=== PATIENT | male | born 1965 | race Caucasian/White ===

== ENCOUNTER → 2022-04-17 | Outpatient (CLI) | payer OTHER, SELFPAY ==
--- NOTE | 2022-04-17 19:07 | CT_ITS ---
STUDY: CT LEFT LOWER EXTREMITY WITHOUT CONTRAST REASON FOR EXAM: Left hip osteoarthritis, surgical planning. TECHNIQUE: Transaxial CT imaging of the lower extremity was performed. Sagittal and coronal images were reconstructed. Individualized dose optimization techniques were used for this CT. COMPARISON: None. FINDINGS: Hips: There are subchondral radiolucencies and sclerosis with flattening of the superior left femoral head suggestive of avascular necrosis (coronal reconstruction 70-75). There is joint space loss and mild subchondral cystic change of the left acetabulum (coronal reconstructions 68-70). There is mild joint space narrowing of the superomedial right hip (coronal reconstruction 67). There is vascular calcification. There is enlargement of the prostate (coronal reconstruction 74). Knees: There is mild joint space narrowing of the lateral femorotibial compartment of the left knee (coronal reconstruction 31). There is mild joint space narrowing of the medial femorotibial compartment of the right knee (coronal reconstruction 28). CT/Extremity Lower without Contra IMPRESSION: Left hip osteoarthritis with flattening of the superior left femoral head suggestive of avascular necrosis. Electronically Signed: Rodrick Montez MD at 14:52 EDT ,
== END | disposition home or self-care (01) ==
PROVIDERS: PCP Family Medicine; Visit Provider Student in an Organized Health Care Education/Training Program
DX: M16.12 Unilateral primary osteoarthritis, left hip (principal); M25.552 Pain in left hip
CPT/HCPCS: 73700

== ENCOUNTER 2022-05-10 05:24 | Day surgery (SDC) | payer OTHER, SELFPAY ==
[2022-05-10] VITALS (14 sets, daily range): BP systolic 109–146; BP diastolic 71–122; PULSE 63–111; RESP 16–18; TEMP 35.7–37.2; O2SAT 94–100; BMI 27.0
[2022-05-10] MEDS: Lactated Ringers 1,000 ML 999 ML IV (06:28)
[2022-05-10] MEDS: Magnesium 1 GM over 15 mins IV (06:28)
[2022-05-10] MEDS: Gabapentin 600 MG Tablet PO (06:29)
[2022-05-10] MEDS: Acetaminophen 500 MG Tablet 1000 MG PO (06:29)
[2022-05-10] MEDS: Celecoxib 200 MG Capsule 400 MG PO (06:29)
[2022-05-10 06:36] LABS: Bedside Glucose 104 mg/dL (74-106)
[2022-05-10] MEDS: Cefazolin 2 GM in 0.9% Normal Saline 100 ML IV (07:30)
--- NOTE | 2022-05-10 07:30 | FEM_PTH ---
PATIENT: MARY HECK [place] [facility] [place][id number] AGE/SX: 56/M ROOM: RE05/10/[address]: Dr. Jd Vincent DO : 1965 BED: DIS: 05/10/2022 SPEC #: [id number] RECD: 05/10/22 10:57 STATUS: EWA RELevon #: [id number] MARNIE: 05/10/22 07:[address]: Jd Vincent DEPT: SURGICAL PATHOLOGY RECD BY: Rhea Ga ENTERED: 05/10/22 11:30 SP TYPE: FEM HEAD OTHR DR: Dr. Wilfredo Reno MD Tissues: Femoral region, NOS Procedures: Decalcification bone/plaque Surgery Specimen Level V HEADER OPERATION: ERAS, total hip replacement robotic arm assist PRE-OP DIAGNOSIS: Unilateral primary osteoarthritis left hip TISSUE SUBMITTED: Left hip bone MICROSCOPIC DIAGNOSIS Bone and tissue of left hip, total hip resection: Severe degenerative joint disease. AM:dee 05/16/2022 MICROSCOPIC DESCRIPTION Slides are reviewed. GROSS DESCRIPTION Received is one container labeled with the patient's name and designated left hip bone. The specimen consists of a deformed femoral head measuring 4.5 x 4.5 x 4 cm. Portion of femoral neck measures up to 1 cm in length. Focal royal-yellow geographic area is also noted on the surface measuring 4.5 x 4 cm. Two pieces of soft tissue are noted attached to the femoral head measuring in aggregate 4.5 x 3.5 x 1 cm. The articular surface displays prominent osteophyte formation, eburnation and bone erosion. Packing House Supervisor sections are submitted in two cassettes as follows: 1 - soft tissue, 2 ? femoral head after decalcification. / SJ:dee 05/10/2022 TC:5 CPT: 24859, 78369
[2022-05-10] MEDS: Lactated Ringers 1,000 ML 75 ML IV ×2 (07:31→10:01)
[2022-05-10] MEDS: TXA 1000mg in NS100 100ml (IVPB at Closure) 660 MG IV (07:45)
[2022-05-10] MEDS: dexAMETHasone 10 MG/ML Vial IV (07:50)
[2022-05-10] MEDS: TXA 1000mg in NS100 100ml (IVPB at Incision) 660 MG IV (09:50)
--- NOTE | 2022-05-10 10:56 | OP.PCM_ITS ---
Report of Operation Date of Procedure: 05/10/22 Description of Surgical Findings:: Preoperative diagnosis: Left hip avascular necrosis Postoperative diagnosis: Left hip avascular necrosis Procedure: Robotic assisted left total hip arthroplasty Surgeon: Jd Vincent DO Wireless Sales Associate: Kristine Perez PA-C Anesthesia: General endotracheal Anthesiologist: Complications: None apparent Drains: None Estimated blood loss: 200 cc Urinary output: none recorded IV fluids: 1500 cc crystalloid Specimens: Femoral head Surgical implants: [place] Accolade II 127 degree neck angle hip stem size #6, Biolox delta ceramic V 40 femoral head 36 mm outer diameter -2.5 mm neck length, [place] Trident X3 10 degree polyethylene insert, Trident 2 TriTanium cluster hole acetabular shell 54 mm diameter Indications: This is a 56-year-old male seen in the outpatient setting for left hip pain. X-rays showed minimal joint space narrowing superiorly but did show some femoral acetabular impingement. Patient also has extensive lumbar degenerative disc disease. He was referred to me for a left hip intra-articular corticosteroid injection. He underwent this about 3 months ago. He had very brief but complete relief of his left hip and groin pain. Pain quickly returned. I recommended a left total hip arthroplasty. Preoperative CT scan was utilized for Basilio software. CT scan demonstrated significant collapse of his femoral head concerning for avascular necrosis. I reviewed the procedure with the patient, its risk, benefits, alternatives. Risks included but were not limited to bleeding, infection, loss of life or limb, risk of anesthesia, neurovascular injury, persistent pain, instability, need for additional surgery, failure of orthopedic hardware, loosening, osteolysis, need for assistive devices long-term, leg length discrepancy. Patient expressed understanding wish to proceed with surgery. Description of procedure: I greeted the patient in same-day surgery holding area the day of surgery. He was identified by name, medical record number, and date of . All questions were answered to patient satisfaction. The operative extremity was marked with a surgical marker. Informed consent was confirmed with the patient. Patient underwent spinal anesthetic in the PACU prior to the procedure. At time of his procedure, patient brought the operative suite and positioned supine initially on a standard operating table. Gentle MAC anesthesia was administered. Patient was then positioned in a lateral decubitus position with the left side up. An axillary roll was placed under the patient's right axilla. The right fibular head was free. We then prepped and draped the right lower extremity in normal, sterile orthopedic fashion. Prior to the procedure, the [facility] plan was reviewed and appeared appropriate based on the patient's CT scan and anatomy. We performed a timeout with all parties in attendance in agreement with the side, site, and operation to be performed. No concerns were voiced and would like to proceed. 1 g TXA IV as well as 2 g Ancef was administered prior to the incision by anesthesia staff. 1 g TXA IV was administered at time of closure additionally. I first elected to place our pelvic array with a curvilinear incision over the iliac crest just posterior to the ASIS. I bluntly dissected down the level of the periosteum. I then drilled 3 intracortical pins with excellent cortical purchase. Pelvic array was then assembled and positioned appropriately. I then turned my attention to the hip. A standard posterior lateral incision was made curvilinear over the posterior lateral hip, centered on the tip of the greater trochanter. Full-thickness skin incision was made, approximately 12 cm in length. I sharply dissected down the level of the fascia caitlyn. Fascia caitlyn was then incised in line with the incision. I bluntly dissected through the raphae of the gluteus don. Femoral checkpoint was placed at this point. We then registered his femoral anatomy prior to dislocating the hip. I then internally rotated the hip. Limited gluteal bursectomy was performed to identify the short external rotators. A Cobra retractor was placed under his gluteus medius. Short external rotators were taken down with Bovie cautery and tagged for later repair with #2 Ethibond suture. This identified the underlying capsule. A trapezoidal shaped capsulotomy was made over the femoral neck carried posteriorly to the acetabular labrum. Labrum was released and the hip was dislocated. I then marked a standard femoral neck cut 1 fingerbreadth above the lesser trochanter. Sagittal saw was used to carefully cut the femoral neck. Femoral head was removed and examined. Significant collapse of the superior femoral dome and fragmentation of cartilage with loose bodies noted in the joint was noted. It was sent to pathology per hospital policy. I then turned my attention to the acetabulum. Cobra retractors were placed anterior and posteriorly. Self-retaining retractor was placed superiorly. Acetabular labrum was excised with a long handled knife. Acetabular pulmonary was excised with Bovie cautery. Hemostasis was excellent at this point. I then registered the acetabulum with the Anna Lozabai robot successfully. I then brought in the Basilio robot with the acetabular reaming arm to a size 54. This was reamed and the planned position to the planned depth. Reamer was then removed. There was excellent bleeding bone at the base and excellent remaining anterior posterior oates of the acetabulum. 54 mm acetabular component was selected for and attached to the rn acute arm of the robot. I placed the acetabular component near planned position before attaching to the robot. The robot then held the acetabular shell in position while I impacted it to an appropriate depth. The acetabular cup was then removed from the robotic arm. It had excellent rim fit. I placed a 25 mm cancellous screw through the cup for additional fixation in the posterior superior quadrant. I then selected a 10 degree posterior lipped liner and impacted this per garbage collector recommendations. I then turned my attention to the femur. Box chisel was then utilized to gain access to the femoral canal. Canal finder was placed. Sequential broaches were used and press-fit manner. A final size 6 achieved excellent vertical and rotational stability. We then trialed with a 127 degree hip stem as templated. A -2.5 and -5 mm neck length were trialed. The -2.5 mm neck achieved greater stability as well as allowed some lengthening of the limb, which was desired. Trials were then removed. We copiously irrigated the wound with normal saline solution, Betadine solution. A size 6 stem was then impacted with excellent fixation. Final head was then impacted over clean, dry Portillo taper neck. Final reduction was performed. A posterior capsular repair was performed with #2 Ethibond suture and bone tunnels, as well as the short external rotator repair. Femoral checkpoint was removed. Pelvic array pins were removed. IT band was closed watertight with #1 strata fix suture. Deeper fascial layers were closed with 0 Vicryl suture in interrupted fashion. Subcutaneous layers were reapproximated with 2-0 Vicryl suture and skin reapproximated with running subcuticular 3-0 strata fix and skin glue. Pelvic array incision was closed with buried 2-0 Vicryl suture and skin glue.. A silver dressing was applied. Patient tolerated procedure well without complication. He was positioned back in the supine position on his hospital bed. He was transferred to PACU in stable condition. A pillow was placed between the patient's leg to be present while he is in bed. Need for skilled catalog library assistant: Kristine Perez PA-C was critical to the outcome of the case. During the course of the procedure the physician catalog library assistant played a vital role. Her intimate knowledge of my steps in the procedure aided in safe and expedient completion of the procedure. The PA played a vital role in positioning particularly in obtaining the appropriate positioning. The PA was also vital in the retraction of soft tissues during the exposure and protecting vital structures. The PA was also vital and protecting soft tissues during times of bony cuts. She also played a vital role in closure with my direct supervision. The PA was also important during reduction and dislocation of the joint and trials intraoperatively. Post Operative Plan: Plan for discharge home after same-day joint replacement protocol. He is to be seen by physical and occupational therapies prior to discharge. He has outpatient therapy scheduled tomorrow. Weightbearing: Weightbearing as tolerated left lower extremity, posterior hip precautions Antibiotics: None DVT Prophylaxis: Aspirin 81 mg twice daily to start tomorrow [place]: None Dressing: Maintain silver dressing x 5 days X-Rays: PACU x-rays were reviewed demonstrated well-positioned left total hip arthroplasty implant. Follow-up 2-week x-rays in the office. Follow-up: 2 weeks in my office as scheduled
--- NOTE | 2022-05-10 10:59 | RAD_ITS ---
STUDY: X-RAY - PELVIS AND LEFT HIP REASON FOR EXAM: Male, 56 years old. Post-op L LORE -- in PACU TECHNIQUE: 2 views of the pelvis and hip. COMPARISON: None. FINDINGS: The patient is status post left total hip replacement. There is good alignment. Postoperative soft tissue changes. RAD/Hip Min 2 Views (Portable) IMPRESSION: Status post left total hip replacement. There is good alignment. Postoperative soft tissue swelling. Electronically Signed: Jose Guadalupe Kearns MD at 14:44 EDT ,
--- NOTE | 2022-05-10 11:08 | DCINST_ITS ---
Discharge Instructions Follow Up Care Test Results: Test results from this visit will be discussed in further detail at your follow- up appointment, if applicable. Discharge Plan Admission Primary Reason for Your Visit: Left total hip replacement Attending Provider: Jd Vincent Primary Care Provider: Wilfredo Reno Instructions Additional Instructions / Restrictions: Follow preprinted instructions from your surgeons office Discharge Orders/Prescriptions Prescriptions: No Action atorvastatin 20 mg tablet 10 mg PO DAILY Label Comments: TAKE 1/2 (ONE-HALF) TABLET BY MOUTH EVERY DAY AT BEDTIME meloxicam 15 mg tablet 15 mg PO DAILY Label Comments: TAKE 1 TABLET BY MOUTH ONCE DAILY tramadol 50 mg tablet 50 mg PO QHS Label Comments: TAKE 1 TABLET BY MOUTH EVERY 6 HOURS NEEDED FOR PAIN lisinopril 5 mg tablet 5 mg PO DAILY Label Comments: TAKE 1 TABLET BY MOUTH ONCE DAILY Referrals / Follow Up: Jd Vincent DO [Med Staff - Active Staff] - Within 2 Weeks Wilfredo Reno MD [Primary Care Provider] - Disposition Disposition (needs filled in before D/C Order can be placed): Home, Self Care
== END 2022-05-10 16:37 | disposition home or self-care (01) ==
LOC: SDC 05:24 → AC 05:29
PROVIDERS: PCP Family Medicine; Referring Provider Student in an Organized Health Care Education/Training Program; Visit Provider Student in an Organized Health Care Education/Training Program
PROC: 8E0Y0CZ Robotic Assisted Procedure of Lower Extremity, Open Approach (ICD-10-PCS; CPT 27130; principal; 2022-05-10 07:00)
DX: M16.12 Unilateral primary osteoarthritis, left hip (principal); M87.052 Idiopathic aseptic necrosis of left femur; I10 Essential (primary) hypertension; E78.00 Pure hypercholesterolemia, unspecified; E66.3 Overweight; Z71.3 Dietary counseling and surveillance; Z68.27 Body mass index [BMI] 27.0-27.9, adult; Z72.89 Other problems related to lifestyle; Z79.899 Other long term (current) drug therapy; Z87.891 Personal history of nicotine dependence
CPT/HCPCS: 27130; S2900; 01214; 73502; 82962; 88307; 88311; 97162; C1776; J7120; J3475

== ENCOUNTER → 2023-04-18 | Outpatient (CLI) | payer OTHER, SELFPAY ==
--- NOTE | 2023-04-18 08:11 | CT_ITS ---
CT BILATERAL LOWER EXTREMITY WITH 3-D IMAGING [facility]. CLINICAL INDICATION: PAIN RIGHT HIP TECHNIQUE: Axial CT images of the BILATERAL lower extremity was performed without IV contrast material. Coronal and sagittal reformats were provided. RADIATION DOSAGE (If Supplied By Facility): CTDIvol = ( 12.20 ) mGy, DLP = ( 865.16 ) mGycm COMPARISON: No relevant prior comparison study available FINDINGS: Bones: Multiple axial tomographic images of the hips and knee were obtained. Coronal and sagittal reconstruction was obtained as well. There is evidence of a degenerative arthritis of both sacroiliac joints more prominent on the right side. The patient is status post left total hip replacement. There is a moderate to marked in degree of joint space narrowing of the right hip joint with the subchondral heterogeneity of the femoral head. Avascular necrosis should be ruled out. Imaging of both knee joints was obtained. There is a mild degree of joint space narrowing involving the medial and lateral compartments of the knee joint. Findings suggestive of chondrocalcinosis. Soft Tissues: The deep soft tissue structures are unremarkable. The superficial soft tissues are unremarkable without evidence of edema, hematoma, or foreign body. CT/Extremity Lower without Contra IMPRESSION: Moderate to marked degree of joint space narrowing of the right hip joint with findings suggestive of avascular necrosis of the right femoral head. The patient is status post left total hip replacement. Electronically Signed: Jose Guadalupe Kearns MD at 14:11 EDT ,
== END | disposition home or self-care (01) ==
PROVIDERS: PCP Family Medicine; Referring Provider Student in an Organized Health Care Education/Training Program; Visit Provider Student in an Organized Health Care Education/Training Program
DX: M87.051 Idiopathic aseptic necrosis of right femur (principal); M16.11 Unilateral primary osteoarthritis, right hip; M25.551 Pain in right hip
CPT/HCPCS: 73700

== ENCOUNTER 2023-05-09 05:18 | Day surgery (SDC) | payer OTHER, SELFPAY ==
--- NOTE | 2023-04-18 08:08 | EKG12_ITS ---
Test Reason : PRE OP Blood Pressure : / mmHG Vent. Rate : 066 BPM Atrial Rate : 066 BPM P-R Int : 154 ms QRS Dur : 084 ms QT Int : 350 ms P-R-T Axes : 001 018 -09 degrees QTc Int : 366 ms Normal sinus rhythm Normal ECG Confirmed by PENNIE CLARK, YVES ([id number]), sound editor AIDEN SHELDON ([id number]) on 04/19/2023 1:56:39 PM Referred By: Jd Vincent Confirmed By:YVES CASPER MD
--- NOTE | 2023-04-18 08:35 | RAD_ITS ---
STUDY: X-RAY CHEST REASON FOR EXAM: Male, 57 years old. Preoperative evaluation. TECHNIQUE: Frontal and lateral views of the chest. COMPARISON: None. FINDINGS: Hyperinflation. There is no demonstrated pleural abnormality. Normal size heart. Normal mediastinum and beth. Normal visualized pulmonary arteries. Mild aortic tortuosity. Normal visualized thoracic spine. Normal visualized ribs, clavicles, and shoulders. No abnormality of the visualized soft tissue structures of the upper abdomen. RAD/Chest PA and Lateral IMPRESSION: Hyperinflation with no acute or active cardiopulmonary disease. Electronically Signed: Eliel Crump MD at 10:49 EDT ,
[2023-04-18 09:22] LABS: Absolute Lymphocyte Count 1.95 X10^3/uL (0.83-4.51); Basophil% 1.5 % (0-1); Eosinophil# 0.13 X10^3/uL; Eosinophils% 1.9 % (0-5); Hematocrit 45.2 % (40-54); Hemoglobin 15.2 g/dL (13.0-16.5); Lymphocyte # 1.95 X10^3/ul (0.83-4.51); Lymphocyte % 28.9 % (19-41); Mean Corp Hgb Conc 33.6 g/dL (32-36); Mean Corpuscular Hgb 31.4 pg (27.0-32.0); Mean Corpuscular Volume 93.4 fL (80-94); Mean Platelet Vol. 9.2 fl (6.2-12.0); Monocyte# 0.59 X10^3/uL; Monocyte% 8.7 % (0-10); NRBC Flagged by Analyzer 0 % (0-5); Neutrophil # 3.95 X10^3/uL (2.7-7.7); Neutrophil % 58.6 % (47-70); Platelet Count 253 K/mm3 (150-450); RBC Distribution Width CV 13.4 % (11.6-14.6); Red Blood Count 4.84 M/mm3 (4.6-6.2); White Blood Count 6.8 K/mm3 (4.4-11.0)
[2023-04-18 09:49] LABS: Albumin, Serum 4.5 g/dL (3.2-5.0); Anion Gap 6 (5-15); BUN 16 mg/dL (7-18); Calcium,Total 9.6 mg/dL (8.5-10.1); Chloride 104 mmol/L (98-107); Creatinine, Serum 0.89 mg/dL (0.70-1.30); EST Glomerular Filtration Rate 93 mL/min (>60); Est Glom Filt Rate - Afr Amer 112 mL/min (>60); Glucose 98 mg/dL (74-106); Magnesium 2.6 mg/dL (1.6-2.6); Potassium 4.5 mmol/L (3.5-5.1); Sodium Level 137 mmol/L (136-145)
[2023-05-09] VITALS (7 sets, daily range): BP systolic 104–153; BP diastolic 42–97; PULSE 69–102; RESP 16; TEMP 35.9–36.5; O2SAT 96–99; BMI 27.3
--- NOTE | 2023-05-09 | HIP_PTH ---
PATIENT: MARY HECK LOC: [facility] – [place] U#:[id number] AGE/SX: 57/M ROOM: RE05/09/[address]: Dr. Jd Vincent DO : 1965 BED: DIS: 05/09/2023 SPEC #: [id number] RECD: 05/09/23 11:19 STATUS: EWA REQ #: [id number] MARNIE: 05/09/23 00:[address]: Jd Vincent DEPT: SURGICAL PATHOLOGY RECD BY: Quang Vera ENTERED: 05/09/23 11:33 SP TYPE: TOTAL HIP OTHR DR: Dr. Wilfredo Reno MD Tissues: Hip, NOS Procedures: Decalcification bone/plaque Surgery Specimen Level IV HEADER OPERATION: ERAS, robotic assisted right total hip arthroplasty PRE-OP DIAGNOSIS: Osteoarthritis right hip TISSUE SUBMITTED: Bone right hip MICROSCOPIC DIAGNOSIS Bone and tissue of right hip, total hip resection: Severe degenerative joint disease. AM:dee 05/13/2023 MICROSCOPIC DESCRIPTION Slides are reviewed. GROSS DESCRIPTION Received is one container labeled with the patient's name and designated bone right hip. The specimen consists of a royal femoral head measuring 5.0 x 5.5 x 4.5 cm. Focal area shows disruption of the cartilage. The articular surface displays prominent osteophyte formation, eburnation and bone erosion. The soft tissue entirely consists of bone reaming and measures 6.5 x 7.0 x 2.0 cm. Candy Packer sections are submitted in two cassettes after decalcification as follows: 1 - bone reaming, 2 - femoral head. / KELIN:dee 05/09/2023 TC:5 CPT: 62516, 15810
[2023-05-09 06:22] LABS: Bedside Glucose 117 mg/dL (74-106)
[2023-05-09] MEDS: Acetaminophen 500 MG Tablet 1000 MG PO (06:32)
[2023-05-09] MEDS: Lactated Ringers 1,000 ML 999 ML IV ×2 (06:33→08:00)
[2023-05-09] MEDS: Gabapentin 600 MG Tablet PO (06:33)
[2023-05-09] MEDS: Magnesium 1 GM over 15 mins IV (06:33)
[2023-05-09] MEDS: Cefazolin 2 GM in 0.9% Normal Saline (100mL Bag) 100 ML IV (07:29)
[2023-05-09] MEDS: dexAMETHasone 10 MG/ML Vial IV (07:40)
[2023-05-09] MEDS: TXA 1000mg in NS100 100ml (IVPB at Incision) 660 MG IV (07:40)
[2023-05-09] MEDS: TXA 1000mg in NS100 100ml (IVPB at Closure) 660 MG IV (09:20)
[2023-05-09] MEDS: JPS (Morphine 10mg/ml) OPERA.SITE (09:22)
--- NOTE | 2023-05-09 10:00 | RAD_ITS ---
STUDY: X-RAY - PELVIS AND RIGHT HIP REASON FOR EXAM: Male, 57 years old. Post op LORE -- in PACU. TECHNIQUE: 2 views of the pelvis and right hip. COMPARISON: None. FINDINGS: There is a new right hip total arthroplasty in place. There is no periprosthetic fracture. There is adjacent soft tissue gas, compatible with recent surgery. Normal bilateral iliac wings, sacroiliac joints and visualized sacrum. Normal bilateral superior and inferior pubic rami. Normal pubic symphysis. Normal bilateral ischial tuberosities. There is a non-specific bowel gas pattern. Normal visualized soft tissue structures. RAD/Hip Min 2 Views (Portable) IMPRESSION: New right hip arthroplasty, with no periprosthetic fracture. Electronically Signed: Clay Randhawa MD at 9:55 EDT ,
--- NOTE | 2023-05-09 10:10 | DCINST_ITS ---
Discharge Instructions Follow Up Care Test Results: Test results from this visit will be discussed in further detail at your follow- up appointment, if applicable. Discharge Plan Admission Primary Reason for Your Visit: Right total hip arthroplasty Attending Provider: Jd Vincent Primary Care Provider: Wilfredo Reno Instructions Additional Instructions / Restrictions: Follow preprinted instructions from your surgeons office Discharge Orders/Prescriptions Prescriptions: New cephalexin 500 mg capsule 500 mg PO Q6H 1 Days Qty: 4 0RF Continued atorvastatin 20 mg tablet 10 mg PO DAILY Patient Comments: TAKE 1/2 (ONE-HALF) TABLET BY MOUTH EVERY DAY AT BEDTIME meloxicam 15 mg tablet 15 mg PO DAILY Patient Comments: TAKE 1 TABLET BY MOUTH ONCE DAILY lisinopril 5 mg tablet 5 mg PO DAILY Patient Comments: TAKE 1 TABLET BY MOUTH ONCE DAILY Other Ambulatory Orders: 12 Lead EKG (Routine) Timeframe: [id number] Location: None Selected Ordered By: Dr. Jd Vincent Referrals / Follow Up: Wilfredo Reno MD [Primary Care Provider] - Disposition Disposition (needs filled in before D/C Order can be placed): Home, Self Care
[2023-05-09] MEDS: Lactated Ringers 1,000 ML 125 ML IV (10:21)
[2023-05-09] MEDS: Cefazolin 1 GM/50 ML BAG IV (12:17)
[2023-05-09] MEDS: oxyCODONE 5 MG Tablet PO (13:21)
--- NOTE | 2023-05-09 14:52 | OP.PCM_ITS ---
Report of Operation Date of Procedure: 05/09/23 Description of Surgical Findings:: Preoperative diagnosis: Right hip primary osteoarthritis Postoperative diagnosis: Right hip primary osteoarthritis Procedure: Robotic arm assisted right total hip arthroplasty Surgeon: Jd Vincent DO Shorer: Kristine Perez PA-C Anesthesia: General endotracheal Instrument Lens Grinder Apprentice: Deshawn Fiore CRNA Complications: None apparent Drains: None Estimated blood loss: 150 cc Urinary output: none recorded IV fluids: 2200 cc crystalloid Specimens: Femoral head Surgical implants: [place] Accolade II 132 degree neck angle hip stem size #6, Biolox delta ceramic V 40 femoral head 36 mm outer diameter -5 mm neck length, [place] Trident X3 10 degree polyethylene insert, Trident 2 TriTanium cluster hole acetabular shell 56 mm diameter Indications: This is an 57-year-old male seen in the outpatient setting for right hip pain. X-rays revealed severe right hip osteoarthritis. He failed oral [id number] analgesics including NSAIDs and Tylenol, activity modification. I recommended surgical intervention the form of right robotic assisted total hip arthroplasty. I reviewed the procedure with the patient, its risk, benefits, alternatives. Risks included but were not limited to bleeding, infection, loss of life or limb, risk of anesthesia, neurovascular injury, persistent pain, instability, need for additional surgery, failure of orthopedic hardware, loosening, osteolysis, need for assistive devices long-term, leg length discrepancy. Patient expressed understanding wish to proceed with surgery. Description of procedure: I greeted the patient in same-day surgery holding area the day of surgery. He was identified by name, medical record number, and date of . All questions were answered to patient satisfaction. The operative extremity was marked with a surgical marker. Informed consent was confirmed with the patient. Patient underwent spinal anesthetic in the PACU prior to the procedure. At time of his procedure, patient brought the operative suite and positioned supine initially on a standard operating table. Gentle MAC anesthesia was administered. Patient was then positioned in a lateral decubitus position with the right side up. Patient was held in place with the elevated hip positioner systems. An axillary roll was placed under the patient's left axilla. The left fibular head was free. We then prepped and draped the right lower extremity in normal, sterile orthopedic fashion. Prior to the procedure, the Basilio plan was reviewed and appeared appropriate based on the patient's CT scan and anatomy. We performed a timeout with all parties in attendance in agreement with the side, site, and operation to be performed. No concerns were voiced and would like to proceed. 1 g TXA IV as well as 2 g Ancef was administered prior to the incision by anesthesia staff. 1 g TXA IV was administered at time of closure additionally. I first elected to place our pelvic array with a curvilinear incision over the iliac crest just posterior to the ASIS. I bluntly dissected down the level of the periosteum. I then drilled 3 intracortical pins with excellent cortical purchase. Pelvic array was then assembled and positioned appropriately. I then turned my attention to the hip. A standard posterior lateral incision was made curvilinear over the posterior lateral hip, centered on the tip of the greater trochanter. Full-thickness skin incision was made, approximately 12 cm in length. I sharply dissected down the level of the fascia caitlyn. Fascia caitlyn was then incised in line with the incision. I bluntly dissected through the raphae of the gluteus don. Femoral checkpoint was placed at this point. We then registered the femoral anatomy prior to dislocating the hip. I then internally rotated the hip. Limited gluteal bursectomy was performed to identify the short external rotators. A Cobra retractor was placed under his gluteus medius. Short external rotators were taken down with Bovie cautery and tagged for later repair with #2 Ethibond suture. This identified the underlying capsule. A hockey-stick shaped capsulotomy was made over the femoral neck carried posteriorly to the acetabular labrum. Labrum was released and the hip was dislocated. I then marked a standard femoral neck cut 1 fingerbreadth above the lesser trochanter. Sagittal saw was used to carefully cut the femoral neck. Femoral head was removed and examined and appeared benign. It was sent to pathology per hospital policy. I then turned my attention to the acetabulum. Cobra retractors were placed anterior and posteriorly. Self-retaining retractor was placed superiorly. Acetabular labrum was excised with a long handled knife. Acetabular pulvinar was excised with Bovie cautery. Hemostasis was excellent at this point. I then registered the acetabulum with the [employer] robot successfully. I then brought in the Basilio robot with the acetabular reaming arm to a size 56. This was reamed and the planned position to the planned depth. Reamer was then removed. There was excellent bleeding bone at the base and excellent remaining anterior posterior oates of the acetabulum. 56 mm acetabular component was selected for and attached to the ict account manager arm of the robot. I placed the acetabular component near planned position before attaching to the robot. The robot then held the shell in position while I impacted it to an appropriate depth. The acetabular cup was then removed from the robotic arm. It had excellent rim fit. A unicortical single 25 mm cancellous screw was then placed through the acetabular shell for additional fixation. I then selected a 10 degree posterior lipped liner and impacted this per locksmith helper recommendations. I then turned my attention to the femur. Femoral elevator was placed below the greater trochanter and the hip was brought into a flexed and internally rotated position. Box chisel was then utilized to gain access to the femoral canal. Canal finder was placed. Sequential broaches were used and press-fit manner. A final size 6 achieved excellent vertical and rotational stability. We then trialed with a 127 degree hip stem as templated. I trialed a -2.5 mm neck length. This was excessively tight with excess abductor tension. The operative extremity was significantly longer than the contralateral lower extremity. The hip was dislocated. I elected to trial a 132 degree hip stem with a -5 mm neck length. The hip was reduced. There is excellent stability through all planes of motion. Leg lengths were equal on examination and with robotic measurements. Final dislocation of trials was performed. Trials were then removed. We copiously irrigated the wound with normal saline solution. A size 6 stem was then impacted with excellent fixation. Final head was then impacted over clean, dry Portillo taper neck. Final reduction was performed. A 3-minute dilute Betadine soak was performed. Wound was then copiously irrigated with normal saline solution. A posterior capsular repair was performed with #2 Ethibond suture and bone tunnels, as well as the short external rotator repair. Femoral checkpoint was removed. Pelvic array pins were removed. IT band was closed watertight with #1 strata fix suture. Deeper fascial layers were closed with 0 Vicryl suture in interrupted fashion. Subcutaneous layers were reapproximated with 2-0 Vicryl suture and skin reapproximated with running subcuticular 3-0 strata fix and skin glue. Pelvic array incision was closed with buried 2-0 Vicryl suture and skin glue.. A silver dressing was applied. Patient tolerated procedure well without compl ication. He was positioned back in the supine position on his hospital bed. He was transferred to PACU in stable condition. A pillow was placed between the patient's leg to be present while he is in bed. Need for skilled assistant casino shift manager: Kristine Perez PA-C was critical to the outcome of the case. During the course of the procedure the physician assistant casino shift manager played a vital role. Her intimate knowledge of my steps in the procedure aided in safe and expedient completion of the procedure. The PA played a vital role in positioning particularly in obtaining the appropriate positioning. The PA was also vital in the retraction of soft tissues during the exposure and projecting vital structures. The PA was also vital and protecting soft tissues during times of bony cuts. She also played a vital role in closure with my direct supervision. The PA was also important during reduction and dislocation of the joint and trials intraoperatively. Post Operative Plan: Plan for same-day discharge after meeting same-day surgery criteria. We will mobilize patient with therapy after spinal anesthesia resolves. Weightbearing: Weightbearing as tolerated right lower extremity, posterior hip precautions. Antibiotics: Ancef 1 g prior to discharge, 24 hours oral Keflex DVT Prophylaxis: Aspirin 81 mg twice daily to start tomorrow [place]: None Dressing: Maintain silver dressing x 5 days X-Rays: PACU x-rays were reviewed demonstrated well-positioned right total hip arthroplasty implant. Follow-up 2-week x-rays in the office. Follow-up: 2 weeks in my office as scheduled. Physical therapy scheduled to start tomorrow as an outpatient.
== END 2023-05-09 15:01 | disposition home or self-care (01) ==
LOC: SDC 05:24 → AC 05:26
PROVIDERS: PCP Family Medicine; Referring Provider Student in an Organized Health Care Education/Training Program; Visit Provider Student in an Organized Health Care Education/Training Program
PROC: 8E0Y0CZ Robotic Assisted Procedure of Lower Extremity, Open Approach (ICD-10-PCS; CPT 27130; principal; 2023-05-09 07:00)
DX: M16.11 Unilateral primary osteoarthritis, right hip (principal); M87.051 Idiopathic aseptic necrosis of right femur; I10 Essential (primary) hypertension; E78.00 Pure hypercholesterolemia, unspecified; F10.90 Alcohol use, unspecified, uncomplicated; Z96.642 Presence of left artificial hip joint; Z79.899 Other long term (current) drug therapy; Z87.891 Personal history of nicotine dependence
CPT/HCPCS: 27130; S2900; 01214; 36415; 71046; 73502; 80048; 82040; 82962; 83735; 85025; 87077; 87081; 88305; 88311; 93005; 97162; C1776; J7120; J2405; J3475

== ENCOUNTER → 2024-12-24 | Outpatient (CLI) | payer OTHER, SELFPAY ==
[2024-12-24 10:48] LABS: Hematocrit 45.6 % (40-54); Hemoglobin 15.9 g/dL (13.0-16.5); Mean Corp Hgb Conc 34.9 g/dL (32-36); Mean Corpuscular Hgb 31.7 pg (27.0-32.0); Mean Platelet Vol. 9.5 fl (6.2-12.0); Platelet Count 259 K/mm3 (150-450); RBC Distribution Width CV 13.6 % (11.6-14.6); RBC Distribution Width SD 45.8 fl (35.1-43.9); Red Blood Count 5.01 M/mm3 (4.6-6.2); White Blood Count 5.5 K/mm3 (4.4-11.0)
[2024-12-24 11:23] LABS: ALB/GLOB Ratio 1.4 RATIO (0.9-2.4); AST(SGOT) 64 U/L (<=37); Alanine Aminotransfer ALT/SGPT 23 U/L (<=46); Albumin, Serum 4.8 g/dL (3.4-4.8); Alkaline Phosphatase 77 U/L (40-129); Anion Gap 12 (5-15); BUN 13 mg/dL (4-19); BUN/Creat Ratio 13.8 RATIO (10-20); Calcium,Total 10.1 mg/dL (7.6-11.0); Carbon Dioxide 21.3 mmol/L (21.0-32.0); Chloride 103 mmol/L (98-108); Creatinine, Serum 0.97 mg/dL (0.70-1.20); EST Glomerular Filtration Rate 89 (>60); Globulin 3.5 g/dL (2.2-4.2); Glucose 102 mg/dL (70-99); Magnesium 2.3 mg/dL (1.5-2.2); Potassium 4.5 mmol/L (3.3-5.1); Protein, Total 8.2 g/dL (5.9-8.4); Sodium Level 136 mmol/L (133-145); Thyroid Stim Hormone (TSH) 0.852 uIU/mL (0.300-4.200); Total Bilirubin 1.12 mg/dL (0.00-1.30)
== END | disposition home or self-care (01) ==
LOC: LAB 09:50
PROVIDERS: PCP Family Medicine; Referring Provider Internal Medicine Cardiovascular Disease; Visit Provider Internal Medicine Cardiovascular Disease
DX: I10 Essential (primary) hypertension (principal); R55 Syncope and collapse
CPT/HCPCS: 36415; 80053; 83735; 84443; 85027

== ENCOUNTER → 2025-02-03 | Outpatient (CLI) | payer OTHER, SELFPAY ==
--- OUTSIDE RECORDS SUMMARY | 2025-02-03 07:23 | XMS RPT_ITS | CCD ---
Author Organization [facility] Care Team Providers Care Children'S Book Author Name Role Phone Rowdy CLARK, Wilfredo Evans Unavailable Wilfredo Reno MD Unavailable German CLARK, Dr. Sanchez ([place] [facility]) A Unavail able Nuria CLARK, Annia Whatley Unavailable Mara OPERATIONS RESEARCH SCIENTIST, Sudha Unavailable Isaías OPERATIONS RESEARCH SCIENTIST, Ely Whatley Unavailable Unavailable Gino OPERATIONS RESEARCH SCIENTIST, Francia Unavailable Unavailable Elijah CLARK, Bladimir Lobato Unavailable Arielle SERNAC, Danyel Whatley Unavailable Arielle Yuliya C Unavailable Unavailable Killian OPERATIONS RESEARCH SCIENTIST, Taylor Unavailable Unavailable King PERLA-C, Jose Lorenzana Unavailable Connor THOMAS, Teresita Lobato Unavailable Unavaila ble Usama OPERATIONS RESEARCH SCIENTIST, Abdirahman Unavailable Unavailable Mutersbaugh OPERATIONS RESEARCH SCIENTIST, Amina K Unavailable Unavai yarelis SERNAC, Elizabeth J Unavailable Hema Thompson (Scribe) Unavailable Unavailab le Jaime OPERATIONS RESEARCH SCIENTIST, Annia De Los Santos Unavailable Unavailab le [place] OPERATIONS RESEARCH SCIENTIST, Antoinette Ewing Unavailable Unavailab yves Mtz MA, Taylor Unavailable Unavailable Vess OPERATIONS RESEARCH SCIENTIST, Neilee L Unavailable Unavailable Wengerd OPERATIONS RESEARCH SCIENTIST, Rosita Unavailable Unavailabl e Emmy OPERATIONS RESEARCH SCIENTIST, Thea N Unavailable Unavaila ble Zaugg OPERATIONS RESEARCH SCIENTIST, Asuncion Unavailable Unavailable Unavailable Unavailable Fern Pal MA Unavailable Unavailable MOHAMUDTIRSO Attending Unavailable WILFREDO RENO Admitting Unavailable WILFREDO RENO Attending Unavailable WILFREDO RENO Consulting Unavailable WILFREDO RENO Primary Care Unavailable PROVIDER, UNKNOWN Consulting Unavailable PROVIDER, UNKNOWN Consulting Unavailable PROVIDER, UNKNOWN Consulting Unavailable [facility] Unavailable Rowdy CLARK, Dr. Villalobos Primary Care Provider Rowdy CLARK, Dr. Villalobos Referring Provider Dr. Clementina Peñaloza MD Attending Provider Dr. Clementina Peñaloza MD Referring Provider Clementina Peñaloza Attending Unavailable Wilfredo Reno Referring Unavailable Wilfredo Reno Primary Care Unavailable Wilfredo Reno Primary Care Unavailable Clementina Peñaloza Referring Unavailable Clementina Peñaloza Attending Unavailable Allergies Allergy Classification Reported Allergen(s) Allergy Type Date of Onset Reaction(s) Facility (3 sources) Environmental Allergies: Uncoded; Translations: [Environmental Allergies: Uncoded] Allergy to substance 5 [facility] Medications Current Medications Medication Drug Class(es) Dates Sig (Normalized) Sig (Original) atorvastatin 10 mg oral tablet (20 sources) HMG-CoA Reductase Inhibitor Start: 09-17-2024 atorvastatin 10 mg tablet ; 1 (one) Tablet qhs for 0 days Quantity: 90 {Tablet} Refills: 1 Ordered: 17-Sep-2024 MD Wilfredo Reno Start: 17-Sep-2024 Start: 07-23-2024 atorvastatin 1 0 mg tablet ; 1 (one) Tablet qhs for 0 days Quantity: 90 {Tablet} Refills: 1 Ordered: 23-Jul-2024 MD Wilfredo Reno Start: 23-Jul-2024 Start: 05-12-2024 atorvastatin 1 0 mg tablet ; 1 (one) Tablet qhs for 0 days Quantity: 60 {Tablet} Refills: 0 Ordered: 12-May-2024 MD Cl Youssef Start: 12-May-2024 Start: 10-22-2023 atorvastatin 1 0 mg tablet ; 1 (one) Tablet qhs for 0 days Quantity: 90 {Tablet} Refills: 1 Ordered: 22-Oct-2023 MD Wilfredo Reno Start: 22-Oct-2023 Start: 07-17-2023 atorvastatin 1 0 mg tablet ; 1 (one) Tablet qhs for 0 days Quantity: 90 {Tablet} Refills: 1 Ordered: 17-Jul-2023 MD Wilfredo Reno Start: 17-Jul-2023 Start: 04-27-2022 End: 12-17-2024 take 10 mg by mouth once daily Atorvastatin 20 mg tabl et Discontinued 10 mg PO DAILY April 27, 2022 12:00am December 17, 2024 10:05am Start: 04-27-2022 take 10 mg by mouth once daily Atorvastatin Active 10 MG PO DAILY April 27, 2022 12:00am lisinopril 5 mg oral tablet (20 sources) Angiotensin Converting Enzyme Inhibitor Start: 04-27-2022 lisinopriL 5 mg tablet ; 1 (one) Tablet daily for 0 days Quantity: 90 {Tablet} Refills: 1 Ordered: 12-Oct-2024 MD Wilfredo Reno Start: 12-Oct-2024 Comments: [facility] Start: 07-07-2010 End: 11-09-2010 take 1 tablet by mouth once daily LISINOPRIL, 10MG (Oral Tablet) ; 1 (one) Tab daily for 0 days Quantity: 30 {Tab} Refills: 2 Ordered: 09-Nov-2010 MD Wilfredo Reno Start: 07-Jul-2010 End: 09-Nov-2010 Status: Inactive Comment on above: [facility] traMADol hydrochloride 50 mg oral tablet (1 source) Opioid Agonist Start: 04-27-2022 take 50 mg by mouth at bedtime Tramadol Active 50 MG PO AT BEDTIME April 27, 2022 12:00am Completed/Discontinued Medications Medication Drug Class(es) Dates Sig (Normalized) Sig (Original) [id number] 200 actuat albuterol 0.09 mg/actuat metered dose inhaler (20 sources) beta2-Adrenergic Agonist Start: 05-14-2013 End: 09-25-2013 take 1-2 puff(s) by inhalation every four to six hours as needed PROAIR HFA, 108 (90 Base)MCG/ACT (Inhalation Aerosol Solution) ; 1-2 puff(s) every 4-6 hours as needed for 0 days Quantity: 1 {inhaler(s)} Refills: 0 Ordered: 25-Sep-2013 ALAN Sandoval Start: 14-May-2013 End: 25-Sep-2013 Status: Inactive Comments: Medication taken as needed. Comment on above: Medication taken as needed. amoxicillin 500 mg oral capsule (20 sources) Penicillin-class Antibacterial Start: 06-08-2010 End: 06-18-2010 take 1 capsule by mouth three times daily AMOXICILLIN, 500MG (Oral Capsule) ; 1 Capsule three times daily for 10 days Quantity: 30 {Capsule} Refills: 0 Ordered: 08-Jun-2010 MD Annia Quiñones Start: 08-Jun-2010 End: 18-Jun-2010 Status: Inactive amoxicillin 875 mg / clavulanate 125 mg oral tablet (20 sources) Penicillin-class Antibacterial Start: 12-04-2016 End: 12-14-2016 take 1 tablet by mouth twice daily Augmentin 875-125 MG Oral Tablet ; 1 Tablet BID for 10 days Quantity: 20 {Tablet} Refills: 0 Ordered: 04-Dec-2016 YAA Tan Start: 04-Dec-2016 End: 14-Dec-2016 Status: Inactive azithromycin 500 mg oral tablet (20 sources) Macrolide Antimicrobial Start: 10-08-2017 End: 10-11-2017 take 1 tablet by mouth once daily Azithromycin 500 MG Oral Tablet ; 1 (one) Tablet daily for 3 days Quantity: 3 {Tablet} Refills: 0 Ordered: 08-Oct-2017 MD Bladimir Nava Start: 08-Oct-2017 End: 11-Oct-2017 Status: Inactive cephalexin 500 mg oral capsule (20 sources) Cephalosporin Antibacterial Start: 04-07-2024 End: 04-17-2024 cephALEXin 500 mg capsule ; 2 (two) Capsule bid for 10 days Quantity: 40 {Capsule} Refills: 0 Ordered: 07-Apr-2024 MD Wilfredo Reno Start: 07-Apr-2024 End: 17-Apr-2024 Status: Inactive Start: 06-26-2023 End: 07-06-2023 cephALEXin 500 mg capsule ; 2 (two) Capsule bid for 10 days Quantity: 40 {Capsule} Refills: 0 Ordered: 26-Jun-2023 MD Wilfredo Reno Start: 26-Jun-2023 End: 06-Jul-2023 Status: Inactive Start: 05-09-2023 End: 12-17-2024 take 1 capsule by mouth every six hours Cephalexin 500 mg capsule Discontinued 500 mg PO EVERY 6 HOURS 11 10May 09, 2023 12:00am December 17, 2024 10:04am cyclobenzaprine hydrochloride 10 mg oral tablet (20 sources) Muscle Relaxant Start: 03-18-2019 End: 08-24-2019 take 1 tablet by mouth three times daily as needed for pain Cyclobenzaprine HCl 10 MG Oral Tablet ; 1 (one) Tablet tid prn back pain for 0 days Quantity: 30 {Tablet} Refills: 0 Ordered: 24-Aug-2019 ALAN Vyas Antoinette Ewing Start: 18-Mar-2019 End: 24-Aug-2019 Status: Inactive fluticasone propionate 0.05 mg/actuat metered dose nasal spray (20 sources) Corticosteroid Start: 12-04-2016 End: 01-03-2017 take 2 spray(s) nasal route once daily Fluticasone Propionate 50 MCG/ACT Nasal Suspension ; 2 (two) sprays each nostril sprays each nostril daily for 30 days Quantity: 1 {Bottle} Refills: 0 Ordered: 04-Dec-2016 ALAN Talbot Start: 04-Dec-2016 End: 03-Jan-2017 Status: Inactive 60 actuat fluticasone propionate 0.1 mg/actuat / salmeterol 0.05 mg/actuat dry powder inhaler (20 sources) Corticosteroid, beta2-Adrenergic Agonist Start: 05-29-2013 End: 09-25-2013 ADVAIR DISKUS, 100-50MCG/DOSE (Inhalation Aerosol Powder Breath Activated) ; 1 inhalation two times daily for 0 days Quantity: 4 {Aero_Pow_Br_Act} Refills: 0 Ordered: 25-Sep-2013 ALAN Sandoval Start: 29-May-2013 End: 25-Sep-2013 Status: Inactive meloxicam 15 mg oral tablet (20 sources) Nonsteroidal Anti-inflammatory Drug Start: 04-27-2022 End: 12-17-2024 take 1 tablet by mouth once daily Meloxicam 15 mg tablet Discontinued 15 mg PO DAILY April 27, 2022 12:00am December 17, 2024 10:04am Meloxicam Status : Inactive methylPREDNISolone 4 mg oral tablet (20 sources) Corticosteroid Start: 07-16-2016 End: 07-22-2016 Medrol 4 MG Oral Tablet Therapy Pack ; 1 Tab as directed for 6 days Quantity: 1 {Dose_Pack} Refills: 0 Ordered: 16-Jul-2016 MD Bladimir Nava Start: 16-Jul-2016 End: 22-Jul-2016 Status: Inactive Start: 04-13-2014 End: 04-19-2014 MEDROL (DELANO), 4MG (Oral Tabl et) ; 1 Tab as directed for 6 days Quantity: 1 {Dose_Pack} Refills: 0 Ordered: 13-Apr-2014 MD Bladimir Nava Start: 13-Apr-2014 End: 19-Apr-2014 Status: Inactive naproxen 500 mg oral tablet (20 sources) Nonsteroidal Anti-inflammatory Drug Start: 07-16-2016 End: 12-04-2016 take 1 tablet by mouth twice daily as needed for pain Naproxen 500 MG Oral Tablet ; 1 (one) Tablet two times daily PRN pain for 0 days Quantity: 60 {Tablet} Refills: 3 Ordered: 04-Dec-2016 ALAN Willett Start: 16-Jul-2016 End: 04-Dec-2016 Status: Inactive predniSONE 20 mg oral tablet (20 sources) Start: 01-01-2022 End: 05-02-2022 take 3 tablets by mouth once daily, then take 2 tablets by mouth once daily, then take 1 tablet by mouth once daily, then take 0.5 tablet by mouth once daily predniSONE 20 MG Oral Tablet ; Tablet for 0 days Quantity: 20 {Tablet} Refills: 0 Ordered: 02-May-2022 SAMSON Mtz Start: 01-Jan-2022 End: 02-May-2022 Status: Inactive Comments: Take 3tabs qd for 3 days thenTake 2tabs qd for 3 days thenTake 1tab qd for 3 days thenTake 1/2tab qd for 4 days. Comment on above: Take 3tabs qd for 3 days thenTake 2tabs qd for 3 days thenTake 1tab qd for 3 days thenTake 1/2tab qd for 4 days. sildenafil 100 mg oral tablet (20 sources) Phosphodiesterase 5 Inhibitor Start: 09-16-2012 End: 04-13-2014 VIAGRA, 100MG (Oral Tablet) ; 1 (one) Tablet 30+ minutes before intercourse for 0 days Quantity: 2 {Tablet} Refills: 0 Ordered: 13-Apr-2014 ALAN Booth Start: 16-Sep-2012 End: 13-Apr-2014 Status: Inactive triamcinolone acetonide 0.25 mg/ml topical cream (20 sources) Corticosteroid Start: 04-13-2014 End: 01-04-2015 TRIAMCINOLONE ACETONIDE, 0.025% (External Cream) ; 1 (one) application(s) application(s) four times daily for 0 days Quantity: 80 {Gram} Refills: 0 Ordered: 04-Jan-2015 ALAN Willett Rosita Start: 13-Apr-2014 End: 04-Jan-2015 Status: Inactive Problems Active Problems Problem Classification Problem Date Documented Date Episodic/Chronic Abdominal pain (20 sources) Right upper quadrant pain; Translations: [Right upper quadrant pain] 09-05-2020 Episodic Alcohol-related disorders (5 sources) Alcohol abuse; Translations: [Alcohol abuse, uncomplicated] Onset: 12-24-2024 12-24-2024 Chronic Allergic reactions (20 sources) Contact dermatitis and other eczema due to plants [except food]; Translations: [Allergic condition] 02-10-2019 Episodic Asthma (20 sources) Reactive airway disease; Translations: [Unspecified asthma, uncomplicated] 02-10-2019 Chronic Disorders of lipid metabolism (20 sources) Hyperlipidemia; Translations: [Hyperlipidemia, unspecified] Onset: 12-24-2024 07-17-2023 Chronic Essential hypertension (20 sources) Benign essential hypertension; Translations: [Essential (primary) hypertension] Onset: 12-30-2024 07-15-2017 Chronic Immunizations and screening for infectious disease (20 sources) Requires diphtheria, tetanus and pertussis vaccination; Translations: [Encounter for immunization] 08-24-2019 Episodic Influenza (20 sources) Influenza; Translations: [Influenza due to unidentified influenza virus with other respiratory manifestations] 10-08-2017 Episodic Miscellaneous mental health disorders (20 sources) Psychosexual dysfunction associated with inhibited sexual excitement; Translations: [Other sexual dysfunction not due to a substance or known physiological condition] 12-04-2016 Chronic Osteoarthritis (20 sources) Osteoarthritis of left hip joint; Translations: [Unilateral primary osteoarthritis, left hip] 05-02-2022 Chronic Other aftercare (20 sources) Long-term (current) use of other medications 09-18-2011 Episodic Other circulatory disease (20 sources) Elevated blood pressure reading without diagnosis of hypertension 06-08-2010 Episodic Other connective tissue disease (20 sources) History of repair of hip joint; Translations: [Presence of left artificial hip joint] 07-17-2023 Chronic Comment on above: Sept 2022 Other connective tissue disease (2 sources) Recurrent falls ; Translations: [Repeated falls] 12-17-2024 Episodic Other connective tissue disease (1 source) Repeated falls; Translations: [Repeated falls] Onset: 12-24-2024 Episodic Other ear and sense organ disorders (20 sources) Impacted cerumen 06-08-2010 Episodic Other injuries and conditions due to external causes (20 sources) Injury of finger; Translations: [Unspecified injury of unspecified wrist, hand and finger(s), initial encounter] 02-10-2019 Episodic Other injuries and conditions due to external causes (20 sources) Injury of right rotator cuff; Translations: [Unspecified injury of muscle(s) and tendon(s) of the rotator cuff of right shoulder, initial encounter] 09-17-2024 Episodic Other injuries and conditions due to external causes (20 sources) Injury of left hand; Translations: [Unspecified injury of left wrist, hand and finger(s), initial encounter] 11-16-2024 Episodic Other non-traumatic joint disorders (20 sources) Hip pain; Translations: [Pain in right hip] 07-17-2023 Episodic Other non-traumatic joint disorders (20 sources) Pain in left shoulder; Translations: [Pain in joint, shoulder region] 02-10-2019 Episodic Other non-traumatic joint disorders (20 sources) Pain in right shoulder; Translations: [Pain in joint, shoulder region] 02-10-2019 Episodic Other nutritional; endocrine; and metabolic disorders (20 sources) Overweight in adulthood with body mass index of 25 or more but less than 30; Translations: [Body mass index (BMI) 26.0-26.9, adult] 01-22-2019 Episodic Other screening for suspected conditions (not mental disorders or infectious disease) (20 sources) Patient encounter status; Translations: [Encounter for screening for malignant neoplasm of colon] 2022 Episodic Other upper respiratory disease (1 source) Allergic rhinitis 04-02-2024 Chronic Other upper respiratory infections (20 sources) Sinusitis; Translations: [Chronic sinusitis, unspecified] 06-26-2023 Chronic Other upper respiratory infections (20 sources) Acute sinusitis; Translations: [Acute sinusitis, unspecified] 12-04-2016 Episodic Pneumonia (except that caused by tuberculosis or sexually transmitted disease) (20 sources) Pneumonia; Translations: [Pneumonia, unspecified organism] 05-14-2013 Episodic Residual codes; unclassified (20 sources) Sleep apnea; Translations: [Sleep apnea, unspecified] 07-17-2023 Chronic Residual codes; unclassified (20 sources) Tobacco user; Translations: [Tobacco use] 05-29-2013 Episodic Residual codes; unclassified (20 sources) Influenza vaccination declined; Translations: [Immunization not carried out because of patient refusal] 07-23-2024 Episodic Spondylosis; intervertebral disc disorders; other back problems (20 sources) Low back pain; Translations: [Lumbago] 07-17-2023 Episodic Sprains and strains (20 sources) Strain of knee; Translations: [Strain of unspecified muscle(s) and tendon(s) at lower leg level, right leg, initial encounter] 02-10-2019 Episodic Syncope (20 sources) Syncope; Translations: [Syncope and collapse] Onset: 12-24-2024 11-12-2024 Episodic Unclassified (20 sources) Follow up for multiple chronic conditions - The patient is here for follow-up of hyperlipidemia and hypertension. The patient always takes the prescribed medications. No side effects noted. The patient has an active lifestyle but no regular exercise program (walks a lot). The patient's out of office blood pressure checks occur rarely. The patient states that there is no recent angina or dyspnea and they do not have headaches. The patient states that the disease has no overall impact. Note for Multiple chronic conditions follow-up: Pt has a bump on his left shoulder that he wants checked. Present for many years 01-02-2023 Unclassified (20 sources) Follow Up for Multiple Chronic Conditions - The patient is here for follow-up of hyperlipidemia and hypertension. The patient usually takes the prescribed medications. No side effects noted (needs refills). The patient engages in regular exercise program 3-5 times per week (walks two miles a day). The patient's out of office blood pressure checks occur rarely and dietary compliance is fairly good usually adhering to recommendations. The patient states that there is no recent angina or dyspnea, weight has decreased (down 3 pounds) and headaches are rarely noted. Note for Multiple chronic conditions follow-up: Complains of frequent sweats and low back and hip pain. reviewed by [facility] 01-01-2022 Unclassified (20 sources) Follow Up for Multiple Chronic Conditions - The patient is here for follow-up of hyperlipidemia and hypertension. The patient always takes the prescribed medications. No side effects noted (needs refills). The patient engages in regular exercise program 3-5 times per week (walks daily). The patient's out of office blood pressure checks occur occasionally (Last home BP 125/86) and dietary compliance is fairly good usually adhering to recommendations. The patient states that there is no recent angina or dyspnea, weight has decreased (down 4 pounds) and headaches are rarely noted. Note for Multiple chronic conditions follow-up: reviewed by [facility] 03-06-2021 Unclassified (20 sources) Follow Up for Multiple Chronic Conditions - The patient is here for follow-up of hyperlipidemia and hypertension. The patient usually takes the prescribed medications. No side effects noted (will sometimes forget on weekends, needs refills today). The patient engages in regular exercise program 3-5 times per week (walks about 1 hour daily). The patient's out of office blood pressure checks occur rarely and dietary compliance is fairly good usually adhering to recommendations. The patient states that there is no recent angina or dyspnea, there are no vision changes or weakness, weight has decreased (2lbs) and they do not have headaches. Note for Multiple chronic conditions follow-up: States that he snores and would like to discuss treatment options. Does wear a nose strip that helps some. reviewed by [facility] 02-22-2020 Unclassified (20 sources) Follow Up for Multiple Chronic Conditions - The patient is here for follow-up of hyperlipidemia and hypertension. The patient usually takes the prescribed medications. No side effects noted (Has been out of Atorvastatin for 1 week. Needs refills). The patient engages in regular exercise program 3-5 times per week (walks). The patient's out of office blood pressure checks occur rarely and dietary compliance is fairly good usually adhering to recommendations. The patient states that there is no recent angina or dyspnea, weight has decreased (down 2 pounds) and headaches have been noticed occasionally. 02-11-2019 Unclassified (20 sources) Follow Up for Multiple Chronic Conditions - The patient is here for follow-up of hyperlipidemia and hypertension. The patient always takes the prescribed medications. No side effects noted. The patient has an active lifestyle but no regular exercise program. The patient's dietary compliance is good with close adherance to recommendations (Is currently on Paleo diet.). The patient states that there is no recent angina or dyspnea, there are no vision changes or weakness, pain is worse (Pt is having a lot of left shoulder pain. Using Naproxen 500 mg bid for this. States that he has a knot on top of shoulder today. Tender to touch.), weight is unchanged and they do not have headaches. The patient states that the disease has no overall impact. Note for Multiple chronic conditions follow-up: Labs done and ready to review. Has not been checking out of office Bp's. Declines flu vaccine. reviewed by [facility] 07-15-2017 Unclassified (20 sources) [facility] Routine Follow up - The patient is here for follow-up of hypertension and hyperlipidemia. The patient always takes the prescribed medications. No side effects noted. (does not always take Atorvastatin) The patient has an active lifestyle but no regular program. The patient's out of office blood pressure checks occur rarely and dietary compliance is fairly good usually adhering to recommendations. The patient states that there is no recent angina or dyspnea, there are no vision changes or weakness and they do not have headaches. Note for Routine chronic follow-up: Patient did quit smoking two weeks ago. 01-02-2017 Unclassified (20 sources) Follow Up for Multiple Chronic Conditions - The patient is here for follow-up of hypertension and hyperlipidemia. The patient always takes the prescribed medications. No side effects noted (However he was having some muscle aches when he first started on Atovastatin but that has subsided. Seems to be tolerating them better now. He has noticed that he feels tired and washout and wonders if BP is running too low. In office today it was 114/75. Says he noramlly BP uis 130/80-85.). The patient has an active lifestyle but no regular exercise program. The patient's out of office blood pressure checks occur occasionally (Does not have any BP reading with him today.) and dietary compliance is fairly good usually adhering to recommendations. The patient states that there is no recent angina or dyspnea, there are no vision changes or weakness, weight has increased (up about 1# from last visit.) and they do not have headaches. The patient states that the disease has no overall impact. Note for Multiple chronic conditions follow-up: Has not been fasting today. Declines flu vaccine today. reviewed by [facility] 08-09-2015 Unclassified (20 sources) [ADDITIONAL REASON] Cold Symptoms - Symptoms include nasal congestion (and has drainaige down back of throat.), scratchy throat, dry cough (but pt is a smoker.) and general malaise, but do not include wheezing, fever or headache. The onset was gradual 2 week(s) ago. The patient describes this as mild and worsening. Current treatment includes non-prescription cold medication (Nyquil at night.). Risk factors include smoking. Note for Upper respiratory infection: no one else at home sick. reviewed by [facility] 08-09-2015 Unclassified (20 sources) Follow up for multiple chronic conditions - The patient is here for follow-up of hypertension, hyperlipidemia and other condition(s) (reactive airway disease,ED.). The patient always takes the prescribed medications. No side effects noted. The patient engages in regular exercise program 1-3 times per week. The patient's out of office blood pressure checks occur frequently (138/80) and dietary compliance is fairly good usually adhering to recommendations. The patient states that breathing effort is stable, there is no recent angina or dyspnea, there are no vision changes or weakness, pain is worse (shoulder) and they do not have headaches. Note for Multiple chronic conditions follow-up: reviewed by [facility] 01-04-2015 Unclassified (20 sources) Follow Up for Multiple Chronic Conditions - The patient is here for follow-up of hypertension and hyperlipidemia. The patient always takes the prescribed medications. No side effects noted (Diet controlled for cholesterol.). The patient has an active lifestyle but no regular exercise program (and riding bike daily.). The patient's out of office blood pressure checks occur occasionally (Average at home BP is about 128/84-85.) and dietary compliance is fairly good usually adhering to recommendations. The patient states that there is no recent angina or dyspnea, there are no vision changes or weakness, weight has increased (up 2# from appt in Sep.) and they do not have headaches. Note for Multiple chronic conditions follow-up: Pt has eaten today. Declines flu vaccine. reviewed by [facility] 04-30-2014 Unclassified (20 sources) [ADDITIONAL REASON] Shoulder pain - The onset of the shoulder pain has been sudden following an incident not at work and has been occurring in an intermittent pattern for 25 years (Pt fell and hurt right shoulder but he never got it checked out. It never bothered him till about 2 years.). The course has been gradually worsening. The pain is characterized as a moderate to severe dull aching. The pain is described as being located in the right shoulder. Relieving factors include medication (Takes 2 Ibuprofen daily.). Note for Shoulder pain: Has pain whenever he moves arm backwards. He thinks he may have had it looked at back in but does not remember. Nothing was done about it. 04-30-2014 Unclassified (20 sources) Follow Up for Multiple Chronic Conditions - The patient is here for follow-up of hypertension. The patient always takes the prescribed medications. No side effects noted (forgets sometimes). The patient has an active lifestyle but no regular exercise program. The patient's out of office blood pressure checks occur frequently. The patient states that the disease has no overall impact. Note for Multiple chronic conditions follow-up: reviewed by [facility] 09-25-2013 Unclassified (20 sources) follow up pneumonia - Pt saw [facility] on 05-14-13 and was treated for pneumonia with augmentin. Pt still has dry cough that is worse at night, fatigue, no fever. Pt is still using his inhaler more at night than during the day (does help). Has used nyquil to help him sleep but cough still keeps him up at night. Still has some PND and sinus congestion. No h/o asthma or chronic breathing issues. 05-29-2013 Unclassified (20 sources) Follow Up for Multiple Chronic Conditions - The patient is here for follow-up of hypertension. The patient usually takes the prescribed medications. No side effects noted (Needs refills.). The patient engages in regular exercise program 3-5 times per week (Walks.). The patient's out of office blood pressure checks occur occasionally (125/75 is an average home reading.) and dietary compliance is fairly good usually adhering to recommendations. The patient states that weight has decreased (Down 7 pounds.) and they do not have headaches. Note for Multiple chronic conditions follow-up: reviewed by [facility] 04-01-2013 Unclassified (20 sources) Follow Up for Multiple Chronic Conditions - The patient is here for follow-up of hypertension. The patient always takes the prescribed medications. No side effects noted (Needs refills.). The patient has an active lifestyle but no regular exercise program. The patient's out of office blood pressure checks occur occasionally (120/80 is an average reading.) and dietary compliance is fairly good usually adhering to recommendations. The patient states that weight has increased (Up 9 pounds.) and they do not have headaches. Note for Multiple chronic conditions follow-up: reviewed by [facility] 09-16-2012 Unclassified (20 sources) Follow Up for Multiple Chronic Conditions - The patient is here for follow-up of hypertension. The patient usually takes the prescribed medications. No side effects noted (Needs refills. A couple times per month he won't take medications due to fatigue.). The patient has an active lifestyle but no regular exercise program. The patient's out of office blood pressure checks occur occasionally (130/80 is an average home reading.). The patient states that weight has increased (Up 3 pounds.) and they do not have headaches. Note for Multiple chronic conditions follow-up: Is fasting today. reviewed by [facility] 03-14-2012 Unclassified (20 sources) Follow Up for Multiple Chronic Conditions - The patient is here for follow-up of hypertension. The patient always takes the prescribed medications. No side effects noted. The patient has an active lifestyle but no regular exercise program. The patient's out of office blood pressure checks occur frequently (Average is about 133/75-78.). The patient states that there is no recent angina or dyspnea, there are no vision changes or weakness, weight is unchanged and they do not have headaches. Note for Follow Up for Multiple Chronic Conditions: Pt states is doing fairly well. No concerns except has been fighting a head cold for about a month. Is getting better but can feel sinuses draining pretty well. Is coughing some and coughing up drainage. No s/t, fever or anything- just can't shake it.Also wondering about getting ears flushed. Tried cleaning them out a home but unsuccessful.ALso has been fasting today for labs. reviewed by [facility] 10-12-2011 Unclassified (20 sources) Follow Up for Multiple Chronic Conditions - The patient is here for follow-up of hypertension. The patient always takes the prescribed medications. No side effects noted. The patient has an active lifestyle but no regular exercise program. The patient's out of office blood pressure checks occur frequently (Average Bp 135/80. Says at times he can feel it runs much lower and will get sluggish. Feels sluggish today and Bp 124/77. ). The patient states that there is no recent angina or dyspnea and they do not have headaches. Note for Follow Up for Multiple Chronic Conditions: Under a lot of stress at work otherwise doing ok. reviewed by [facility] 04-13-2011 Unclassified (20 sources) Follow up for multiple chronic conditions - The patient is here for follow-up of hypertension. The patient always takes the prescribed medications. No side effects noted. The patient has an active lifestyle but no regular program. The patient's out of office blood pressure checks occur occasionally. 08-08-2010 Unclassified (9 sources) Cold Symptoms - Symptoms include nasal congestion (and has drainaige down back of throat.), scratchy throat, dry cough (but pt is a smoker.) and general malaise, but do not include wheezing, fever or headache. The onset was gradual 2 week(s) ago. The patient describes this as mild and worsening. Current treatment includes non-prescription cold medication (Nyquil at night.). Risk factors include smoking. Note for Upper respiratory infection: no one else at home sick. reviewed by [facility] 08-09-2015 Unclassified (9 sources) [ADDITIONAL REASON] Follow Up for Multiple Chronic Conditions - The patient is here for follow-up of hypertension and hyperlipidemia. The patient always takes the prescribed medications. No side effects noted (However he was having some muscle aches when he first started on Atovastatin but that has subsided. Seems to be tolerating them better now. He has noticed that he feels tired and washout and wonders if BP is running too low. In office today it was 114/75. Says he noramlly BP uis 130/80-85.). The patient has an active lifestyle but no regular exercise program. The patient's out of office blood pressure checks occur occasionally (Does not have any BP reading with him today.) and dietary compliance is fairly good usually adhering to recommendations. The patient states that there is no recent angina or dyspnea, there are no vision changes or weakness, weight has increased (up about 1# from last visit.) and they do not have headaches. The patient states that the disease has no overall impact. Note for Multiple chronic conditions follow-up: Has not been fasting today. Declines flu vaccine today. reviewed by [facility] 08-09-2015 Unclassified (9 sources) Shoulder pain - The onset of the shoulder pain has been sudden following an incident not at work and has been occurring in an intermittent pattern for 25 years (Pt fell and hurt right shoulder but he never got it checked out. It never bothered him till about 2 years.). The course has been gradually worsening. The pain is characterized as a moderate to severe dull aching. The pain is described as being located in the right shoulder. Relieving factors include medication (Takes 2 Ibuprofen daily.). Note for Shoulder pain: Has pain whenever he moves arm backwards. He thinks he may have had it looked at back in but does not remember. Nothing was done about it. 04-30-2014 Unclassified (9 sources) [ADDITIONAL REASON] Follow Up for Multiple Chronic Conditions - The patient is here for follow-up of hypertension and hyperlipidemia. The patient always takes the prescribed medications. No side effects noted (Diet controlled for cholesterol.). The patient has an active lifestyle but no regular exercise program (and riding bike daily.). The patient's out of office blood pressure checks occur occasionally (Average at home BP is about 128/84-85.) and dietary compliance is fairly good usually adhering to recommendations. The patient states that there is no recent angina or dyspnea, there are no vision changes or weakness, weight has increased (up 2# from appt in ) and they do not have headaches. Note for Multiple chronic conditions follow-up: Pt has eaten today. Declines flu vaccine. reviewed by [facility] 04-30-2014 Unclassified (20 sources) Follow up for multiple chronic conditions - The patient is here for follow-up of hyperlipidemia and hypertension. The patient always takes the prescribed medications. No side effects noted. The patient has an active lifestyle but no regular exercise program. The patient states that the disease has no overall impact. Note for Multiple chronic conditions follow-up: reviewed by [facility] 01-02-2024 Unclassified (1 source) Follow up for multiple chronic conditions - The patient is here for follow-up of hyperlipidemia and hypertension. The patient always takes the prescribed medications. No side effects noted (Patient has not taken his lisinopril yet today). The patient has an active lifestyle but no regular exercise program. The patient's out of office blood pressure checks occur rarely (Not checking BP at home) and dietary compliance is fairly good usually adhering to recommendations. The patient states that there is no recent angina or dyspnea, weight has increased (up 4 lb) and they do not have headaches. Note for Multiple chronic conditions follow-up: reviewed by [facility] 01-28-2025 Past or Other Problems Problem Classification Problem Date Documented Da te Episodic/Chronic Unclassified (20 sources) Well adult male - The patient feels well with no complaints. The patient has a balanced diet. The patient exercises 3 - 4 times per week. The patient sleeps 8 hours per night. Note for Well adult male: reviewed by [facility] 07-17-2023 Unclassified (20 sources) Cold Symptoms - Symptoms include nasal congestion, runny nose, ear fullness, scratchy throat (due to PND), dry cough and general malaise. The onset was gradual 18 day(s) ago. The symptoms occur constantly. The patient describes this as mild and improving. Current treatment includes non-prescription cold medication (nyquil) and humidifier use. Risk factors do not include smoking. Medical history includes seasonal allergies. Note for Upper respiratory infection: reviewed by [facility] 06-26-2023 Unclassified (20 sources) Pre-operative clearance - Surgical procedure(s) planned: other (right hip surgery). Date of procedure: (05/04/2023) Surgeon: (Dr Vincent) and Location of procedure: ([facility]) There have been no problems with general anesthesia or blood/blood products. Note for Pre-operative clearance: reviewed by [facility] 04-11-2023 Unclassified (20 sources) Well adult male - The patient feels well with no complaints and is sleeping well. The patient has a balanced diet. The patient exercises daily. The patient sleeps 8 hours per night. Note for Well adult male: reviewed by [facility] 2022 Unclassified (20 sources) Pre-operative clearance - Surgical procedure(s) planned: other (left hip replacement). Date of procedure: (05/10/22) Surgeon: (Dr. Angelito Vincent) and Location of procedure: ([facility]) There have been no problems with general anesthesia or blood/blood products. 05-02-2022 Unclassified (20 sources) Well Adult, male - The patient feels well with no complaints, has good energy level and is sleeping well. The patient has a balanced diet and takes supplemental vitamins. The patient exercises 3 - 4 times per week (walks). The patient sleeps 8 hours per night. Note for Well Adult, male: reviewed by [facility] 09-05-2020 Unclassified (20 sources) Well Adult, male - The patient feels well with no complaints (complains of shoulder pain), has decreased energy level and is sleeping well. The patient has a balanced diet and takes no supplemental vitamins & iron. The patient exercises 3 - 4 times per week (yoga and walks). The patient sleeps 8 hours per night. Note for Well Adult, male: reviewed by [facility] 08-24-2019 Unclassified (20 sources) Back pain - The onset of the back pain has been acute and has been occurring in a persistent pattern for 5 days. The course has been increasing. The pain is characterized as a dull ache (back spasms). The pain is located in the lower back. The pain is precipitated by heavy weight lifting. The symptoms are relieved by lying down. Note for Back pain: He was moving a refridgerator.he had a work injury to the left knee and has been getting injection 03-18-2019 Unclassified (20 sources) Well adult male - The patient feels well with no complaints, has decreased energy level and is sleeping poorly (states that he snores, wears a nose strip). The patient has a balanced diet and takes supplemental vitamins. The patient exercises daily (walking 1 mile daily, during the warmer months will go bicycling 3x for 5-6 miles). The patient sleeps 7 hours per night. Note for Well adult male: Last lipid and CMP 06/20/2017.Is fasting this morning. reviewed by [facility] 07-25-2018 Unclassified (20 sources) Finger Pain - The pain is located in the of the left middle finger. This occurred 1 day(s) ago (fell yesterday). Symptoms include pain, swelling and finger bruising. The patient is right hand dominant. Note for Finger pain: It was deformed. He popped it nidhi into place. He fell back w hand behind him. 04-15-2018 Unclassified (20 sources) Follow Up for Multiple Chronic Conditions - The patient is here for follow-up of hyperlipidemia and hypertension. The patient always takes the prescribed medications. No side effects noted (needs a refill today on atorvastatin). The patient has an active lifestyle but no regular exercise program. The patient's out of office blood pressure checks occur rarely (BP machine stopped working, has not checked recently) and dietary compliance is good with close adherance to recommendations (trying to follow paleo diet). The patient states that breathing effort is stable, there is no recent angina or dyspnea, there are no vision changes or weakness, weight has decreased (1# since [facility]) and they do not have headaches. Note for Multiple chronic conditions follow-up: reviewed by [facility] 01-17-2018 Unclassified (20 sources) Cold Symptoms - Symptoms include nasal congestion, runny nose, sore throat, dry cough (hard cough, chest congestion), wheezing (while lying down will have wheezing. Some shortness of breath.), fever, chills and general malaise (aches), but do not include ear pain, ear fullness or headache. The onset was sudden 3 day(s) ago. The patient describes this as moderate in severity and worsening. Current treatment includes non-prescription cold medication and acetaminophen. Risk factors include smoking. The patient has been exposed to an individual with an upper respiratory infection (coworker). Medical history includes seasonal allergies (does take an allergy pill in spring and fall time), but patient denies history of asthma or tonsillectomy. 10-08-2017 Unclassified (20 sources) Cold Symptoms - Symptoms include nasal congestion, runny nose, sore throat (drainage) and productive cough (just started lastnight), but do not include ear pain, fever or headache. The onset was gradual 1 week(s) ago. The symptoms occur constantly. The patient describes this as moderate in severity and unchanged. Current treatment includes non-prescription cold medication and allergy medications. Medical history includes seasonal allergies and recurrent sinusitis, but patient denies history of recurrent strep pharyngitis, asthma, tonsillectomy or recurrent ear infections. Note for Upper respiratory infection: Reviewed by [facility]. 12-04-2016 Unclassified (20 sources) Knee pain - The onset of the knee pain has been sudden following no specific incident and has been occurring in a persistent pattern for 2 days. The course has been worsening. The knee pain is moderate to severe in the right knee. The knee pain is characterized as a sharp stabbing. The knee pain is described as being located in the entire knee. The knee pain is aggravated by physical activity, work duties, twisting, squatting, kneeling, climbing, stairs, prolonged standing and prolonged rest. There were no relieving factors. The symptoms have been associated with joint swelling, instability, painful ROM, decreased ROM, difficulty arising from chair, difficulty going up and down stairs and difficulty with sports activities. There were no previous diagnostic tests. There were no previous evaluations. There has been no previous physical therapy. There has been no previous surgeries. There is no use of assistive devices. There has been no previous medications. 07-16-2016 Unclassified (20 sources) Cold Symptoms - Symptoms include sneezing, nasal congestion, runny nose, purulent discharge (greenish discharge.), scratchy throat, productive cough (expectorating a whitish phlegm. PO 99%.), fever (but never actually took it at home. Just would get chills on/off. No temerature in office today.), chills, general malaise and headache, but do not include ear pain, wheezing or facial pain. The onset was gradual 1 week(s) ago. The patient describes this as severe and worsening. Current treatment includes non-prescription cold medication (and has used VICKS on chest past 2 nights and using Nyquil at night but nothing seems to really help.). Risk factors include smoking. Note for Upper respiratory infection: No one else at home sick. reviewed by [facility] 06-11-2016 Unclassified (20 sources) Rash - The onset of the rash has been acute and has been occurring in a persistent pattern for 4 days. The course has been decreasing. The rash is characterized as red and raised above the skin (water filled). The rash was first seen on the neck. It spread to the back. There has been associated itching. There has been associated itching. Note for Rash: Patient complains of his right eye watery excessively right after he noted the rash starting. That, since, has resolved. 04-13-2014 Unclassified (20 sources) Cold Symptoms - Symptoms include nasal congestion, runny nose (mostly just PND), ear fullness, productive cough (can't get phlegm to come up all the way), chills (nightsweats; hasn't checked his temperature) and facial pain (cheeks), but do not include sore throat or headache. The onset was sudden 1 week(s) ago. The symptoms occur constantly. The patient describes this as moderate in severity and unchanged. Current treatment includes non-prescription cold medication and NSAIDs (2 this am). The patient has not been exposed to an individual with similar symptoms. Medical history includes seasonal allergies, but patient denies history of recurrent sinusitis, recurrent strep pharyngitis, asthma, tonsillectomy or recurrent ear infections. Note for Upper respiratory infection: No energy. Not eating as much. Used angel's last night. + hoarseness. 05-14-2013 Unclassified (20 sources) Blood Pressure - Pt here because for years he thought he probably had high blood pressure but 2 weeks ago was in and saw [facility] for ear infection and pressure then was 155/100. Has been monitoring it and states that it has been running about 170's over 104. Is having headaches with this as well. Pt has been worrying about it and felt needed to be checked. 07-07-2010 Unclassified (20 sources) Cold Symptoms - Symptoms include nasal congestion, ear pain (left sided), sore throat (thick on left side, notes some PND), fever (sweat last night), general malaise and facial pain (around left eye). The onset was 4 day(s) ago. Current treatment includes NSAIDs. The patient has not been exposed to an individual with similar symptoms (but did spend some time in the cool night air). Note for Cold Symptoms: has new granddaughter that he will meet this weekend and he wants to be safe meeting her and not being contagious 06-08-2010 Unclassified (20 sources) Allergic rhinitis - The onset of the allergic rhinitis has been gradual and has been occurring in a persistent pattern for 9 days. The course has been constant. The allergic rhinitis is described as moderate. Associated symptoms include itchy ears, itchy eyes (matted shut this am), itchy nose, runny nose, sore throat (PND) and watery eyes. The symptoms are aggravated by exposure to pollens and spring season. The symptoms are not relieved by any method. Note for Allergic rhinitis: patient mowed last night and it made symptoms much worsetired and also PNDpatient has used cold medicine, pt took a 24 hr allergy pill yesterday reviewed by [facility] 04-02-2024 Unclassified (16 sources) Well adult male - The patient feels well with no complaints, has good energy level and is sleeping poorly (patient does sleep good sometimes, but has trouble staying asleep some nights). The patient has a balanced diet. The patient exercises none (He normally walks when the weather permits). The patient sleeps 7 (8) hours per night. Note for Well adult male: reviewed by [facility] 07-23-2024 Unclassified (13 sources) Shoulder pain - The onset of the shoulder pain has been gradual following an incident not at work (he was pulling the wood splitter and he felt something after that. Then yesterday while cutting and loading the firewood it started to hurt more) and has been occurring in an intermittent pattern for 1 week. The course has been recurrent. The pain is characterized as a moderate sharp stabbing. The pain is described as being located in the right shoulder and is aggravated by physical activity, overhead activity and lifting. Relieving factors include nothing (he tried his THC cream but it did not help. Tylenol and ibuprofen did not help much either). The symptoms have been associated with muscle weakness, painful ROM, decreased ROM, popping/crepitus and difficulty with overhead activities. Note for Shoulder pain: patient had trouble sleeping last night due to the pain reviewed by [facility] 09-17-2024 Unclassified (11 sources) Syncope - Presyncopal symptoms include dizziness. There is associated vomiting. The patient has been experiencing blurred vision (looks weird). Note for Syncope: Pt passed out Saturday. Had one other episode a few weeks ago, where room went white. Pt states has had several falls. reviewed by [facility] 11-12-2024 Results Test Name Value Interpretation Reference Range Facility Anion gap in Serum or Plasma Ordered By: Clementina Peñaloza on 12-24-2024 Anion gap [Moles/Vol] 12 mmol/L - [facility] BUN/creatinine ratioOrdered By: Clementina Peñaloza on 12-24-2024 Urea nitrogen/Creatinine [Mass ratio] 13.8 mg/mg - [facility] Bilirubin, totalOrdered By: Clementina Peñaloza on 12-24-2024 Bilirubin [Mass/Vol] 1.12 mg/dL 0.00-1.30 [facility] CBC-Complete Blood Cnt No Di ffon 12-24-2024 Erythrocyte distribution width (RBC) [Ratio] 13.6 % Normal 11.6-14.6 [facility] Comment on above: Performed By: #### L 100.0500, L500.4050, L501.5200, L501.9520 #### [facility] [address] [place], [address] Hematocrit (Bld) [Volume fraction] 45.6 % Normal 40-54 [facility] Comment on above: Performed By: #### L 100.0500, L500.4050, L501.5200, L501.9520 #### [facility] [address] [place], [address] Hemoglobin (Bld) [Mass/Vol] 15.9 g/dL Normal 13.0-16.5 [facility] Comment on above: Performed By: #### L 100.0500, L500.4050, L501.5200, L501.9520 #### [facility] [address] [place], [address] MCH (RBC) [Entitic mass] 31.7 pg Normal 27.0-32.0 [facility] Comment on above: Performed By: #### L 100.0500, L500.4050, L501.5200, L501.9520 #### [facility] [address] [place], [address] MCHC (RBC) [Mass/Vol] 34.9 g/dL Normal 32-36 [facility] Comment on above: Performed By: #### L 100.0500, L500.4050, L501.5200, L501.9520 #### [facility] [address] [place], [address] MCV (RBC) [Entitic vol] 91.0 fL Normal 80-94 [facility] Comment on above: Performed By: #### L 100.0500, L500.4050, L501.5200, L501.9520 #### [facility] [address] [place], [address] Platelet mean volume (Bld) [Entitic vol] 9.5 fL Normal 6.2-12.0 [facility] Comment on above: Performed By: #### L 100.0500, L500.4050, L501.5200, L501.9520 #### [facility] [address] [place], [address] Platelets (Bld) [#/Vol] 259 10*3/uL Normal 150-450 [facility] Comment on above: Performed By: #### L 100.0500, L500.4050, L501.5200, L501.9520 #### [facility] [address] [place], [address] RBC (Bld) [#/Vol] 5.01 10*6/uL Normal 4.6-6.2 [facility] Comment on above: Performed By: #### L 100.0500, L500.4050, L501.5200, L501.9520 #### [facility] [address] [place], [address] RDW SD 45.8 fl High 35.1-43.9 [facility] Comment on above: Performed By: #### L 100.0500, L500.4050, L501.5200, L501.9520 #### [facility] [address] [place], [address] WBC (Bld) [#/Vol] 5.5 10*3/uL Normal 4.4-11.0 [facility] Comment on above: Performed By: #### L 100.0500, L500.4050, L501.5200, L501.9520 #### [facility] [address] [place], [address] Carbon dioxide, total [Moles /volume] in Central venous bloodOrdered By: Clementina Peñaloza on 12-24-2024 CO2 [Moles/Vol] 21.3 mmol/L 21.0-32.0 [facility] Cardiology Visit Reporton Cardiology Visit Report [facility] [address] [place] [address] OFFICE VISIT Date of Service: 12/24/24 MR#: [id number] Acct: [id number] Name: MARY PHAN Rep #: [id number] : 1965 Provider: Dr. Clementina Peñaloza MD Age/Sex: 59/M Location[place] [facility] [place] Status: Signed HPI HPI History of Present Illness Details: This gentleman has a past medical history significant for dyslipidemia and hypertension. He has been referred to us for a syncopal episode that he has had couple of weeks ago. According to the patient, he was eating his dinner when he felt nauseous and lightheaded. According to him, he felt as if he was going to blackout. At that point, he stood up. As soon as he stood up, he passed out and hit the ground. He woke up immediately after hitting the ground. He had an episode of vomiting soon thereafter. Denies any chest pains or shortness of breath either prior to or after the episode. No headaches. The episode was witnessed by his . No seizure activity noted. No bladder or bowel incontinence. No tongue bite. According to the patient, he has had a somewhat similar episode couple of months ago. That also occurred when he was having his breakfast. At that time however, he did not pass out but felt like he was going to pass out. He did have an episode of vomiting then as well. Patient denies any chest pains or shortness of breath either at rest or with exertion. No orthopnea. No PND. No ankle edema. No palpitations. His PCP ordered a 24-hour Holter monitor for the patient. It was unremarkable. Patient drinks about 5-6 bottles of beer every day. Per him, he was working outside in the heat the day his syncopal episode occurred and had about 5 bottles of beer throughout the day. Intake Vital Signs 05/09/23 06:37 12/24/24 08:27 Height 5 ft 11 in 5 ft 11 in Weight: 193 lb BMI 26.9 BP 122/87 H Blood Pressure Location Lt brachial Position Sitting Respiration 18 Pulse 76 Pulse Source NIBP Comment Standing BP: 133/88 HR: 88 Intake Visit Reasons: Syncope Caption Writer Required: No Accompanied by: Self Is patient in pain?: No Allergies Environmental Allergies: Uncoded (seasonal) Allergy (Mild, Verified 12/24/24 08:58) congestion Medications ???Medication ???Instructions ???Recorded ???Confirmed ???Type lisinopril 5 mg tablet 5 mg PO DAILY 04/27/22 12/24/24 Hi story atorvastatin 10 mg tablet 10 mg PO QHS 12/17/24 12/24/24 His tory Have you fallen in the past year?: Yes (no major injuries; swollen L-Hand) [facility] Medical History (Updated 12/24/24 @ 09:[address] Clementina Peñaloza MD) Multiple falls Syncope Hyperlipidemia Arthritis Wears glasses Alcohol use Back pain Bleeding hemorrhoids Former smoker Hypertension Surgical History (Updated 12/24/24 @ 09:00 by Jamar Rivas RN) History of right hip replacement History of left hip replacement History of inguinal hernia repair Social History Smoking Status: Former smoker how long ago did patient quit smokin alcohol intake: current alcohol intake frequency: a few times a month ROS Const Const: Positive for fatigue (age related per pt); Negative for weakness, headache(s) or weight gain ENT ENT: Positive for dizziness; Negative for headache(s), Nosebleed/epistaxis or balance problems Cardio Chest Pain: No Palpitations: No Edema: Left (hand s/p syncope and fall) Muscle aches with walking: None Resp Respiratory: Positive for SOB with activity (with overexertion); Negative for SOB at rest or SOB orthopnea SOB lying down GI GI: Positive for nausea and vomiting (following syncope episodes); Negative heartburn Musc Musc: Positive for muscle aches/ myalgia and joint pain; Negative for muscle weakness or balance problems Neuro Neuro: Positive for dizziness, lightheadedness, near syncope and syncope; Negative for headache(s) or weakness Endo Endo: Positive for fatigue (age related per pt) Cardiology Exam Const Appearance: comfortable and no acute distress Nutritional Appearance: well nourished Neck Neck: no JVD Carotids: Negative bruit Chest Auscultation: Bilateral: Clear to Auscultation Cardio Rate: regular rate Rhythm: regular rhythm Heart sounds: S1 normal and S2 normal Neuro General: patient alert, patient awake and patient oriented x3 Extremities Lower Extremity Edema: None: Bilateral Supplemental Info Supplemental Information 24 hour Monitor 11/18/2024 Primary rhythm was Sinus Rhythm. AVG HR 73 bpm. MIN HR 48 bpm on Day 2 04:48:22 am. MAX HR 118 bpm on Day 1 08:13:37 pm. PVC's: [place] was < 0.01%. 6 total PVC's. 4 disparate morphologies. Assessment and Plan Assessment and Plan (1) Syncope: Status: Acute P (more content not included)... Normal [facility] Chloride assayOrdered By: Trent Peñaloza on 12-24-2024 Chloride [Moles/Vol] 103 mmol/L 98-108 [facility] Comprehensive Metabolic Prof ilon 12-24-2024 Albumin [Mass/Vol] 4.8 g/dL Normal 3.4-4.8 [facility] Comment on above: Performed By: #### L 100.0500, L500.4050, L501.5200, L501.9520 #### [facility] [address] [place], [address] Albumin/Globulin [Mass ratio] 1.4 {ratio} Normal 0.9-2.4 [facility] Comment on above: Performed By: #### L 100.0500, L500.4050, L501.5200, L501.9520 #### [facility] [address] [place], [address] ALK PHOS 77 U/L Normal 40-129 [facility] Comment on above: Performed By: #### L 100.0500, L500.4050, L501.5200, L501.9520 #### [facility] [address] [place], [address] ALT [Catalytic activity/Vol] 23 U/L Normal <=46 [facility] Comment on above: Performed By: #### L 100.0500, L500.4050, L501.5200, L501.9520 #### [facility] [address] [place], [address] AST [Catalytic activity/Vol] 64 U/L High <=37 [facility] Comment on above: Performed By: #### L 100.0500, L500.4050, L501.5200, L501.9520 #### [facility] [address] [place], [address] Bilirubin [Mass/Vol] 1.12 mg/dL Normal 0.00-1.30 [facility] Comment on above: Performed By: #### L 100.0500, L500.4050, L501.5200, L501.9520 #### [facility] [address] [place], [address] BUN/CRE 13.8 RATIO Normal 10-20 [facility] Comment on above: Performed By: #### L 100.0500, L500.4050, L501.5200, L501.9520 #### [facility] [address] [place], [address] Calcium [Mass/Vol] 10.1 mg/dL Normal 7.6-11.0 [facility] Comment on above: Performed By: #### L 100.0500, L500.4050, L501.5200, L501.9520 #### [facility] [address] [place], [address] Chloride [Moles/Vol] 103 mmol/L Normal 98-108 [facility] Comment on above: Performed By: #### L 100.0500, L500.4050, L501.5200, L501.9520 #### [facility] [address] [place], [address] CO2 [Moles/Vol] 21.3 mmol/L Normal 21.0-32.0 [facility] Comment on above: Performed By: #### L 100.0500, L500.4050, L501.5200, L501.9520 #### [facility] [address] [place], [address] Creatinine [Mass/Vol] 0.97 mg/dL Normal 0.70-1.20 [facility] Comment on above: Performed By: #### L 100.0500, L500.4050, L501.5200, L501.9520 #### [facility] [address] [place], [address] GAP 12 Normal 5-15 [facility] Comment on above: Performed By: #### L 100.0500, L500.4050, L501.5200, L501.9520 #### [facility] [address] [place], [address] GFR/1.73 sq M.predicted among non-blacks MDRD (S/P/Bld) [Vol rate/Area] 89 mL/min/{1.73_m2} Normal >60 [facility] Comment on above: Result Comment: mL/m in/1.73m2 CKD-EPI Creatinine Equation (2020) Performed By: #### L 100.0500, L500.4050, L501.5200, L501.9520 #### [facility] [address] [place], [address] Globulin (S) [Mass/Vol] 3.5 g/dL Normal 2.2-4.[address] [facility] Comment on above: Performed By: #### L 100.0500, L500.4050, L501.5200, L501.9520 #### [facility] [address] [place], [address] Glucose [Mass/Vol] 102 mg/dL High 70-99 [facility] Comment on above: Performed By: #### L 100.0500, L500.4050, L501.5200, L501.9520 #### [facility] [address] [place], [address] Potassium [Moles/Vol] 4.5 mmol/L Normal 3.3-5.1 [facility] Comment on above: Performed By: #### L 100.0500, L500.4050, L501.5200, L501.9520 #### [facility] [address] [place], [address] Sodium [Moles/Vol] 136 mmol/L Normal 133-145 [facility] Comment on above: Performed By: #### L 100.0500, L500.4050, L501.5200, L501.9520 #### [facility] [address] [place], [address] T PROT 8.2 g/dL Normal 5.9-8.4 [facility] Comment on above: Performed By: #### L 100.0500, L500.4050, L501.5200, L501.9520 #### [facility] [address] [place], [address] Urea nitrogen [Mass/Vol] 13 mg/dL Normal 4-19 [facility] Comment on above: Performed By: #### L 100.0500, L500.4050, L501.5200, L501.9520 #### [facility] [address] [place], [address] Erythrocyte distribution wid th ratioOrdered By: Clementina Peñaloza on 12-24-2024 Erythrocyte distribution width (RBC) [Ratio] 13.6 % 11.6-14.6 [facility] Erythrocyte distribution wid th standard deviationOrdered By: Clementina Peñaloza on 12-24-2024 Erythrocyte distribution width (RBC) [Ratio] 45.8 fl High 35.1-43.9 [facility] Glomerular filtration rate ( GFR) estimation/1.73 sq m using serum, plasma, or whole bOrdered By: Clementina Peñaloza on 12-24-2024 GFR/1.73 sq M.predicted among non-blacks MDRD (S/P/Bld) [Vol rate/Area] 89 mL/min/{1.73_m2} >60 [facility] Comment on above: mL/min/1.73m2 CKD-EP I Creatinine Equation (2020) Hematocrit Auto (Bld) [Volum e fraction]Ordered By: Clementina Peñaloza on 12-24-2024 Hematocrit (Bld) [Volume fraction] 45.6 % 40-54 [facility] Hemoglobin measurementOrdere d By: Clementina Peñaloza on 12-24-2024 Hemoglobin (Bld) [Mass/Vol] 15.9 g/dL 13.0-16.5 [facility] - Chemistry and C hemistry - challengeOrdered By: Clementina Peñaloza on 12-24-2024 AST [Catalytic activity/Vol] 64 U/L High <38 [facility] MCV (mean corpuscular volume ) determinationOrdered By: Clementina Peñaloza on 12-24-2024 MCV (RBC) [Entitic vol] 91.0 fL 80-94 [facility] Magnesiumon 12-24-2024 Magnesium [Mass/Vol] 2.3 mg/dL High 1.5-2.2 [facility] Comment on above: Performed By: #### L 100.0500, L500.4050, L501.5200, L501.9520 #### [facility] [address] [facility] [place], [place], [address] Magnesium measurement (mass/ volume)Ordered By: Clementina Peñaloza on 12-24-2024 Magnesium (Unsp spec) [Mass/Vol] 2.3 mg/dL High 1.5-2.2 [facility] Mean corpuscular hemoglobin (MCH) determinationOrdered By: Clementina Peñaloza on 12-24-2024 MCH (RBC) [Entitic mass] 31.7 pg 27.0-32.0 [facility] Mean corpuscular hemoglobin concentration (MCHC) determinationOrdered By: Clementina Peñalzoa on 12-24-2024 MCHC (RBC) [Mass/Vol] 34.9 g/dL 32-36 [facility] Mean platelet volume determi nationOrdered By: Clementina Peñaloza on 12-24-2024 Platelet mean volume (Bld) [Entitic vol] 9.5 fL 6.2-12.0 [facility] Platelet countOrdered By: Trent Peñaloza on 12-24-2024 Platelets (Bld) [#/Vol] 259 10*3/uL 150-450 [facility] Potassium measurement (mass/ volume)Ordered By: Clementina Peñaloza on 12-24-2024 Potassium (Unsp spec) [Mass/Vol] 4.5 mmol/L 3.3-5.1 [facility] RBC Auto (Bld) [#/Vol]Ordere d By: Clementina Peñaloza on 12-24-2024 RBC (Bld) [#/Vol] 5.01 10*6/uL 4.6-6.2 [facility] Serum creatinine measurement (mass/volume)Ordered By: Clementina Peñaloza on 12-24-2024 Creatinine [Mass/Vol] 0.97 mg/dL 0.70-1.20 [facility] Serum globulin measurementOr dered By: Clementina Peñaloza on 12-24-2024 Globulin (S) [Mass/Vol] 3.5 g/dL 2.2-4.[address] [facility] Serum glucose measurement (m ass/volume)Ordered By: Clementina Peñaloza on 12-24-2024 Glucose [Mass/Vol] 102 mg/dL High 70-99 [facility] Serum or plasma alanine sparks otransferase (ALT) measurementOrdered By: Clementina Peñaloza 12-24-2024 ALT [Catalytic activity/Vol] 23 U/L <47 [facility] Serum or plasma albumin lester urement (mass/volume)Ordered By: Clementina Peñaloza on 12-24-2024 Albumin [Mass/Vol] 4.8 g/dL 3.4-4.8 [facility] Serum or plasma albumin/glob ulin mass ratioOrdered By: Clementina Peñaloza on 12-24-2024 Albumin/Globulin [Mass ratio] 1.4 {ratio} 0.9-2.4 [facility] Serum or plasma alkaline pk sphatase measurementOrdered By: Clementina Peñaloza on 12-24-2024 ALP [Catalytic activity/Vol] 77 U/L 40-129 [facility] Serum or plasma calcium lester urement (mass/volume)Ordered By: Clementina Peñaloza on 12-24-2024 Calcium [Mass/Vol] 10.1 mg/dL 7.6-11.0 [facility] Serum or plasma urea nitroge n measurement (mass/volume)Ordered By: Clementina Peñaloza on 12-24-2024 Urea nitrogen [Mass/Vol] 13 mg/dL 4-19 [facility] Sodium levelOrdered By: Markie Peñaloza on 12-24-2024 Sodium [Moles/Vol] 136 mmol/L 133-145 [facility] TSH DL <= 0.005 mIU/L QnOrde red By: Clementina Peñaloza on 12-24-2024 TSH Qn 0.852 uIU/mL 0.300-4.200 [facility] Thyroid Stim Hormone (TSH)on 12-24-2024 TSH 0.852 uIU/mL Normal 0.300-4.200 [facility] Comment on above: Performed By: #### L 100.0500, L500.4050, L501.5200, L501.9520 #### [facility] [address] [place] [address], [address] Total proteinOrdered By: Matt Peñaloza on 12-24-2024 Protein [Mass/Vol] 8.2 g/dL 5.9-8.4 [facility] White blood cell (WBC) count Ordered By: Clementina Peñaloza on 12-24-2024 WBC (Bld) [#/Vol] 5.5 10*3/uL 4.4-11.0 [facility] CHEST 2 VIEWSon 11-16-2024 CHEST 2 VIEWS [place] [address] Patient: MARY PHAN Phone#: : 1965 Age: 59 Gender: M Pt. Type: Out Account: [id number] Location: 052 Ordering: [facility] Exam Date: 11/16/2024/13:35 Family Phys: Charge Code: [id number] Physician: Republic Order #: [id number] Dose#: PROCEDURE: X-RAY CHEST 2 VIEWS COMPARISON: [facility], XR, CHEST 2 VIEWS, 04/30/2022, 10:11. INDICATIONS: Syncope FINDINGS: LUNGS: Normal. No significant pulmonary parenchymal abnormalities. VASCULATURE: Normal. Unremarkable pulmonary vasculature. CARDIAC: Normal. No cardiac silhouette abnormality or cardiomegaly. MEDIASTINUM: Normal. No visible mass or adenopathy. PLEURA: Normal. No effusion or pleural thickening. BONES: Normal. No fracture or visible bony lesion. OTHER: Negative. CONCLUSION: No acute disease. Dictated by: Marci Kwok MD on 11/16/2024 at 14:09 Approved by: Marci Kwok MD on 11/16/2024 at 14:11 Normal [facility] HAND LT MIN 3 VIEWSon 2024 HAND LT MIN 3 VIEWS [place] [id number] Patient: MARY PHAN Phone#: : 1965 Age: 59 Gender: M Pt. Type: Out Account: [id number] Location: 052 Ordering: [facility] Exam Date: 11/16/2024/13:41 Family Phys: Charge Code: 101857 Physician: Republic Order #: [id number] Dose#: PROCEDURE: X-RAY HAND LT COMPLETE 3 VIEWS COMPARISON: [facility], XR, HAND LT MIN 3 VIEWS, 04/15/2018, 9:02. INDICATIONS: Hand injury. FINDINGS: BONES: No significant arthropathy or acute abnormality. Mild degenerative changes are present at the wrist. SOFT TISSUES: Negative. No visible soft tissue swelling. EFFUSION: None visible. OTHER: Negative. CONCLUSION: No acute disease. Mild degenerative changes are present at the wrist. Dictated by: Marci Kwok MD on 11/16/2024 at 13:59 Approved by: Marci Kwok MD on 11/16/2024 at 14:05 Normal [facility] COMPREHENSIVE METABOLIC PANE [facility] 07-07-2024 Albumin [Mass/Vol] 4.8 g/dL Normal 3.6-5.1 [facility] Comment on above: Performed By: #### 1 0231, 7600 #### [facility] of [address], [address] [place] [address] Bias Machine Operator: Beka Heart MD Albumin/Globulin [Mass ratio] 1.5 {ratio} Normal 1.0-2.5 [facility] Comment on above: Performed By: #### 1 0231, 7600 #### [facility] [place] [address] Bias Machine Operator: Beka Heart MD ALP [Catalytic activity/Vol] 64 U/L Normal 35-144 [facility] Comment on above: Performed By: #### 1 0231, 7600 #### [facility] [place] [address] Bias Machine Operator: Beka Heart MD ALT [Catalytic activity/Vol] 19 U/L Normal 9-46 [facility] Comment on above: Performed By: #### 1 0231, 7600 #### [facility] [place] [address] Bias Machine Operator: Beka Heart MD AST [Catalytic activity/Vol] 54 U/L High 10-35 [facility] Comment on above: Performed By: #### 1 0231, 7600 #### [facility] [place] [address] Bias Machine Operator: Beka Heart MD Bilirubin [Mass/Vol] 1.4 mg/dL High 0.2-1.2 [facility] Comment on above: Performed By: #### 1 0231, 7600 #### [facility] [address], [address] [place] [address] Bias Machine Operator: Beka Heart MD BUN/CREATININE RATIO SEE NOTE: Normal 6-22 [facility] Comment on above: Result Comment: Not Reported: BUN and Creatinine are within reference range. Performed By: #### 1 0231, 7600 #### [facility] of [address], [address] [place] [address] Bias Machine Operator: Beka Heart MD Calcium [Mass/Vol] 10.3 mg/dL Normal 8.6-10.3 [facility] Comment on above: Performed By: #### 1 0231, 7600 #### [facility] of [address], [address] [place] [address] Bias Machine Operator: Beka Heart MD Chloride [Moles/Vol] 103 mmol/L Normal 98-110 [facility] Comment on above: Performed By: #### 1 023, 7600 #### [facility] of [address], [address] [place] [address] Bias Machine Operator: Beka Heart MD CO2 [Moles/Vol] 27 mmol/L Normal 20-32 [facility] Comment on above: Performed By: #### 1 023, 7600 #### [facility] of [address], [address] [place] [address] Bias Machine Operator: Beka Heart MD Creatinine [Mass/Vol] 1.00 mg/dL Normal 0.70-1.35 [facility] Comment on above: Performed By: #### 1 0231, 7600 #### [facility] of [address], [address] [place] [address] Bias Machine Operator: Beka Heart MD GFR/1.73 sq M.predicted among non-blacks MDRD (S/P/Bld) [Vol rate/Area] 86 mL/min/{1.73_m2} Normal > OR = 60 [facility] Comment on above: Performed By: #### 1 0231, 7600 #### [facility] of [address], [address] [place] [address] Bias Machine Operator: Beka Heart MD Globulin (S) [Mass/Vol] 3.1 g/dL Normal 1.9-3.7 [facility] Comment on above: Performed By: #### 1 0231, 7600 #### [facility] of [place] [address] Bias Machine Operator: Beka Heart MD Glucose [Mass/Vol] 96 mg/dL Normal 65-99 [facility] Comment on above: Result Comment: Fasting reference interval Performed By: #### 1 0231, 7600 #### [facility] of [place] [address] Bias Machine Operator: Beka Heart MD Potassium [Moles/Vol] 4.7 mmol/L Normal 3.5-5.[address] [facility] Comment on above: Performed By: #### 1 023, 0 #### [facility] of [place] [address] Bias Machine Operator: Beka Heart MD Protein [Mass/Vol] 7.9 g/dL Normal 6.1-8.1 [facility] Comment on above: Performed By: #### 1 0231, 7600 #### [facility] [place] [address] Bias Machine Operator: Beka Heart MD Sodium [Moles/Vol] 138 mmol/L Normal 135-146 [facility] Comment on above: Performed By: #### 1 0231, 7600 #### [facility] of [place] [address] Bias Machine Operator: Beka Heart MD Urea nitrogen [Mass/Vol] 17 mg/dL Normal 7-25 [facility] Comment on above: Performed By: #### 1 0231, 7600 #### [facility] of [place] [address] Bias Machine Operator: Beka Heart MD LIPID PANEL, [place] [address]2 Cholesterol [Mass/Vol] 192 mg/dL Normal <200 [facility] Comment on above: Performed By: #### 1 023, 0 #### [facility] [place] [address] Bias Machine Operator: Beka Heart MD Cholesterol in HDL [Mass/Vol] 53 mg/dL Normal > OR = 40 [facility] Comment on above: Performed By: #### 1 023, 7600 #### [facility] [address], [address] [place] [address] Bias Machine Operator: Beka Heart MD Cholesterol in LDL [Mass/Vol] 121 mg/dL High [facility] Comment on above: Result Comment: Refe rence range: <100 Desirable range <100 mg/dL for primary prevention; <70 mg/dL for patients with CHD or diabetic patients with > or = 2 CHD risk factors. LDL-C is now calculated using the Ani calculation, which is a validated novel method providing better accuracy than the Friedewald equation in the estimation of LDL-C. Everardo PASCUAL et al. FRANCOISE. 2013;310(19): 9116-3943 (http://education.RegaloCard.Aepona/faq/UWW850) Performed By: #### 1 230, 0 #### [facility] [place] [address] Bias Machine Operator: Beka Heart MD Cholesterol.total/Choles terol in HDL [Mass ratio] 3.6 {ratio} Normal <5.0 [facility] Comment on above: Performed By: #### 1 023, 0 #### [facility] [place] [address] Bias Machine Operator: Beka Heart MD NON HDL CHOLESTEROL 139 mg/dL (calc) High <130 [facility] Comment on above: Result Comment: For patients with diabetes plus 1 major ASCVD risk factor, treating to a non-HDL-C goal of <100 mg/dL (LDL-C of <70 mg/dL) is considered a therapeutic option. Performed By: #### 1 023, 7600 #### [place] [address] Bias Machine Operator: Beka Heart MD Triglyceride [Mass/Vol] 82 mg/dL Normal <150 [facility] Comment on above: Performed By: #### 1 0231, 4390 #### [facility] [address], [address] [place] [address] Bias Machine Operator: Beka Heart MD Laboratory - Chemistry and C hemistry - challengeon 07-06-2024 Albumin [Mass/Vol] 4.8 g/dL Normal 3.6 - 5.1 g/dL [facility], [facility].; [facility] Albumin/Globulin [Mass ratio] 1.5 {ratio} Normal 1.0 - 2.5 [facility], [facility].; [employer]) [facility] ALP [Catalytic activity/Vol] 64 U/L Normal 35 - 144 U/L [facility] [employer] [employer] ALT [Catalytic activity/Vol] 19 U/L Normal 9 - 46 U/L [facility], [facility].; [employer] [employer] AST [Catalytic activity/Vol] 54 U/L Abnormal 10 - 35 U/L [facility] [email or web address] Bilirubin [Mass/Vol] 1.4 mg/dL Abnormal 0.2 - 1 .2 mg/dL [facility] [employer] [facility] [employer]) [facility] [email or web address] Calcium [Mass/Vol] 10.3 mg/dL Normal 8.6 - 10. 3 mg/dL [facility] [employer] [employer] Chloride [Moles/Vol] 103 mmol/L Normal 98 - 11 0 mmol/L [facility] [employer] Cholesterol [Mass/Vol] 192 mg/dL Normal [facility], [facility].; [facility] [employer]) [facility] Cholesterol in HDL [Mass/Vol] 53 mg/dL Normal [facility] [employer] [employer] Cholesterol in LDL [Mass/Vol] 121 mg/dL Abnormal [facility] [employer] [employer] CO2 [Moles/Vol] 27 mmol/L Normal 20 - 32 mmol/L [facility] [email or web address] Creatinine [Mass/Vol] 1.00 mg/dL Normal 0.70 - 1.35 mg/dL [facility], [facility].; [facility] GFR/1.73 sq M.predicted among non-blacks MDRD (S/P/Bld) [Vol rate/Area] 86 mL/min/{1.73_m2} Normal [facility], [facility].; [employer]) [facility] Glucose [Mass/Vol] 96 mg/dL Normal 65 - 99 mg/dL [facility].; [employer]) [facility] Potassium [Moles/Vol] 4.7 mmol/L Normal 3.5 - 5.3 mmol/L [facility], [facility].; [facility], [facility]. Protein [Mass/Vol] 7.9 g/dL Normal 6.1 - 8.1 g/dL [facility], [facility].; [employer] [employer] Sodium [Moles/Vol] 138 mmol/L Normal 135 - 146 mmol/L [facility], [facility].; [facility] Triglyceride [Mass/Vol] 82 mg/dL Normal H [facility], [facility].; [facility], [facility]. Urea nitrogen [Mass/Vol] 17 mg/dL Normal 7 - 25 mg/d L [facility].; [facility], [facility]. No Panel Informationon 07-06 BUN/CREATININE RATIO SEE NOTE: Normal 6 - 22 [facility], [facility].; [employer] [employer] CHOL/HDLC RATIO 3.6 Normal [facility], [facility].; [employer] [employer] GLOBULIN 3.1 Normal 1.9 - 3.7 [facility], [facility].; [employer]) [facility] NON HDL CHOLESTEROL 139 Abnormal [facility], [facility].; [employer]) [facility] COMPREHENSIVE METABOLIC PANE [facility] 07-11-2023 Albumin [Mass/Vol] 4.6 g/dL Normal 3.6-5.1 [facility] Comment on above: Performed By: #### 5 363, 6730, 35855 #### [facility] [place] [address] [address] , [address] [place] [id number] Bias Machine Operator: Beka Heart MD Albumin/Globulin [Mass ratio] 1.5 {ratio} Normal 1.0-2.5 [facility] Comment on above: Performed By: #### 5 363, 7600, 43617 #### [facility] of [address], [address] [place] [address] Bias Machine Operator: Beka Heart MD ALP [Catalytic activity/Vol] 78 U/L Normal 35-144 [facility] Comment on above: Performed By: #### 5 363, 7600, 81950 #### [facility] of [address], [address] [place] [address] [employer]ias Machine Operator: Beka Heart MD ALT [Catalytic activity/Vol] 20 U/L Normal 9-46 [facility] Comment on above: Performed By: #### 5 363, 7600, 59981 #### [facility] of [address], [address] [place] [address] Bias Machine Operator: Beka Heart MD AST [Catalytic activity/Vol] 42 U/L High 10-35 [facility] Comment on above: Performed By: #### 5 363, 7600, 08658 #### [facility] of [place] [address] Bias Machine Operator: Beka Heart MD Bilirubin [Mass/Vol] 1.0 mg/dL Normal 0.2-1.2 [facility] Comment on above: Performed By: #### 5 363, 7600, 74110 #### [facility] of [address], [address] [place] [address] Bias Machine Operator: Beka Heart MD BUN/CREATININE RATIO SEE NOTE: Normal 6-22 [facility] Comment on above: Result Comment: Not Reported: BUN and Creatinine are within reference range. Performed By: #### 5 363, 7600, 72612 #### [facility] of [place] [address] Bias Machine Operator: Beka Heart MD Calcium [Mass/Vol] 10.3 mg/dL Normal 8.6-10.3 [facility] Comment on above: Performed By: #### 5 363, 7600, 83572 #### [facility] of [address], [address] [place] [address] Bias Machine Operator: Beka Heart MD Chloride [Moles/Vol] 101 mmol/L Normal 98-110 [facility] Comment on above: Performed By: #### 5 363, 7600, 09343 #### [facility] of [address], [address] [place] [address] Bias Machine Operator: Beka Heart MD CO2 [Moles/Vol] 27 mmol/L Normal 20-32 [facility] Comment on above: Performed By: #### 5 363, 7600, 02597 #### [facility] of [address], [address] [place] [address] Bias Machine Operator: Beka Heart MD Creatinine [Mass/Vol] 0.85 mg/dL Normal 0.70-1.[address] [facility] Comment on above: Performed By: #### 5 363, 7600, 26382 #### [facility] of [place] [address] Bias Machine Operator: Beka Heart MD GFR/1.73 sq M.predicted among non-blacks MDRD (S/P/Bld) [Vol rate/Area] 99 mL/min/{1.73_m2} Normal > OR = 60 [facility] Comment on above: Performed By: #### 5 363, 7600, 97970 #### [facility] of [address], [address] [place] [address] Bias Machine Operator: Beka Heart MD Globulin (S) [Mass/Vol] 3.1 g/dL Normal 1.9-3.7 [facility] Comment on above: Performed By: #### 5 363, 7600, 31220 #### [facility] of [place] [address] Bias Machine Operator: Beka Heart MD Glucose [Mass/Vol] 94 mg/dL Normal 65-99 [facility] Comment on above: Result Comment: Fasting reference interval Performed By: #### 5 363, 7600, 64646 #### [facility] of [address], [address] [place] [address] Bias Machine Operator: Beka Heart MD Potassium [Moles/Vol] 4.8 mmol/L Normal 3.5-5.[address] [facility] Comment on above: Performed By: #### 5 363, 7600, 86665 #### [facility] of [address], [address] [place] [address] Bias Machine Operator: Beka Heart MD Protein [Mass/Vol] 7.7 g/dL Normal 6.1-8.1 [facility] Comment on above: Performed By: #### 5 363, 7600, 31435 #### [facility] of [address], [address] [place] [address] Bias Machine Operator: Beka Heart MD Sodium [Moles/Vol] 137 mmol/L Normal 135-146 [facility] Comment on above: Performed By: #### 5 363, 7600, 18599 #### [facility] of [address], [address] [place] [address] Bias Machine Operator: Beka Heart MD Urea nitrogen [Mass/Vol] 16 mg/dL Normal 7-25 [facility] Comment on above: Performed By: #### 5 363, 7600, 68087 #### [facility] of [address], [address] [place] [address] Bias Machine Operator: Beka Heart MD LIPID PANEL, [facility] 11-3 0-2022 Cholesterol [Mass/Vol] 205 mg/dL High <200 [facility] Comment on above: Performed By: #### 5 363, 7600, 93398 #### [facility] of [address], [address] [place] [address] Bias Machine Operator: Beka Heart MD Cholesterol in HDL [Mass/Vol] 39 mg/dL Low > OR = 40 [facility] Comment on above: Performed By: #### 5 363, 7600, 81117 #### [facility] of [address], [address] [place] [address] Bias Machine Operator: Beka Heart MD Cholesterol in LDL [Mass/Vol] 135 mg/dL High [facility] Comment on above: Result Comment: Refe rence range: <100 Desirable range <100 mg/dL for primary prevention; <70 mg/dL for patients with CHD or diabetic patients with > or = 2 CHD risk factors. LDL-C is now calculated using the Ani calculation, which is a validated novel method providing better accuracy than the Friedewald equation in the estimation of LDL-C. Everardo SS et al. FRANCOISE. 2013;310(19): 9181-4502 (http://education.Kidos/faq/QBQ874) Performed By: #### 5 363, 7600, 83847 #### [facility] [place] [address] Bias Machine Operator: Beka Heart MD Cholesterol.total/Choles terol in HDL [Mass ratio] 5.3 {ratio} High <5.0 [facility] Comment on above: Performed By: #### 5 363, 7600, 98214 #### [facility] [place] [address] Bias Machine Operator: Beka Heart MD NON HDL CHOLESTEROL 166 mg/dL (calc) High <130 [facility] Comment on above: Result Comment: For patients with diabetes plus 1 major ASCVD risk factor, treating to a non-HDL-C goal of <100 mg/dL (LDL-C of <70 mg/dL) is considered a therapeutic option. Performed By: #### 5 363, 7600, 57682 #### [facility] [address], [address] [place] [address] Bias Machine Operator: Beka Heart MD Triglyceride [Mass/Vol] 172 mg/dL High <150 [facility] Comment on above: Performed By: #### 5 363, 7600, 35113 #### [facility] [place] [address] Bias Machine Operator: Beka Heart MD PSA, TOTALon 07-11-2023 PSA, TOTAL 0.82 ng/mL Normal < OR = 4.00 [facility] Comment on above: Result Comment: The total PSA value from this assay system is standardized against the WHO standard. The test result will be approximately 20% lower when compared to the equimolar-standardized total PSA ([place]). Comparison of serial PSA results should be interpreted with this fact in mind. This test was performed using the Siemens chemiluminescent method. Values obtained from different assay methods cannot be used interchangeably. PSA levels, regardless of value, should not be interpreted as absolute evidence of the presence or absence of disease. Performed By: #### 5 363, 6500, 28385 #### [facility] [address] [facility], [address] [place] [address] Bias Machine Operator: Beka Heart MD Laboratory - Chemistry and C hemistry - challengeon 07-10-2023 Albumin [Mass/Vol] 4.6 g/dL Normal 3.6 - 5.1 g/dL [facility] Albumin/Globulin [Mass ratio] 1.5 {ratio} Normal 1.0 - 2.5 [facility], [facility].; [employer] [employer] ALP [Catalytic activity/Vol] 78 U/L Normal 35 - 144 U/L [facility] [employer]) [facility] ALT [Catalytic activity/Vol] 20 U/L Normal 9 - 46 U/L [facility], [facility].; [employer] AST [Catalytic activity/Vol] 42 U/L Abnormal 10 - 35 U/L [facility], [facility].; [employer] Bilirubin [Mass/Vol] 1.0 mg/dL Normal 0.2 - 1 .2 mg/dL [facility], [facility].; [employer] Calcium [Mass/Vol] 10.3 mg/dL Normal 8.6 - 10. 3 mg/dL [facility], [facility].; [employer]) [facility] Chloride [Moles/Vol] 101 mmol/L Normal 98 - 11 0 mmol/L [facility] [employer] Cholesterol [Mass/Vol] 205 mg/dL Abnormal [facility], [facility].; [employer]) [facility] Cholesterol in HDL [Mass/Vol] 39 mg/dL Abnormal [facility].; [facility], [facility]. Cholesterol in LDL [Mass/Vol] 135 mg/dL Abnormal [facility].; [facility], [facility]. CO2 [Moles/Vol] 27 mmol/L Normal 20 - 32 mmol/L [facility], [facility].; [facility], [facility]. Creatinine [Mass/Vol] 0.85 mg/dL Normal 0.70 - 1.35 mg/dL [facility].; [facility], [facility]. GFR/1.73 sq M.predicted among non-blacks MDRD (S/P/Bld) [Vol rate/Area] 99 mL/min/{1.73_m2} Normal [facility].; [facility], [facility]. Glucose [Mass/Vol] 94 mg/dL Normal 65 - 99 mg/dL [facility].; [facility], [facility]. Potassium [Moles/Vol] 4.8 mmol/L Normal 3.5 - 5.3 mmol/L [facility], [facility].; [facility], [facility]. Protein [Mass/Vol] 7.7 g/dL Normal 6.1 - 8.1 g/dL [facility], [facility].; [facility], [facility]. Sodium [Moles/Vol] 137 mmol/L Normal 135 - 146 mmol/L [facility], [facility].; [facility], [facility]. Triglyceride [Mass/Vol] 172 mg/dL Abnormal [facility].; [facility], [facility] Urea nitrogen [Mass/Vol] 16 mg/dL Normal 7 - 25 mg/d L [facility].; [facility], [facility]. No Panel Informationon 07-10 BUN/CREATININE RATIO SEE NOTE: Normal 6 - 22 [facility], [facility].; [facility] CHOL/HDLC RATIO 5.3 Abnormal [facility].; [facility] GLOBULIN 3.1 Normal 1.9 - 3.7 [facility], [facility].; [facility] NON HDL CHOLESTEROL 166 Abnormal [facility], [facility].; [facility], [facility]. PSA, TOTAL 0.82 ng/mL Normal [facility].; [facility] Laboratory - Chemistry and C hemistry - challengeon 06-27-2022 Albumin [Mass/Vol] 4.8 g/dL Normal 3.6 - 5.1 g/dL [facility].; [facility], [facility] Albumin/Globulin [Mass ratio] 1.7 {ratio} Normal 1.0 - 2.5 [facility].; [facility], [facility] ALP [Catalytic activity/Vol] 84 U/L Normal 35 - 144 U/L [facility].; [facility], [facility]. ALT [Catalytic activity/Vol] 21 U/L Normal 9 - 46 U/L [facility].; [facility], [facility]. AST [Catalytic activity/Vol] 45 U/L Abnormal 10 - 35 U/L [facility].; [facility], [facility] Bilirubin [Mass/Vol] 0.9 mg/dL Normal 0.2 - 1 .2 mg/dL [facility].; [facility], [facility] Calcium [Mass/Vol] 10.4 mg/dL Abnormal 8.6 - 10. 3 mg/dL [facility].; [facility], [facility]. Chloride [Moles/Vol] 102 mmol/L Normal 98 - 11 0 mmol/L [facility].; [facility], [facility]. Cholesterol [Mass/Vol] 183 mg/dL Normal [facility].; [facility], [facility] Cholesterol in HDL [Mass/Vol] 41 mg/dL Normal [facility].; [facility], [facility]. Cholesterol in LDL [Mass/Vol] 116 mg/dL Abnormal [facility].; [facility], [facility]. CO2 [Moles/Vol] 28 mmol/L Normal 20 - 32 mmol/L [facility].; [facility], [facility]. Creatinine [Mass/Vol] 0.79 mg/dL Normal 0.70 - 1.30 mg/dL [facility], [facility].; [facility], [facility]. GFR/1.73 sq M.predicted among non-blacks MDRD (S/P/Bld) [Vol rate/Area] 103 mL/min/{1.73_m2} Normal [facility], [facility].; [facility], [facility]. Glucose [Mass/Vol] 101 mg/dL Abnormal 65 - 99 mg/dL [facility].; [facility], [facility]. Potassium [Moles/Vol] 4.6 mmol/L Normal 3.5 - 5.3 mmol/L [facility], [facility].; [facility], [facility]. Protein [Mass/Vol] 7.7 g/dL Normal 6.1 - 8.1 g/dL [facility], [facility].; [facility], [facility]. Sodium [Moles/Vol] 137 mmol/L Normal 135 - 146 mmol/L [facility], [facility].; [facility], [facility]. Triglyceride [Mass/Vol] 150 mg/dL Abnormal H [facility], [facility].; [facility], [facility]. Urea nitrogen [Mass/Vol] 14 mg/dL Normal 7 - 25 mg/d L [facility], [facility].; [facility], [facility]. No Panel Informationon 06-27 BUN/CREATININE RATIO NOT APPLICABLE Normal 6 - 22 [facility], [facility].; [employer]. CHOL/HDLC RATIO 4.5 Normal [facility], [facility].; [employer], [facility]. GLOBULIN 2.9 Normal 1.9 - 3.7 [facility], [facility].; [employer]) [facility] NON HDL CHOLESTEROL 142 Abnormal [facility].; [facility], [employer]. Glucose Glucometer (BldC) [M ass/Vol]on 05-10-2022 Glucose [Mass/Vol] 104 mg/dL 74-106 [facility] Work Phone: Comment on above: MANAGEMENT OF PATIEN T CARE PER NURSING PROTOCOL HbA1c (Bld)on 04-26-2022 Average glucose Estimated from glycated hemoglobin (Bld) [Mass/Vol] 111 mg/dL Normal [facility] Comment on above: Order Comment: Speci men Type: BLOOD SPECIMEN Ordering Facility: [facility] Address: [address] [place] [address] Result Comment: eAG: (Estimated average glucose) is a calculated value from HgbA1c and is policy services representative of the average blood glucose level in the last 2-3 month period. Performed By: #### 5 5454-3 #### [facility] CLIA [id number] [address] [place] [address] [place] HbA1c (Bld) [Mass fraction] 5.5 % Normal 4.3-5.6 [facility] Comment on above: Order Comment: Speci men Type: BLOOD SPECIMEN Ordering Facility: [facility] Address: [address] [place] [address] Result Comment: Ammaria del carmen ican Diabetes Association guidelines indicate that patients with HgbA1c in the range 5.7-6.4% are at increased risk for development of diabetes, and intervention by lifestyle modification may be beneficial. HgbA1c greater or equal to 6.5% is considered diagnostic of diabetes. Performed By: #### 5 5454-3 #### [facility] CLIA [id number] [address] [place] [address] [place] Laboratory - Chemistry and C hemistry - challengeon 09-05-2020 Albumin [Mass/Vol] 4.8 g/dL Normal 3.6 - 5.1 g/dL [employer] [facility] [employer] Albumin/Globulin [Mass ratio] 1.7 {ratio} Normal 1.0 - 2.5 [employer] [employer] ALP [Catalytic activity/Vol] 80 U/L Normal 35 - 144 U/L [email or web address] [employer] ALT [Catalytic activity/Vol] 27 U/L Normal 9 - 46 U/L [email or web address] AST [Catalytic activity/Vol] 53 U/L Abnormal 10 - 35 U/L [email or web address] Bilirubin [Mass/Vol] 1.2 mg/dL Normal 0.2 - 1 .2 mg/dL [employer] Calcium [Mass/Vol] 10.3 mg/dL Normal 8.6 - 10. 3 mg/dL [email or web address] Chloride [Moles/Vol] 102 mmol/L Normal 98 - 11 0 mmol/L [facility], [facility].; [facility], [facility]. Cholesterol [Mass/Vol] 202 mg/dL Abnormal [facility].; [facility], [facility] Cholesterol in HDL [Mass/Vol] 42 mg/dL Normal [facility], [facility].; [facility], [facility] Cholesterol in LDL [Mass/Vol] 128 mg/dL Abnormal [facility].; [facility], [facility] CO2 [Moles/Vol] 26 mmol/L Normal 20 - 32 mmol/L [facility].; [facility], [facility] Creatinine [Mass/Vol] 0.89 mg/dL Normal 0.70 - 1.33 mg/dL [facility].; [facility], [facility] GFR/1.73 sq M.predicted among blacks MDRD (S/P/Bld) [Vol rate/Area] 110 mL/min/{1.73_m2} Normal [facility].; [facility], [facility] Glucose [Mass/Vol] 83 mg/dL Normal 65 - 99 mg/dL [facility].; [facility], [facility] Potassium [Moles/Vol] 4.4 mmol/L Normal 3.5 - 5.3 mmol/L [facility].; [facility], [facility] Protein [Mass/Vol] 7.7 g/dL Normal 6.1 - 8.1 g/dL [facility], [facility].; [facility], [facility]. Sodium [Moles/Vol] 136 mmol/L Normal 135 - 146 mmol/L [facility], [facility].; [facility], [facility]. Triglyceride [Mass/Vol] 187 mg/dL Abnormal [facility].; [facility], [facility] Urea nitrogen [Mass/Vol] 14 mg/dL Normal 7 - 25 mg/d L [facility], [facility].; [facility], [facility] No Panel Informationon 09-05 BUN/CREATININE RATIO NOT APPLICABLE Normal 6 - 22 [facility], [facility].; [facility] CHOL/HDLC RATIO 4.8 Normal [facility]; [facility] eGFR NON-AFR. MICRONESIAN 95 Normal [facility]; [facility] GLOBULIN 2.9 Normal 1.9 - 3.7 [facility]; [facility] NON HDL CHOLESTEROL 160 Abnormal [facility]; [facility] PSA, TOTAL 0.7 ng/mL Normal [facility]; [facility] Laboratory - Chemistry and C hemistry - challengeon 08-13-2019 Albumin [Mass/Vol] 4.8 g/dL Normal 3.6 - 5.1 g/dL [facility]; [facility], [facility] Albumin/Globulin [Mass ratio] 1.5 {ratio} Normal 1.0 - 2.5 [facility]; [facility], [facility] ALP [Catalytic activity/Vol] 72 U/L Normal 40 - 115 U/L [facility]; [facility], [facility] ALT [Catalytic activity/Vol] 24 U/L Normal 9 - 46 U/L [facility]; [facility], [facility]. AST [Catalytic activity/Vol] 49 U/L Abnormal 10 - 35 U/L [facility]; [facility], [facility] Bilirubin [Mass/Vol] 1.1 mg/dL Normal 0.2 - 1 .2 mg/dL [facility]; [facility], [facility] Calcium [Mass/Vol] 10.4 mg/dL Abnormal 8.6 - 10. 3 mg/dL [facility]; [facility], [facility] Chloride [Moles/Vol] 101 mmol/L Normal 98 - 11 0 mmol/L [facility]; [facility], [facility] Cholesterol [Mass/Vol] 190 mg/dL Normal [facility]; [facility] Cholesterol in HDL [Mass/Vol] 48 mg/dL Normal [facility]; [facility], [facility] Cholesterol in LDL [Mass/Vol] 123 mg/dL Abnormal [facility]; [facility] CO2 [Moles/Vol] 28 mmol/L Normal 20 - 32 mmol/L [facility].; [facility], [facility] Creatinine [Mass/Vol] 1.04 mg/dL Normal 0.70 - 1.33 mg/dL [facility].; [facility], [facility]. GFR/1.73 sq M.predicted among blacks MDRD (S/P/Bld) [Vol rate/Area] 93 mL/min/{1.73_m2} Normal [facility].; [facility], [facility] Glucose [Mass/Vol] 94 mg/dL Normal 65 - 99 mg/dL [facility], [facility]. Potassium [Moles/Vol] 4.8 mmol/L Normal 3.5 - 5.3 mmol/L [facility]; [facility], [facility] Protein [Mass/Vol] 7.9 g/dL Normal 6.1 - 8.1 g/dL [facility]; [facility], [facility] Sodium [Moles/Vol] 137 mmol/L Normal 135 - 146 mmol/L [facility]; [facility], [facility]. Triglyceride [Mass/Vol] 90 mg/dL Normal [facility]; [facility], [facility] Urea nitrogen [Mass/Vol] 15 mg/dL Normal 7 - 25 mg/d L [facility]; [facility], [facility] No Panel Informationon 08-13 BUN/CREATININE RATIO NOT APPLICABLE Normal 6 - 22 [facility]; [facility], [facility] CHOL/HDLC RATIO 4.0 Normal [facility]; [facility], [facility] eGFR NON-AFR. MICRONESIAN 80 Normal [facility]; [facility], [facility] GLOBULIN 3.1 Normal 1.9 - 3.7 [facility]; [facility], [facility] NON HDL CHOLESTEROL 142 Abnormal [facility].; [place] [employer] [facility], [facility] Laboratory - Chemistry and C hemistry - challengeon 07-25-2018 Albumin [Mass/Vol] 5.0 g/dL Normal 3.6 - 5.1 g/dL [facility]; [facility]. Albumin/Globulin [Mass ratio] 1.7 {ratio} Normal 1.0 - 2.5 [facility]; [facility] ALP [Catalytic activity/Vol] 82 U/L Normal 40 - 115 U/L [facility].; [facility], [facility]. ALT [Catalytic activity/Vol] 30 U/L Normal 9 - 46 U/L [facility].; [facility], [facility]. AST [Catalytic activity/Vol] 65 U/L Abnormal 10 - 35 U/L [facility].; [facility], [facility] Bilirubin [Mass/Vol] 1.5 mg/dL Abnormal 0.2 - 1 .2 mg/dL [facility]; [facility], [facility] Calcium [Mass/Vol] 9.9 mg/dL Normal 8.6 - 10. 3 mg/dL [facility]; [facility], [facility] Chloride [Moles/Vol] 102 mmol/L Normal 98 - 11 0 mmol/L [facility]; [facility], [facility]. Cholesterol [Mass/Vol] 195 mg/dL Normal [facility]; [facility], [facility] Cholesterol in HDL [Mass/Vol] 51 mg/dL Normal [facility]; [facility], [facility] Cholesterol in LDL [Mass/Vol] 128 mg/dL Abnormal 0 - 100 mg/dL [facility].; [facility], [facility] Cholesterol non HDL [Mass/Vol] 144 mg/dL Abnormal [facility]; [facility], [facility] Cholesterol.total/Choles terol in HDL [Mass ratio] 3.8 {ratio} Normal [facility].; [facility], [facility] CO2 [Moles/Vol] 26 mmol/L Normal 20 - 32 mmol/L [facility].; [facility], [facility] Creatinine [Mass/Vol] 0.93 mg/dL Normal 0.70 - 1.33 mg/dL [facility], [facility].; [facility], [facility] GFR/1.73 sq M.predicted among blacks MDRD (S/P/Bld) [Vol rate/Area] 107 {ML/MIN/1.73M2} Normal [facility].; [facility], [facility]. GFR/1.73 sq M.predicted MDRD (S/P/Bld) [Vol rate/Area] 92 {ML/MIN/1.73M2} Normal [facility].; [facility], [facility] Globulin (S) [Mass/Vol] 2.9 g/dL Normal 1.9 - 3.7 g/dL [facility].; [facility], [facility] Glucose [Mass/Vol] 95 mg/dL Normal 65 - 99 mg/dL [facility], [facility] Potassium [Moles/Vol] 4.3 mmol/L Normal 3.5 - 5.3 mmol/L [facility].; [facility], [facility] Prostate specific Ag [Mass/Vol] 0.9 ng/mL Normal [facility]; [facility], [facility] Protein [Mass/Vol] 7.9 g/dL Normal 6.1 - 8.1 g/dL [facility].; [facility], [facility]. Sodium [Moles/Vol] 136 mmol/L Normal 135 - 146 mmol/L [facility].; [facility], [facility]. Triglyceride [Mass/Vol] 68 mg/dL Normal [facility].; [facility], [facility] Urea nitrogen [Mass/Vol] 14 mg/dL Normal 7 - 25 mg/d L [facility].; [facility], [facility]. Urea nitrogen/Creatinine [Mass ratio] 15.3 mg/mg Normal 6 - 22 [facility].; [facility], [facility] Laboratory - Chemistry and C hemistry - challengeon 06-20-2017 Albumin [Mass/Vol] 4.5 g/dL Normal 3.4 - 4.8 g/dL [facility].; [facility], [facility]. Albumin [Mass/Vol] 1.6 g/dL Normal 0.9 - 1.6 [facility], [facility].; [facility], [facility] ALP [Catalytic activity/Vol] 59 U/L Normal 38 - 126 U/L [facility].; [facility]. ALT [Catalytic activity/Vol] 22 U/L Normal 10 - 40 U/L [facility].; [facility]. Anion gap [Moles/Vol] 11 mmol/L Normal 10 - 2 0 mmol/L [facility].; [facility]. AST [Catalytic activity/Vol] 54 U/L Abnormal 13 - 39 U/L [facility].; [facility] Bilirubin [Mass/Vol] 1.0 mg/dL Normal 0.0 - 1 .5 mg/dL [facility]; [facility], [facility] Calcium [Mass/Vol] 9.9 mg/dL Normal 8.6 - 10. 2 mg/dL [facility]; [facility], [facility]. Chloride [Moles/Vol] 104 mmol/L Normal 98 - 10 7 mmol/L [facility]; [facility] Cholesterol [Mass/Vol] 190 mg/dL Normal 0 - 200 mg/dL [facility].; [facility], [facility]. Cholesterol in HDL [Mass or moles/Vol] 52 mg/dL Normal 40 - 60 mg/dL [facility]; [facility]. Cholesterol in LDL [Mass/Vol] 125 mg/dL Normal 0 - 129 mg/dL [facility].; [facility], [facility] Cholesterol.total/Choles terol in HDL [Mass ratio] 3.7 {ratio} Normal 0.0 - 5.0 [facility]; [facility], [facility] CO2 [Moles/Vol] 26.8 mmol/L Normal 21.0 - 31.0 mmol/L [facility].; [facility], [facility] Comprehensive metabolic 2000 panel CMP with eGFR Normal [facility]; [facility], [facility] Creatinine [Mass/Vol] 0.9 mg/dL Normal 0.7 - 1.3 mg/dL [facility].; [facility], [facility]. GFR/1.73 sq M.predicted among blacks MDRD (S/P/Bld) [Vol rate/Area] mL/min/{1.73_m2} Normal 60 - 999 {ML/MINUTE} [facility].; [place] [employer]. GFR/1.73 sq M.predicted MDRD (S/P/Bld) [Vol rate/Area] mL/min/{1.73_m2} Normal 60 - 999 {ML/MINUTE} [facility], [facility].; [email or web address]. Globulin (S) [Mass/Vol] 2.8 g/dL Normal 1.5 - 3.8 g/dL [facility].; [email or web address], [employer]. Glucose [Mass/Vol] 91 mg/dL Normal 74 - 106 mg/dL [facility].; [email or web address]. Lipid 1996 panel LIPID PROFILE Normal [facility].; [place] [employer], [employer]. Potassium [Moles/Vol] 4.3 mmol/L Normal 3.5 - 5.1 mmol/L [facility].; [place] [employer]. Protein [Mass/Vol] 7.3 g/dL Normal 6.4 - 8.3 g/dL [facility].; [place] [employer], [employer]. Sodium [Moles/Vol] 137 mmol/L Normal 136 - 145 mmol/L [facility].; [email or web address], [employer]. Triglyceride [Mass/Vol] 66 mg/dL Normal 0 - 150 mg/d L [place] [employer]) [facility].; [email or web address], [employer]. Urea nitrogen [Mass/Vol] 17 mg/dL Normal 6 - 20 mg/d L [facility].; [email or web address], [employer]. Urea nitrogen/Creatinine [Mass ratio] 19 {ratio} Normal 0 - 30 {ratio} [place] [email or web address]. No Panel Informationon 06-20 AGE 51 {years} Normal [place] [email or web address]. Laboratory - Chemistry and C hemistry - challengeon 12-19-2016 Albumin [Mass/Vol] 4.7 g/dL Normal 3.4 - 4.8 g/dL [facility].; [email or web address], [employer]. Albumin [Mass/Vol] 1.7 g/dL Abnormal 0.9 - 1.6 [facility].; [facility]. ALP [Catalytic activity/Vol] 69 U/L Normal 38 - 126 U/L [facility].; [facility]. ALT [Catalytic activity/Vol] 23 U/L Normal 10 - 40 U/L [facility].; [facility], [facility] Anion gap [Moles/Vol] 13 mmol/L Normal 10 - 2 0 mmol/L [facility].; [facility]. AST [Catalytic activity/Vol] 65 U/L Abnormal 13 - 39 U/L [facility].; [facility], [facility]. Bilirubin [Mass/Vol] 1.3 mg/dL Normal 0.0 - 1 .5 mg/dL [facility]; [facility], [facility]. Calcium [Mass/Vol] 9.9 mg/dL Normal 8.6 - 10. 2 mg/dL [facility].; [facility]. Chloride [Moles/Vol] 101 mmol/L Normal 98 - 10 7 mmol/L [facility].; [facility], [facility]. Cholesterol [Mass/Vol] 191 mg/dL Normal 0 - 200 mg/dL [facility].; [facility], [facility]. Cholesterol in HDL [Mass or moles/Vol] 46 mg/dL Normal 40 - 60 mg/dL [facility]; [facility], [facility] Cholesterol in LDL [Mass/Vol] 130 mg/dL Abnormal 0 - 129 mg/dL [facility].; [facility], [facility] Cholesterol.total/Choles terol in HDL [Mass ratio] 4.2 {ratio} Normal 0.0 - 5.0 [facility]; [facility], [facility] CO2 [Moles/Vol] 26.8 mmol/L Normal 21.0 - 31.0 mmol/L [facility].; [facility], [facility]. Comprehensive metabolic 2000 panel CMP with eGFR Normal [facility]; [facility], [facility] Creatinine [Mass/Vol] 1.0 mg/dL Normal 0.7 - 1.3 mg/dL [facility]; [employer] GFR/1.73 sq M.predicted among blacks MDRD (S/P/Bld) [Vol rate/Area] mL/min/{1.73_m2} Normal 60 - 999 {ML/MINUTE} [facility], [facility].; [place] [employer]) [facility], [facility]. GFR/1.73 sq M.predicted MDRD (S/P/Bld) [Vol rate/Area] mL/min/{1.73_m2} Normal 60 - 999 {ML/MINUTE} [facility], [facility].; [place] [employer]. Globulin (S) [Mass/Vol] 2.8 g/dL Normal 1.5 - 3.8 g/dL [facility].; [email or web address], [employer]. Glucose [Mass/Vol] 90 mg/dL Normal 74 - 106 mg/dL [place] [employer]) [facility].; [email or web address], [employer]. Lipid 1996 panel LIPID PROFILE Normal [facility].; [place] [employer], [employer]. Potassium [Moles/Vol] 4.7 mmol/L Normal 3.5 - 5.1 mmol/L [facility].; [email or web address], [employer]. Protein [Mass/Vol] 7.5 g/dL Normal 6.4 - 8.3 g/dL [place] [employer]) [facility].; [email or web address], [employer]. Sodium [Moles/Vol] 136 mmol/L Normal 136 - 145 mmol/L [place] [employer]) [facility], [facility].; [email or web address], [employer]. Triglyceride [Mass/Vol] 74 mg/dL Normal 0 - 150 mg/d L [place] [employer] [facility].; [email or web address], [employer]. Urea nitrogen [Mass/Vol] 14 mg/dL Normal 6 - 20 mg/d L [place] [employer]) [facility].; [email or web address], [employer]. Urea nitrogen/Creatinine [Mass ratio] 14 {ratio} Normal 0 - 30 {ratio} [place] [employer].; [employer], [employer]. No Panel Informationon 12-19 AGE 51 {years} Normal [place] [employer].; [email or web address], [employer]. Laboratory - Chemistry and C hemistry - challengeon 08-24-2015 Albumin [Mass/Vol] 4.8 g/dL Normal 3.4 - 4.8 g/dL [facility].; [facility]. Albumin [Mass/Vol] 1.8 g/dL Abnormal 0.9 - 1.6 [facility].; [facility]. ALP [Catalytic activity/Vol] 68 U/L Normal 38 - 126 U/L [facility].; [facility]. ALT [Catalytic activity/Vol] 24 U/L Normal 10 - 40 U/L [facility].; [facility]. Anion gap [Moles/Vol] 8 mmol/L Abnormal 10 - 2 0 mmol/L [facility].; [facility], [facility]. AST [Catalytic activity/Vol] 49 U/L Abnormal 13 - 39 U/L [facility]; [facility], [facility]. Bilirubin [Mass/Vol] 1.3 mg/dL Normal 0.0 - 1 .5 mg/dL [facility].; [facility], [facility] Calcium [Mass/Vol] 10.1 mg/dL Normal 8.6 - 10. 2 mg/dL [facility].; [facility], [facility]. Chloride [Moles/Vol] 104 mmol/L Normal 98 - 10 7 mmol/L [facility]; [facility], [facility]. Cholesterol [Mass/Vol] 159 mg/dL Normal 0 - 200 mg/dL [facility].; [facility], [facility]. Cholesterol in HDL [Mass or moles/Vol] 45 mg/dL Normal 40 - 60 mg/dL [facility].; [facility]. Cholesterol in LDL [Mass/Vol] 96 mg/dL Normal 0 - 129 mg/dL [facility].; [facility], [facility] Cholesterol.total/Choles terol in HDL [Mass ratio] 3.5 {ratio} Normal 0.0 - 5.0 [facility]; [facility], [facility] CO2 [Moles/Vol] 29.0 mmol/L Normal 13.0 - 29.0 mmol/L [facility].; [facility], [facility] Comprehensive metabolic 2000 panel CMP with eGFR Normal [facility]; [employer] [facility] [employer] Creatinine [Mass/Vol] 0.9 mg/dL Normal 0.7 - 1.3 mg/dL [place] [employer]) [facility].; [email or web address], [employer]. GFR/1.73 sq M.predicted among blacks MDRD (S/P/Bld) [Vol rate/Area] mL/min/{1.73_m2} Normal 60 - 999 {ML/MINUTE} [facility] [place] [employer]) [facility], [facility]. GFR/1.73 sq M.predicted MDRD (S/P/Bld) [Vol rate/Area] mL/min/{1.73_m2} Normal 60 - 999 {ML/MINUTE} [place] [employer]) [facility] [employer].; [email or web address], [employer]. Globulin (S) [Mass/Vol] 2.7 g/dL Normal 1.5 - 3.8 g/dL [place] [employer]) [facility].; [email or web address], [employer]. Glucose [Mass/Vol] 100 mg/dL Normal 74 - 106 mg/dL [place] [email or web address], [employer]. Lipid 1996 panel LIPID PROFILE Normal [facility] [employer]) [facility].; [email or web address], [employer]. Potassium [Moles/Vol] 4.5 mmol/L Normal 3.5 - 5.1 mmol/L [place] [employer] [email or web address], [employer]. Protein [Mass/Vol] 7.5 g/dL Normal 6.4 - 8.3 g/dL [place] [employer]) [facility], [employer].; [email or web address], [employer]. Sodium [Moles/Vol] 136 mmol/L Normal 136 - 145 mmol/L [place] [employer].; [email or web address], [employer]. Triglyceride [Mass/Vol] 90 mg/dL Normal 0 - 150 mg/d L [email or web address], [employer]. Urea nitrogen [Mass/Vol] 13 mg/dL Normal 6 - 20 mg/d L [email or web address], [employer]. Urea nitrogen/Creatinine [Mass ratio] 14 {ratio} Normal 0 - 30 {ratio} [email or web address].; [email or web address], [employer]. No Panel Informationon 08-24 AGE 50 {years} Normal [email or web address] Laboratory - Chemistry and C hemistry - challengeon 01-19-2015 Cholesterol [Mass/Vol] 229 mg/dL Abnormal 0 - 200 mg/dL [facility]; [facility] Cholesterol in HDL [Mass or moles/Vol] 38 mg/dL Abnormal 40 - 60 mg/dL [facility]; [facility] Cholesterol in LDL [Mass/Vol] 169 mg/dL Abnormal 0 - 129 mg/dL [facility].; [facility] Cholesterol.total/Choles terol in HDL [Mass ratio] 6.0 {ratio} Abnormal 0.0 - 5.0 [facility]; [facility] Lipid 1996 panel LIPID PROFILE Normal [facility]; [facility] Triglyceride [Mass/Vol] 112 mg/dL Normal 0 - 150 mg/d L [facility]; [facility] Laboratory - Chemistry and C hemistry - challengeon 09-28-2013 Albumin [Mass/Vol] 4.9 g/dL Normal 3.6 - 5.1 g/dL [facility]; [facility] Albumin/Globulin [Mass ratio] 1.7 {ratio} Normal 1.0 - 2.5 [facility]; [facility] ALP [Catalytic activity/Vol] 84 U/L Normal 40 - 115 U/L [facility]; [facility], [facility]. ALT [Catalytic activity/Vol] 19 U/L Normal 9 - 46 U/L [facility]; [facility]. AST [Catalytic activity/Vol] 48 U/L Abnormal 10 - 35 U/L [facility].; [facility], [facility]. Bilirubin [Mass/Vol] 1.1 mg/dL Normal 0.2 - 1 .2 mg/dL [facility]; [facility], [facility] Calcium [Mass/Vol] 10.5 mg/dL Abnormal 8.6 - 10. 3 mg/dL [facility]; [facility] Chloride [Moles/Vol] 104 mmol/L Normal 98 - 11 0 mmol/L [facility]; [facility], [facility]. Cholesterol [Mass/Vol] 268 mg/dL Abnormal 125 - 200 mg/dL [facility], [facility].; [facility], [facility]. Cholesterol in HDL [Mass/Vol] 55 mg/dL Normal [facility].; [facility], [facility]. Cholesterol in LDL [Mass/Vol] 194 mg/dL Abnormal [facility], [facility].; [facility], [facility]. Cholesterol non HDL [Mass/Vol] 212 mg/dL Abnormal [facility].; [facility], [facility]. Cholesterol.total/Choles terol in HDL [Mass ratio] 4.9 {ratio} Normal [facility].; [facility], [facility] CO2 [Moles/Vol] 25 mmol/L Normal 19 - 30 mmol/L [facility].; [facility], [facility]. Creatinine [Mass/Vol] 0.97 mg/dL Normal 0.70 - 1.33 mg/dL [facility], [facility].; [facility], [facility]. GFR/1.73 sq M.predicted among blacks MDRD (S/P/Bld) [Vol rate/Area] 105 {ML/MIN/1.73M2} Normal [facility], [facility].; [facility], [facility]. GFR/1.73 sq M.predicted MDRD (S/P/Bld) [Vol rate/Area] 91 {ML/MIN/1.73M2} Normal [facility], [facility].; [facility], [facility]. Globulin (S) [Mass/Vol] 3.0 g/dL Normal 1.9 - 3.7 g/dL [facility], [facility].; [facility], [facility]. Glucose [Mass/Vol] 88 mg/dL Normal 65 - 99 mg/dL [facility], [facility]. Potassium [Moles/Vol] 5.0 mmol/L Normal 3.5 - 5.3 mmol/L [facility], [facility].; [facility], [facility]. Protein [Mass/Vol] 7.9 g/dL Normal 6.1 - 8.1 g/dL [facility], [facility].; [facility], [facility]. Sodium [Moles/Vol] 138 mmol/L Normal 135 - 146 mmol/L [facility], [facility].; [facility], [facility]. Triglyceride [Mass/Vol] 95 mg/dL Normal [facility].; [facility], [facility]. Urea nitrogen [Mass/Vol] 13 mg/dL Normal 7 - 25 mg/d L [facility], [facility].; [facility], [facility] Urea nitrogen/Creatinine [Mass ratio] 13.7 mg/mg Normal 6 - 22 [facility].; [facility], [facility] Laboratory - Chemistry and C hemistry - challengeon 10-12-2011 Albumin [Mass/Vol] 4.8 g/dL Normal 3.6 - 5.1 g/dL [facility], [facility].; [facility], [facility]. Albumin/Globulin [Mass ratio] 1.6 {ratio} Normal 1.0 - 2.1 [facility], [facility].; [facility]. ALP [Catalytic activity/Vol] 88 U/L Normal 40 - 115 U/L [facility].; [facility], [facility]. ALT [Catalytic activity/Vol] 17 U/L Normal 9 - 60 U/L [facility].; [place] [employer]) [facility], [facility]. AST [Catalytic activity/Vol] 50 U/L Abnormal 10 - 40 U/L [facility].; [place] [employer]) [facility], [facility]. Bilirubin [Mass/Vol] 0.9 mg/dL Normal 0.2 - 1 .2 mg/dL [facility], [facility].; [facility], [facility]. Calcium [Mass/Vol] 10.1 mg/dL Normal 8.6 - 10. 3 mg/dL [facility], [facility].; [place] [employer]) [facility], [facility]. Chloride [Moles/Vol] 102 mmol/L Normal 98 - 11 0 mmol/L [facility], [facility].; [place] [employer]) [facility], [facility]. Cholesterol [Mass/Vol] 215 mg/dL Abnormal 125 - 200 mg/dL [facility], [facility].; [place] [employer]) [facility], [facility]. Cholesterol in HDL [Mass/Vol] 42 mg/dL Normal [facility], [facility].; [place] [employer], [facility]. Cholesterol in LDL [Mass/Vol] 158 mg/dL Abnormal [facility].; [facility], [facility]. Cholesterol.total/Choles terol in HDL [Mass ratio] 5.1 {ratio} Abnormal [facility], [facility].; [facility], [facility]. CO2 [Moles/Vol] 26 mmol/L Normal 21 - 33 mmol/L [facility], [facility].; [facility], [facility]. Creatinine [Mass/Vol] 0.88 mg/dL Normal 0.60 - 1.35 mg/dL [facility], [facility].; [facility], [facility]. GFR/1.73 sq M.predicted among blacks MDRD (S/P/Bld) [Vol rate/Area] 118 {ML/MIN/1.73M2} Normal [facility], [facility].; [facility], [facility]. GFR/1.73 sq M.predicted MDRD (S/P/Bld) [Vol rate/Area] 102 {ML/MIN/1.73M2} Normal [facility], [facility].; [facility], [facility]. Globulin (S) [Mass/Vol] 2.9 g/dL Normal 2.1 - 3.7 g/dL [facility], [facility].; [facility], [facility]. Glucose [Mass/Vol] 82 mg/dL Normal 65 - 99 mg/dL [facility].; [facility], [facility]. Potassium [Moles/Vol] 5.1 mmol/L Normal 3.5 - 5.3 mmol/L [facility], [facility].; [facility], [facility]. Protein [Mass/Vol] 7.7 g/dL Normal 6.2 - 8.3 g/dL [facility], [facility].; [facility], [facility]. Sodium [Moles/Vol] 136 mmol/L Normal 135 - 146 mmol/L [facility], [facility].; [place] [employer]) [facility], [facility]. Triglyceride [Mass/Vol] 77 mg/dL Normal H [facility], [facility].; [place] [employer]) [facility], [facility]. Urea nitrogen [Mass/Vol] 16 mg/dL Normal 7 - 25 mg/d L [facility], [facility].; [facility], [facility]. Urea nitrogen/Creatinine [Mass ratio] 18.3 mg/mg Normal 6 - 22 [facility].; [facility], [place] Vital Signs Date Time Vital Sign Value Performing Clinician Facility 01-28-2025 07:05-0400 Body height 177.8 cm Wilfredo Reno MD Work Phone: [email or web address]. 01-28-2025 07:05-0400 Body mass index (BMI) [Ratio] 29.41 kg/m2 Wilfredo Reno MD Work Phone: [email or web address]. 01-28-2025 07:05-0400 Body surface area Derived from formula 2.11 m2 Wilfredo Reno MD Work Phone: [email or web address] 01-28-2025 07:05-0400 Body weight 92.99 kg Wilfredo Reno MD Work Phone: [email or web address]. 01-28-2025 07:05-0400 Diastolic blood pressure 84 mm[Hg] Wilfredo Reno MD Work Phone: [email or web address]. Comment on above: Patient Position: Sitting; Cuff Location : Left Arm; Cuff Size: Standard 01-28-2025 07:05-0400 Heart rate 77 /min Wilfredo Reno MD Work Phone: [email or web address]. Comment on above: Pattern: Regular 01-28-2025 07:05-0400 Systolic blood pressure 144 mm[Hg] Wilfredo Reno MD Work Phone: [email or web address]. Comment on above: Patient Position: Sitting; Cuff Location : Left Arm; Cuff Size: Standard 12-24-2024 08:27-0400 Body height 180.[address] Wilfredo Reno MD Work Phone: [facility] 12-24-2024 08:27-0400 Body mass index (BMI) [Ratio] 26.9 kg/m2 Dr. Wilfredo Reno MD Work Phone: [facility] 12-24-2024 08:27-0400 Body weight 87.[address] Wilfredo Reno MD Work Phone: [facility] 12-24-2024 08:27-0400 Diastolic blood pressure 87 mm[Hg] Dr. Wilfredo Reno MD Work Phone: [facility] 12-24-2024 08:27-0400 Heart rate 76 /min Dr. Wilfredo Reno MD Work Phone: [facility] 12-24-2024 08:27-0400 Respiratory rate 18 /min Dr. Wilfredo Reno MD Work Phone: [facility] 12-24-2024 08:27-0400 Systolic blood pressure 122 mm[Hg] Dr. Wilfredo Reno MD Work Phone: [facility] 11-12-2024 11:22-0400 Body height 177.8 cm Abdirahman Forrester OPERATIONS RESEARCH SCIENTIST [facility], [facility].; [facility], [facility]. 11-12-2024 11:22-0400 Body mass index (BMI) [Ratio] 28.84 kg/m2 Abdirahman Usama [facility], [facility].; [facility], [facility]. 11-12-2024 11:22-0400 Body surface area Derived from formula 2.09 m2 Abdirahman Forrester OPERATIONS RESEARCH SCIENTIST [facility], [facility].; [facility], [facility]. 11-12-2024 11:22-0400 Body weight 91.17 kg Abdirahman Usama [facility], [facility].; [facility], [facility]. 11-12-2024 11:22-0400 Diastolic blood pressure 81 mm[Hg] Abdirahman Forrester OPERATIONS RESEARCH SCIENTIST [facility], [facility].; [facility], [facility]. Comment on above: Patient Position: Sitting; Cuff Location : Left Arm; Cuff Size: Standard 11-12-2024 11:22-0400 Heart rate 108 /min Abdirahman Forrester OPERATIONS RESEARCH SCIENTIST [facility], [facility].; [place] [employer]) [facility] Comment on above: Pattern: Regular 11-12-2024 11:22-0400 Systolic blood pressure 152 mm[Hg] Abdirahman Forrester OPERATIONS RESEARCH SCIENTIST [facility], [facility]. Comment on above: Patient Position: Sitting; Cuff Location : Left Arm; Cuff Size: Standard 09-17-2024 11:18-0500 Body height 177.8 cm Taylor Daily LPN [facility], [facility].; [employer]) [facility], [facility]. 09-17-2024 11:18-0500 Body mass index (BMI) [Ratio] 29.84 kg/m2 Taylor Daily LPN [facility], [facility].; [place] [employer]) [facility], [facility]. 09-17-2024 11:18-0500 Body surface area Derived from formula 2.12 m2 Taylor Daily LPN [facility], [facility].; [employer] [facility], [facility]. 09-17-2024 11:18-0500 Body weight 94.35 kg Taylor Daily LPN [facility], [facility].; [employer]) [facility], [facility]. 09-17-2024 11:18-0500 Diastolic blood pressure 88 mm[Hg] Taylor Daily LPN [facility], [facility].; [email or web address], [employer]. Comment on above: Patient Position: Sitting; Cuff Location : Left Arm; Cuff Size: Standard 09-17-2024 11:18-0500 Heart rate 67 /min Taylor Daily LPN [facility], [facility].; [email or web address], [employer]. Comment on above: Pattern: Regular 09-17-2024 11:18-0500 Systolic blood pressure 138 mm[Hg] Taylor Daily LPN [facility], [facility].; [email or web address], [employer]. Comment on above: Patient Position: Sitting; Cuff Location : Left Arm; Cuff Size: Standard 07-23-2024 07:29-0500 Body height 177.8 cm Wilfredo Reno MD Work Phone: [place] [employer]) [facility], [facility].; [email or web address] 07-23-2024 07:29-0500 Body mass index (BMI) [Ratio] 29.27 kg/m2 Wilfredo Reno MD Work Phone: [place] [employer]) [facility], [employer].; [email or web address]. 07-23-2024 07:29-0500 Body surface area Derived from formula 2.11 m2 Wilfredo Reno MD Work Phone: [place] [employer]) [facility] [employer].; [employer]. 07-23-2024 07:29-0500 Body weight 92.53 kg Wilfredo Reno MD Work Phone: [place] [employer].; [email or web address]. 07-23-2024 07:29-0500 Diastolic blood pressure 78 mm[Hg] Wilfredo Reno MD Work Phone: [facility] [employer]. Comment on above: Patient Position: Sitting; Cuff Location : Left Arm; Cuff Size: Standard 07-23-2024 07:29-0500 Heart rate 77 /min Wilfredo Reno MD Work Phone: [employer]. Comment on above: Pattern: Regular 07-23-2024 07:29-0500 Systolic blood pressure 130 mm[Hg] Wilfredo Reno MD Work Phone: [employer]. Comment on above: Patient Position: Sitting; Cuff Location : Left Arm; Cuff Size: Standard 04-02-2024 09:43-0400 Body height 177.8 cm Taylor Daily LPN [facility].; [employer]. 04-02-2024 09:43-0400 Body mass index (BMI) [Ratio] 28.84 kg/m2 Taylor Daily LPN [facility].; [employer] 04-02-2024 09:43-0400 Body surface area Derived from formula 2.09 m2 Taylor Daily LPN [facility].; [employer]. 04-02-2024 09:43-0400 Body temperature 98.2 [degF] Taylor Daily LPN [facility], [facility].; [employer]. Comment on above: Method: Tympanic 04-02-2024 09:43-0400 Body weight 91.17 kg Taylor Daily LPN [facility] [employer] 04-02-2024 09:43-0400 Diastolic blood pressure 68 mm[Hg] Taylor Daily LPN [facility] [email or web address]. Comment on above: Patient Position: Sitting; Cuff Location : Left Arm; Cuff Size: Standard 04-02-2024 09:43-0400 Heart rate 106 /min Taylor Daily LPN [facility].; [place] [employer]) [facility]. Comment on above: Pattern: Regular 04-02-2024 09:43-0400 Inhaled oxygen concentration 21 % Taylor Daily LPN [facility].; [employer]. Comment on above: Room air 04-02-2024 09:43-0400 SaO2% (BldA) [Mass fraction] 96 % Taylor Daily LPN [facility].; [employer]. 04-02-2024 09:43-0400 Systolic blood pressure 120 mm[Hg] Taylor Daily LPN [facility].; [email or web address]. Comment on above: Patient Position: Sitting; Cuff Location : Left Arm; Cuff Size: Standard 01-02-2024 07:05-0400 Body height 177.8 cm Wilfredo Reno MD Work Phone: [facility].; [email or web address]. 01-02-2024 07:05-0400 Body mass index (BMI) [Ratio] 28.7 kg/m2 Wilfredo Reno MD Work Phone: [facility] [employer].; [place] [employer] [facility]. 01-02-2024 07:05-0400 Body surface area Derived from formula 2.09 m2 Wilfredo Reno MD Work Phone: [facility] [employer].; [employer] [facility]. 01-02-2024 07:05-0400 Body weight 90.72 kg Wilfredo Reno MD Work Phone: [employer].; [email or web address]. 01-02-2024 07:05-0400 Diastolic blood pressure 88 mm[Hg] Wilfredo Reno MD Work Phone: [employer].; [email or web address]. Comment on above: Patient Position: Sitting; Cuff Location : Left Arm; Cuff Size: Standard 01-02-2024 07:05-0400 Heart rate 72 /min Wilfredo Reno MD Work Phone: [facility], [facility].; [facility]. Comment on above: Pattern: Regular 01-02-2024 07:05-0400 Systolic blood pressure 142 mm[Hg] Wilfredo Reno MD Work Phone: [facility], [facility].; [facility]. Comment on above: Patient Position: Sitting; Cuff Location : Left Arm; Cuff Size: Standard 07-17-2023 07:27-0500 Body weight 92.08 kg Abdirahman Forrester OPERATIONS RESEARCH SCIENTIST [facility], [facility].; [facility], [facility]. 07-17-2023 07:27-0500 Diastolic blood pressure 79 mm[Hg] Abdirahmanjessica Forrester [facility], [facility].; [facility], [employer]. Comment on above: Patient Position: Sitting; Cuff Location : Left Arm; Cuff Size: Standard 07-17-2023 07:27-0500 Heart rate 74 /min Abdirahmanjessica Forrester [facility], [facility].; [place] [employer], [employer]. Comment on above: Pattern: Regular 07-17-2023 07:27-0500 Systolic blood pressure 133 mm[Hg] Abdirahman Usama OPERATIONS RESEARCH SCIENTIST [facility], [facility].; [place] [employer]) [facility], [employer]. Comment on above: Patient Position: Sitting; Cuff Location : Left Arm; Cuff Size: Standard 06-26-2023 09:54-0500 Body height 177.8 cm Taylor Daily LPN [facility], [facility].; [facility], [facility]. 06-26-2023 09:54-0500 Body mass index (BMI) [Ratio] 29.27 kg/m2 Taylor Daily LPN [facility], [facility].; [facility], [facility]. 06-26-2023 09:54-0500 Body surface area Derived from formula 2.11 m2 Taylor Daily LPN [facility], [facility].; [facility], [facility]. 06-26-2023 09:54-0500 Body temperature 97.5 [degF] Taylor Daily LPN [facility].; [facility], [facility]. Comment on above: Method: Tympanic 06-26-2023 09:54-0500 Body weight 92.53 kg Taylor Daily LPN [facility], [facility].; [employer]) [facility], [employer]. 06-26-2023 09:54-0500 Diastolic blood pressure 94 mm[Hg] Taylor Daily LPN [facility] [email or web address], [employer]. Comment on above: Patient Position: Sitting; Cuff Location : Left Arm; Cuff Size: Standard 06-26-2023 09:54-0500 Heart rate 82 /min Taylor Daily LPN [facility], [facility].; [email or web address], [employer]. Comment on above: Pattern: Regular 06-26-2023 09:54-0500 Inhaled oxygen concentration 20 % Taylor Daily LPN [facility], [facility].; [employer], [employer]. Comment on above: Room air 06-26-2023 09:54-0500 Inhaled oxygen concentration 21 % Taylor Daily LPN [facility], [employer].; [email or web address], [employer]. Comment on above: Room air 06-26-2023 09:54-0500 SaO2% (BldA) [Mass fraction] 97 % Taylor Daily LPN [facility], [facility].; [employer] [facility], [employer]. 06-26-2023 09:54-0500 Systolic blood pressure 137 mm[Hg] Taylor Daily LPN [facility], [facility].; [email or web address], [employer]. Comment on above: Patient Position: Sitting; Cuff Location : Left Arm; Cuff Size: Standard 04-11-2023 08:17-0400 Body height 177.8 cm Wilfredo Reno MD Work Phone: [facility].; [email or web address] 04-11-2023 08:17-0400 Body mass index (BMI) [Ratio] 28.84 kg/m2 Wilfredo Reno MD Work Phone: [facility].; [email or web address]. 04-11-2023 08:17-0400 Body surface area Derived from formula 2.09 m2 Wilfredo Reno MD Work Phone: [facility].; [email or web address] 04-11-2023 08:17-0400 Body weight 91.17 kg Wilfredo Reno MD Work Phone: [employer] 04-11-2023 08:17-0400 Diastolic blood pressure 78 mm[Hg] Wilfredo Reno MD Work Phone: [email or web address]. Comment on above: Patient Position: Sitting; Cuff Location : Left Arm; Cuff Size: Standard 04-11-2023 08:17-0400 Heart rate 97 /min Wilfredo Reno MD Work Phone: [employer]. Comment on above: Pattern: Regular 04-11-2023 08:17-0400 Systolic blood pressure 136 mm[Hg] Wilfredo Reno MD Work Phone: [employer]. Comment on above: Patient Position: Sitting; Cuff Location : Left Arm; Cuff Size: Standard 01-02-2023 07:37-0400 Body height 177.8 cm Wilfredo Reno MD Work Phone: [employer]. 01-02-2023 07:37-0400 Body mass index (BMI) [Ratio] 28.7 kg/m2 Wilfredo Reno MD Work Phone: [employer]. 01-02-2023 07:37-0400 Body surface area Derived from formula 2.09 m2 Wilfredo Reno MD Work Phone: [employer]. 01-02-2023 07:37-0400 Body weight 90.72 kg Wilfredo Reno MD Work Phone: [employer]. 01-02-2023 07:37-0400 Diastolic blood pressure 70 mm[Hg] Wilfredo Reno MD Work Phone: [employer]. Comment on above: Patient Position: Sitting; Cuff Location : Right Arm; Cuff Size: Standard 01-02-2023 07:37-0400 Heart rate 79 /min Wilfredo Reno MD Work Phone: [employer]. Comment on above: Pattern: Regular 01-02-2023 07:37-0400 Systolic blood pressure 122 mm[Hg] Wilfredo Reno MD Work Phone: [employer]. Comment on above: Patient Position: Sitting; Cuff Location : Right Arm; Cuff Size: Standard 2022 08:02-0500 Body height 177.8 cm Wilfredo Reno MD Work Phone: [employer] 2022 08:02-0500 Body mass index (BMI) [Ratio] 29.13 kg/m2 Wilfredo Reno MD Work Phone: [employer]. 2022 08:02-0500 Body surface area Derived from formula 2.1 m2 Wilfredo Reno MD Work Phone: [employer] 2022 08:02-0500 Body weight 92.08 kg Wilfredo Reno MD Work Phone: [employer] 2022 08:02-0500 Diastolic blood pressure 82 mm[Hg] Wilfredo Reno MD Work Phone: [employer]. Comment on above: Patient Position: Sitting; Cuff Location : Left Arm; Cuff Size: Standard 2022 08:02-0500 Heart rate 71 /min Wilfredo Reno MD Work Phone: [employer]. Comment on above: Pattern: Regular 2022 08:02-0500 Systolic blood pressure 126 mm[Hg] Wilfredo Reno MD Work Phone: [employer]; [facility]. Comment on above: Patient Position: Sitting; Cuff Location : Left Arm; Cuff Size: Standard 05-10-2022 16:30-0400 Body temperature 99 [degF] [facility] Work Phone: 05-10-2022 16:30-0400 Diastolic blood pressure 71 mm[Hg] [facility] Work Phone: 05-10-2022 16:30-0400 Heart rate 111 /min [facility] Work Phone: 05-10-2022 16:30-0400 Respiratory rate 18 /min [facility] Work Phone: 05-10-2022 16:30-0400 SaO2% (BldA) [Mass fraction] 95 % [facility] Work Phone: 05-10-2022 16:30-0400 Systolic blood pressure 123 mm[Hg] [facility] Work Phone: 05-10-2022 13:00-0400 Inhaled oxygen flow rate 4 L/min [facility] Work Phone: 05-10-2022 06:14-0400 Body height 180.34 cm [facility] Work Phone: 05-10-2022 06:14-0400 Body mass index (BMI) [Ratio] 27 kg/m2 [facility] Work Phone: 05-10-2022 06:14-0400 Body weight 87.9 kg [facility] Work Phone: 05-02-2022 08:23-0400 Body height 177.8 cm Taylor Mtz MA [facility], [facility].; [facility], [facility]. 05-02-2022 08:23-0400 Body mass index (BMI) [Ratio] 28.7 kg/m2 Taylor Mtz MA [facility], [facility].; [facility], [facility]. 05-02-2022 08:23-0400 Body surface area Derived from formula 2.09 m2 Taylor Mtz MA [facility], [facility].; [facility], [facility]. 05-02-2022 08:23-0400 Body weight 90.72 kg Taylor Mtz MA [facility], [facility].; [place] [employer] [facility], [facility]. 05-02-2022 08:23-0400 Diastolic blood pressure 89 mm[Hg] Taylor Mtz MA [facility], [facility].; [employer]) [facility], [employer]. Comment on above: Patient Position: Sitting; Cuff Location : Left Arm; Cuff Size: Standard 05-02-2022 08:23-0400 Heart rate 102 /min Taylor Mtz MA [facility], [facility].; [employer], [employer]. Comment on above: Pattern: Regular 05-02-2022 08:23-0400 Systolic blood pressure 128 mm[Hg] Taylor Mtz MA [facility], [facility].; [employer] Comment on above: Patient Position: Sitting; Cuff Location : Left Arm; Cuff Size: Standard 01-01-2022 07:50-0400 Body height 177.8 cm Natasha Lilliam [facility], [facility].; [employer] 01-01-2022 07:50-0400 Body mass index (BMI) [Ratio] 28.27 kg/m2 [facility] Lilliam [facility], [facility].; [employer] [facility], [facility] 01-01-2022 07:50-0400 Body surface area Derived from formula 2.07 m2 [facility] Lilliam [facility], [facility].; [place] [employer]) [facility], [facility]. 01-01-2022 07:50-0400 Body weight 89.36 kg [facility] Lilliam [facility], [facility].; [email or web address], [employer]. 01-01-2022 07:50-0400 Diastolic blood pressure 90 mm[Hg] NatashaKaylin Shahey [facility], [facility].; [email or web address], [employer]. Comment on above: Patient Position: Sitting; Cuff Location : Left Arm; Cuff Size: Large 01-01-2022 07:50-0400 Heart rate 76 /min Natasha Lilliam [facility], [facility].; [email or web address]. Comment on above: Pattern: Regular 01-01-2022 07:50-0400 Systolic blood pressure 138 mm[Hg] Antoinette Vyas ALAN [email or web address]. Comment on above: Patient Position: Sitting; Cuff Location : Left Arm; Cuff Size: Large 03-06-2021 09:12-0400 Body height 177.8 cm Wilfredo Reno MD Work Phone: [employer]; [employer]. 03-06-2021 09:12-0400 Body mass index (BMI) [Ratio] 28.7 kg/m2 Wilfredo Reno MD Work Phone: [email or web address]. 03-06-2021 09:12-0400 Body surface area Derived from formula 2.09 m2 Wilfredo Reno MD Work Phone: [employer] 03-06-2021 09:12-0400 Body weight 90.72 kg Wilfredo Reno MD Work Phone: [employer]. 03-06-2021 09:12-0400 Diastolic blood pressure 87 mm[Hg] Wilfredo Reno MD Work Phone: [employer]. Comment on above: Patient Position: Sitting; Cuff Location : Left Arm; Cuff Size: Large 03-06-2021 09:12-0400 Heart rate 73 /min Wilfredo Reno MD Work Phone: [employer]. Comment on above: Pattern: Regular 03-06-2021 09:12-0400 Systolic blood pressure 132 mm[Hg] Wilfredo Reno MD Work Phone: [employer]. Comment on above: Patient Position: Sitting; Cuff Location : Left Arm; Cuff Size: Large 09-05-2020 08:11-0500 Body height 177.8 cm Wilfredo Reno MD Work Phone: [employer]. 09-05-2020 08:11-0500 Body mass index (BMI) [Ratio] 29.41 kg/m2 Wilfredo Reno MD Work Phone: [email or web address]. 09-05-2020 08:11-0500 Body surface area Derived from formula 2.11 m2 Wilfredo Reno MD Work Phone: [email or web address]. 09-05-2020 08:11-0500 Body weight 92.99 kg Wilfredo Reno MD Work Phone: [employer] 09-05-2020 08:11-0500 Diastolic blood pressure 80 mm[Hg] Wilfredo Reno MD Work Phone: [employer]. Comment on above: Patient Position: Sitting; Cuff Location : Left Arm; Cuff Size: Large 09-05-2020 08:11-0500 Heart rate 73 /min Wilfredo Reno MD Work Phone: [employer]. Comment on above: Pattern: Regular 09-05-2020 08:11-0500 Systolic blood pressure 138 mm[Hg] Wilfredo Reno MD Work Phone: [employer]. Comment on above: Patient Position: Sitting; Cuff Location : Left Arm; Cuff Size: Large 02-22-2020 08:05-0400 Body height 177.8 cm Teresita Ryan RN [email or web address] 02-22-2020 08:05-0400 Body mass index (BMI) [Ratio] 29.13 kg/m2 Teresita Ryan RN [email or web address]. 02-22-2020 08:05-0400 Body surface area Derived from formula 2.1 m2 Teresita Ryan RN [email or web address]. 02-22-2020 08:05-0400 Body weight 92.08 kg Teresita Ryan RN [place] [employer] [facility].; [employer] [facility]. 02-22-2020 08:05-0400 Diastolic blood pressure 77 mm[Hg] [facility]resita [facility].; [email or web address]. Comment on above: Patient Position: Sitting; Cuff Location : Left Arm; Cuff Size: Standard 02-22-2020 08:05-0400 Heart rate 62 /min Teresita Ryan RN [facility].; [email or web address]. Comment on above: Pattern: Regular 02-22-2020 08:05-0400 Systolic blood pressure 120 mm[Hg] Teresita Ryan RN [place] [employer]. Comment on above: Patient Position: Sitting; Cuff Location : Left Arm; Cuff Size: Standard 08-24-2019 11:29-0500 Body height 177.8 cm Wilfredo Reno MD Work Phone: [place] [employer].; [email or web address] 08-24-2019 11:29-0500 Body mass index (BMI) [Ratio] 29.41 kg/m2 Wilfredo Reno MD Work Phone: [email or web address] 08-24-2019 11:29-0500 Body surface area Derived from formula 2.11 m2 Wilfredo Reno MD Work Phone: [email or web address] 08-24-2019 11:29-0500 Body weight 92.99 kg Wilfredo Reno MD Work Phone: [email or web address].; [email or web address]. 08-24-2019 11:29-0500 Diastolic blood pressure 76 mm[Hg] Wilfredo Reno MD Work Phone: [email or web address].; [email or web address]. Comment on above: Patient Position: Sitting; Cuff Location : Left Arm; Cuff Size: Large 08-24-2019 11:29-0500 Heart rate 82 /min Wilfredo Reno MD Work Phone: [place] [employer]. Comment on above: Pattern: Regular 08-24-2019 11:29-0500 Systolic blood pressure 124 mm[Hg] Wilfredo Reno MD Work Phone: [place] [employer]) [facility], [employer]. Comment on above: Patient Position: Sitting; Cuff Location : Left Arm; Cuff Size: Large 03-18-2019 08:14-0400 Body height 177.8 cm Antoinette Vyas [facility] [employer], [employer]. 03-18-2019 08:14-0400 Body mass index (BMI) [Ratio] 28.84 kg/m2 Antoinette Vyas [email or web address], [employer].; [employer]. 03-18-2019 08:14-0400 Body surface area Derived from formula 2.09 m2 Antoinette Vyas [facility] [employer]) [facility], [employer].; [employer], [employer]. 03-18-2019 08:14-0400 Body weight 91.17 kg Antoinette Vyas [facility] [employer]) [facility], [employer].; [employer], [employer]. 03-18-2019 08:14-0400 Diastolic blood pressure 77 mm[Hg] Antoinette Vyas OPERATIONS RESEARCH SCIENTIST [employer] [facility], [employer].; [employer]. Comment on above: Patient Position: Sitting; Cuff Location : Left Arm; Cuff Size: Large 03-18-2019 08:14-0400 Heart rate 92 /min Antoinette Vyas OPERATIONS RESEARCH SCIENTIST [employer]) [facility], [employer].; [employer]. Comment on above: Pattern: Regular 03-18-2019 08:14-0400 Systolic blood pressure 127 mm[Hg] Antoinette Vyas OPERATIONS RESEARCH SCIENTIST [email or web address], [employer].; [employer]. Comment on above: Patient Position: Sitting; Cuff Location : Left Arm; Cuff Size: Large 02-11-2019 07:02-0400 Body height 177.8 cm Wilfredo Reno MD Work Phone: [place] [employer], [employer].; [employer]. 02-11-2019 07:02-0400 Body mass index (BMI) [Ratio] 28.41 kg/m2 Wilfredo Reno MD Work Phone: [employer]. 02-11-2019 07:02-0400 Body surface area Derived from formula 2.08 m2 Wilfredo Reno MD Work Phone: [employer]. 02-11-2019 07:02-0400 Body weight 89.81 kg Wilfredo Reno MD Work Phone: [employer]. 02-11-2019 07:02-0400 Diastolic blood pressure 88 mm[Hg] Wilfredo Reno MD Work Phone: [employer]. Comment on above: Patient Position: Sitting; Cuff Location : Left Arm; Cuff Size: Large 02-11-2019 07:02-0400 Heart rate 72 /min Wilfredo Reno MD Work Phone: [employer]; [employer]. Comment on above: Pattern: Regular 02-11-2019 07:02-0400 Systolic blood pressure 132 mm[Hg] Wilfredo Reno MD Work Phone: [employer]; [employer]. Comment on above: Patient Position: Sitting; Cuff Location : Left Arm; Cuff Size: Large 07-25-2018 07:26-0500 Body height 177.8 cm Teresita Ryan RN [employer] 07-25-2018 07:26-0500 Body mass index (BMI) [Ratio] 28.7 kg/m2 Teresita Ryan RN [employer]. 07-25-2018 07:26-0500 Body surface area Derived from formula 2.09 m2 Teresita Ryan RN [employer]. 07-25-2018 07:26-0500 Body weight 90.72 kg Teresita Ryan RN [employer]. 07-25-2018 07:26-0500 Diastolic blood pressure 94 mm[Hg] Teresita Ryan RN [facility] [employer], [employer]. Comment on above: Patient Position: Sitting; Cuff Location : Left Arm; Cuff Size: Standard 07-25-2018 07:26-0500 Heart rate 74 /min Teresita Ryan RN [facility] [employer] Comment on above: Pattern: Regular 07-25-2018 07:26-0500 Systolic blood pressure 158 mm[Hg] Teresita Ryan RN [facility] [employer], [employer] Comment on above: Patient Position: Sitting; Cuff Location : Left Arm; Cuff Size: Standard 04-15-2018 08:24-0400 Body height 180.97 cm Natasha [place] ALAN [facility] [employer], [employer] 04-15-2018 08:24-0400 Body mass index (BMI) [Ratio] 27.14 kg/m2 NatashaKaylin Vyas OPERATIONS RESEARCH SCIENTIST [facility] [employer], [employer] 04-15-2018 08:24-0400 Body surface area Derived from formula 2.1 m2 [facility] Lilliam OPERATIONS RESEARCH SCIENTIST [facility] [employer], [employer] 04-15-2018 08:24-0400 Body weight 88.91 kg NatashaKaylin Vyas OPERATIONS RESEARCH SCIENTIST [facility] [employer], [employer] 04-15-2018 08:24-0400 Diastolic blood pressure 111 mm[Hg] NatahsaKaylin Vyas LPN [facility] [employer], [employer]. Comment on above: Patient Position: Sitting; Cuff Location : Left Arm; Cuff Size: Large 04-15-2018 08:24-0400 Heart rate 77 /min NatashaKaylin Vyas OPERATIONS RESEARCH SCIENTIST [facility] [employer], [employer] Comment on above: Pattern: Regular 04-15-2018 08:24-0400 Systolic blood pressure 164 mm[Hg] Antoinette Vyas LPN [facility] [employer], [employer] Comment on above: Patient Position: Sitting; Cuff Location : Left Arm; Cuff Size: Large 06-08-2018 06:51-0400 Body height 180.97 cm Wilfredo Reno MD Work Phone: [employer]; [employer]. 01-17-2018 06:51-0400 Body mass index (BMI) [Ratio] 27.42 kg/m2 Wilfredo Reno MD Work Phone: [employer] 01-17-2018 06:51-0400 Body surface area Derived from formula 2.11 m2 Wilfredo Reno MD Work Phone: [employer]. 01-17-2018 06:51-0400 Body weight 89.81 kg Wilfredo Reno MD Work Phone: [employer]. 01-17-2018 06:51-0400 Diastolic blood pressure 80 mm[Hg] Wilfredo Reno MD Work Phone: [employer]. Comment on above: Patient Position: Sitting; Cuff Location : Right Arm; Cuff Size: Standard 01-17-2018 06:51-0400 Heart rate 67 /min Wilfredo Reno MD Work Phone: [employer]. Comment on above: Pattern: Regular 01-17-2018 06:51-0400 Systolic blood pressure 136 mm[Hg] Wilfredo Reno MD Work Phone: [employer]. Comment on above: Patient Position: Sitting; Cuff Location : Right Arm; Cuff Size: Standard 10-08-2017 15:56-0500 Body height 180.97 cm Teresita Ryan RN [email or web address]. 10-08-2017 15:56-0500 Body mass index (BMI) [Ratio] 27.56 kg/m2 Teresita Ryan RN [email or web address]. 10-08-2017 15:56-0500 Body surface area Derived from formula 2.11 m2 Teresita Ryan RN [email or web address]. 10-08-2017 15:56-0500 Body temperature 98.1 [degF] Teresita Ryan RN [facility] [employer]. Comment on above: Method: Tympanic 10-08-2017 15:56-0500 Body weight 90.27 kg Teresita Ryan RN [email or web address] 10-08-2017 15:56-0500 Diastolic blood pressure 80 mm[Hg] Teresita Ryan RN [email or web address]. Comment on above: Patient Position: Sitting; Cuff Location : Left Arm; Cuff Size: Standard 10-08-2017 15:56-0500 Heart rate 77 /min Teresita Ryan RN [email or web address]. Comment on above: Pattern: Regular 10-08-2017 15:56-0500 Inhaled oxygen concentration 20 % Teresita Ryan RN [email or web address]. Comment on above: Room air 10-08-2017 15:56-0500 Inhaled oxygen concentration 21 % Teresita Ryan RN [email or web address]. Comment on above: Room air 10-08-2017 15:56-0500 SaO2% (BldA) [Mass fraction] 98 % Teresita Ryan RN [facility] [employer] 10-08-2017 15:56-0500 Systolic blood pressure 129 mm[Hg] Teresita Ryan RN [email or web address]. Comment on above: Patient Position: Sitting; Cuff Location : Left Arm; Cuff Size: Standard 07-15-2017 14:59-0500 Body height 180.97 cm Ely Metz LPN [employer] [facility], Inc.; [employer] 07-15-2017 14:59-0500 Body mass index (BMI) [Ratio] 26.87 kg/m2 Ely Metz LPN [email or web address]. 07-15-2017 14:59-0500 Body surface area Derived from formula 2.09 m2 Ely Metz LPN [email or web address] 07-15-2017 14:59-0500 Body weight 88 kg Ely Metz LPN [email or web address], [employer]. 07-15-2017 14:59-0500 Diastolic blood pressure 66 mm[Hg] Ely Metz LPN [email or web address]. Comment on above: Patient Position: Sitting; Cuff Location : Left Arm; Cuff Size: Standard 07-15-2017 14:59-0500 Heart rate 74 /min Ely Metz LPN [email or web address], [employer].; [employer]. Comment on above: Pattern: Regular 07-15-2017 14:59-0500 Systolic blood pressure 105 mm[Hg] Ely Metz LPN [email or web address]. Comment on above: Patient Position: Sitting; Cuff Location : Left Arm; Cuff Size: Standard 01-02-2017 06:57-0400 Body height 177.8 cm Wilfredo Reno MD Work Phone: [employer] 01-02-2017 06:57-0400 Body mass index (BMI) [Ratio] 27.84 kg/m2 Wilfredo Reno MD Work Phone: [employer]. 01-02-2017 06:57-0400 Body surface area Derived from formula 2.06 m2 Wilfredo Reno MD Work Phone: [employer]. 01-02-2017 06:57-0400 Body weight 88 kg Wilfredo Reno MD Work Phone: [employer]. 01-02-2017 06:57-0400 Diastolic blood pressure 88 mm[Hg] Wilfredo Reno MD Work Phone: [employer]. Comment on above: Patient Position: Sitting; Cuff Location : Left Arm; Cuff Size: Standard 01-02-2017 06:57-0400 Heart rate 89 /min Wilfredo Reno MD Work Phone: [place] [employer]. Comment on above: Pattern: Regular 01-02-2017 06:57-0400 Systolic blood pressure 140 mm[Hg] Wilfredo Reno MD Work Phone: [email or web address]. Comment on above: Patient Position: Sitting; Cuff Location : Left Arm; Cuff Size: Standard 12-04-2016 13:12-0400 Body height 177.8 cm Rosita Willett LPN [email or web address] 12-04-2016 13:12-0400 Body mass index (BMI) [Ratio] 27.12 kg/m2 Rosita Willett [facility] [employer] [employer], [employer] 12-04-2016 13:12-0400 Body surface area Derived from formula 2.04 m2 Rosita Willett LPN [email or web address], [employer] 12-04-2016 13:12-0400 Body temperature 97.9 [degF] Rosita Willett OPERATIONS RESEARCH SCIENTIST [employer]. Comment on above: Method: Tympanic 12-04-2016 13:12-0400 Body weight 85.73 kg Rosita Willett LPN [email or web address], [employer] 12-04-2016 13:12-0400 Diastolic blood pressure 65 mm[Hg] Rosita Willett LPN [employer]. Comment on above: Patient Position: Sitting; Cuff Location : Left Arm; Cuff Size: Standard 12-04-2016 13:12-0400 Heart rate 84 /min Rosita Willett LPN [email or web address]. Comment on above: Pattern: Regular 12-04-2016 13:12-0400 Inhaled oxygen concentration 20 % Rosita Willett LPN [email or web address] [facility], [employer]. Comment on above: Room air 12-04-2016 13:12-0400 Inhaled oxygen concentration 21 % Rosita Willett LPN [facility] [place] [employer] [facility], [employer]. Comment on above: Room air 12-04-2016 13:12-0400 SaO2% (BldA) [Mass fraction] 97 % Rosita Willett LPN [facility] [employer], [employer]. 12-04-2016 13:12-0400 Systolic blood pressure 95 mm[Hg] Rosita Willett LPN [facility] [employer], [employer]. Comment on above: Patient Position: Sitting; Cuff Location : Left Arm; Cuff Size: Standard 07-16-2016 08:23-0500 Body height 177.8 cm Thea Booth LPN [facility] [employer] 07-16-2016 08:23-0500 Body mass index (BMI) [Ratio] 27.84 kg/m2 Thea Booth LPN [facility] [email or web address] 07-16-2016 08:23-0500 Body surface area Derived from formula 2.06 m2 Thea Booth LPN [facility] [email or web address] 07-16-2016 08:23-0500 Body weight 88 kg Thea Booth LPN [facility] [employer], [employer]. 07-16-2016 08:23-0500 Diastolic blood pressure 88 mm[Hg] Thea Booth LPN [facility] [employer], [employer]. Comment on above: Patient Position: Sitting; Cuff Location : Left Arm; Cuff Size: Standard 07-16-2016 08:23-0500 Heart rate 81 /min Thea Booth LPN [facility] [employer], [employer]. Comment on above: Pattern: Regular 07-16-2016 08:23-0500 Systolic blood pressure 142 mm[Hg] Thea Booth LPN [facility] [employer], [employer]. Comment on above: Patient Position: Sitting; Cuff Location : Left Arm; Cuff Size: Standard 06-11-2016 11:20-0400 Body temperature 98.3 [degF] Ely Metz OPERATIONS RESEARCH SCIENTIST [facility] [employer] [facility], [employer].; [employer]. 06-11-2016 11:20-0400 Body weight 87.54 kg Ely Metz OPERATIONS RESEARCH SCIENTIST [facility] [employer]. 06-11-2016 11:20-0400 Diastolic blood pressure 87 mm[Hg] Ely Metz OPERATIONS RESEARCH SCIENTIST [email or web address], [employer].; [employer]. Comment on above: Patient Position: Sitting; Cuff Location : Left Arm; Cuff Size: Standard 06-11-2016 11:20-0400 Heart rate 87 /min Ely Metz OPERATIONS RESEARCH SCIENTIST [facility] [employer] [facility], [employer]. Comment on above: Pattern: Regular 06-11-2016 11:20-0400 Inhaled oxygen concentration 20 % Ely Metz OPERATIONS RESEARCH SCIENTIST [facility] [employer]) [facility], [employer].; [employer]. Comment on above: Room air 06-11-2016 11:20-0400 Inhaled oxygen concentration 21 % Ely Metz OPERATIONS RESEARCH SCIENTIST [email or web address], [employer].; [employer]. Comment on above: Room air 06-11-2016 11:20-0400 SaO2% (BldA) [Mass fraction] 99 % Ely Metz OPERATIONS RESEARCH SCIENTIST [facility] [employer]) [facility], Inc[employer], [employer]. 06-11-2016 11:20-0400 Systolic blood pressure 142 mm[Hg] Ely Metz OPERATIONS RESEARCH SCIENTIST [employer] [facility], [employer].; [employer]. Comment on above: Patient Position: Sitting; Cuff Location : Left Arm; Cuff Size: Standard 08-09-2015 15:07-0500 Body weight 84.37 kg Ely Metz ALAN [employer] [facility], [employer].; [employer]. 08-09-2015 15:07-0500 Diastolic blood pressure 75 mm[Hg] Ely Metz LPN [email or web address], [employer].; [employer]. Comment on above: Patient Position: Sitting; Cuff Location : Left Arm; Cuff Size: Standard 08-09-2015 15:07-0500 Heart rate 74 /min Ely Metz LPN [email or web address]. Comment on above: Pattern: Regular 08-09-2015 15:07-0500 Systolic blood pressure 114 mm[Hg] Ely Metz LPN [email or web address]. Comment on above: Patient Position: Sitting; Cuff Location : Left Arm; Cuff Size: Standard 01-04-2015 14:39-0400 Body height 177.8 cm Wilfredo Reno MD Work Phone: [email or web address]. 01-04-2015 14:39-0400 Body mass index (BMI) [Ratio] 26.6 kg/m2 Wilfredo Reno MD Work Phone: [employer] 01-04-2015 14:39-0400 Body surface area Derived from formula 2.02 m2 Wilfredo Reno MD Work Phone: [employer]. 01-04-2015 14:39-0400 Body weight 84.09 kg Wilfredo Reno MD Work Phone: [employer] 01-04-2015 14:39-0400 Diastolic blood pressure 82 mm[Hg] Wilfredo Reno MD Work Phone: [employer]. Comment on above: Patient Position: Sitting; Cuff Location : Left Arm; Cuff Size: Standard 01-04-2015 14:39-0400 Heart rate 79 /min Wilfredo Reno MD Work Phone: [employer]. Comment on above: Pattern: Regular 01-04-2015 14:39-0400 Inhaled oxygen concentration 20 % Wilfredo Reno MD Work Phone: [employer]. Comment on above: Room air 01-04-2015 14:39-0400 Inhaled oxygen concentration 21 % Wilfredo Reno MD Work Phone: [employer]; [employer]. Comment on above: Room air 01-04-2015 14:39-0400 SaO2% (BldA) [Mass fraction] 96 % Wilfredo Reno MD Work Phone: [place] [employer]. 01-04-2015 14:39-0400 Systolic blood pressure 135 mm[Hg] Wilfredo Reno MD Work Phone: [place] [employer]. Comment on above: Patient Position: Sitting; Cuff Location : Left Arm; Cuff Size: Standard 04-30-2014 15:35-0400 Body weight 86.64 kg Ely Metz LPN [place] [employer]. 04-30-2014 15:35-0400 Diastolic blood pressure 82 mm[Hg] Ely Metz LPN [email or web address]. Comment on above: Patient Position: Sitting; Cuff Location : Left Arm; Cuff Size: Standard 04-30-2014 15:35-0400 Heart rate 80 /min Ely Metz LPN [place] [employer]. Comment on above: Pattern: Regular 04-30-2014 15:35-0400 Systolic blood pressure 120 mm[Hg] Ely Metz [email or web address]. Comment on above: Patient Position: Sitting; Cuff Location : Left Arm; Cuff Size: Standard 04-13-2014 16:54-0400 Body height 177.8 cm Thea Booth LPN [place] [employer]. 04-13-2014 16:54-0400 Body mass index (BMI) [Ratio] 27.41 kg/m2 Thea Booth LPN [employer] 04-13-2014 16:54-0400 Body surface area Derived from formula 2.05 m2 Thea Booth LPN [email or web address]. 04-13-2014 16:54-0400 Body temperature 97.4 [degF] Thea Booth LPN [email or web address]. Comment on above: Method: Tympanic 04-13-2014 16:54-0400 Body weight 86.64 kg Thea Erendira Booth OPERATIONS RESEARCH SCIENTIST [place] [employer] [facility], Inc.; [email or web address] 04-13-2014 16:54-0400 Diastolic blood pressure 92 mm[Hg] Thea Erendira Booth OPERATIONS RESEARCH SCIENTIST [place] [employer]) [facility], Inc.; [employer] Comment on above: Patient Position: Sitting; Cuff Location : Right Arm; Cuff Size: Standard 04-13-2014 16:54-0400 Heart rate 75 /min Theacastro Booth LPN [place] [employer] [facility], Inc[employer] Comment on above: Pattern: Regular 04-13-2014 16:54-0400 Systolic blood pressure 138 mm[Hg] Thea Erendira Booth LPN [email or web address] Comment on above: Patient Position: Sitting; Cuff Location : Right Arm; Cuff Size: Standard 09-25-2013 15:43-0500 Body height 177.8 cm Wilfredo Reno MD Work Phone: [email or web address] 09-25-2013 15:43-0500 Body mass index (BMI) [Ratio] 27.12 kg/m2 Wilfredo Reno MD Work Phone: [email or web address], [employer] 09-25-2013 15:43-0500 Body surface area Derived from formula 2.04 m2 Wilfredo Reno MD Work Phone: [email or web address] 09-25-2013 15:43-0500 Body weight 85.73 kg Wilfredo Rneo MD Work Phone: [email or web address] 09-25-2013 15:43-0500 Diastolic blood pressure 75 mm[Hg] Wilfredo Reno MD Work Phone: [email or web address]. Comment on above: Patient Position: Sitting; Cuff Location : Left Arm; Cuff Size: Standard 09-25-2013 15:43-0500 Heart rate 78 /min Wilfredo Reno MD Work Phone: [place] [employer]. Comment on above: Pattern: Regular 09-25-2013 15:43-0500 Systolic blood pressure 133 mm[Hg] Wilfredo Reno MD Work Phone: [place] [employer]. Comment on above: Patient Position: Sitting; Cuff Location : Left Arm; Cuff Size: Standard 05-29-2013 14:44-0400 Body height 177.8 cm Annia Jhalabach [facility] [employer] [facility] [employer] 05-29-2013 14:44-0400 Body mass index (BMI) [Ratio] 26.69 kg/m2 Annia De Los Santos Jaime [facility] [employer] [facility].; [employer]. 05-29-2013 14:44-0400 Body surface area Derived from formula 2.02 m2 Annia De Los Santos Jaime [facility] [employer].; [employer]. 05-29-2013 14:44-0400 Body temperature 98.1 [degF] Annia M Jaime [email or web address] [employer]. Comment on above: Method: Tympanic 05-29-2013 14:44-0400 Body weight 84.37 kg Annia Jhalabach [facility] [employer].; [employer]. 05-29-2013 14:44-0400 Diastolic blood pressure 76 mm[Hg] Annia Jhalabach [email or web address] [employer]. Comment on above: Patient Position: Sitting; Cuff Location : Left Arm; Cuff Size: Standard 05-29-2013 14:44-0400 Heart rate 97 /min Annia Jhalabach [facility] [employer].; [employer]. Comment on above: Pattern: Regular 05-29-2013 14:44-0400 Systolic blood pressure 138 mm[Hg] Annia Jhalabach [email or web address] [employer]. Comment on above: Patient Position: Sitting; Cuff Location : Left Arm; Cuff Size: Standard 05-14-2013 10:39-0400 Body height 177.8 cm Rosita Willett ALAN [place] [employer] [facility], Inc.; [email or web address], [employer]. 05-14-2013 10:39-0400 Body mass index (BMI) [Ratio] 26.56 kg/m2 Rosita Willett [facility] [employer]) [facility], [facility].; [email or web address]. 05-14-2013 10:39-0400 Body surface area Derived from formula 2.02 m2 Rosita Willamssonu PHILLIPS [place] [employer]) [facility], [facility].; [email or web address], [employer]. 05-14-2013 10:39-0400 Body temperature 97.5 [degF] Rosita Willett [facility] [employer]) [facility], [facility].; [email or web address]. Comment on above: Method: Tympanic 05-14-2013 10:39-0400 Body weight 83.97 kg Rosita Willett ALAN [place] [employer]) [facility], [facility].; [email or web address]. 05-14-2013 10:39-0400 Diastolic blood pressure 72 mm[Hg] Rosita Willett [facility] [employer] [facility], [employer].; [email or web address]. Comment on above: Patient Position: Sitting; Cuff Location : Left Arm; Cuff Size: Standard 05-14-2013 10:39-0400 Heart rate 80 /min Rosita Willamsmaria del carmenviktoria OPERATIONS RESEARCH SCIENTIST [place] [employer]) [facility], [facility].; [email or web address]. Comment on above: Pattern: Regular 05-14-2013 10:39-0400 Inhaled oxygen concentration 20 % Rosita Xiongbreonna PHILLIPS [place] [employer]) [facility], [facility].; [employer]. Comment on above: Room air 05-14-2013 10:39-0400 Inhaled oxygen concentration 21 % Rosita Webreonna [facility] [employer]) [facility], [employer].; [email or web address]. Comment on above: Room air 05-14-2013 10:39-0400 SaO2% (BldA) [Mass fraction] 95 % Rosita Xiongbreonna [facility] [employer]) [facility], [facility].; [email or web address]. 05-14-2013 10:39-0400 Systolic blood pressure 114 mm[Hg] Rosita Coleyviktoria [facility], [facility].; [place] [employer]) [facility], [employer]. Comment on above: Patient Position: Sitting; Cuff Location : Left Arm; Cuff Size: Standard 04-01-2013 14:53-0400 Body height 177.8 cm Antoinette Vyas [facility], [facility].; [place] [employer]) [facility], Inc[facility] 04-01-2013 14:53-0400 Body mass index (BMI) [Ratio] 26.83 kg/m2 NatashaKaylin Vyas [facility], [facility].; [place] [employer]) [facility], Inc[facility] 04-01-2013 14:53-0400 Body surface area Derived from formula 2.03 m2 Natasha Stuckey [facility].; [place] [employer]) [facility], [facility]. 04-01-2013 14:53-0400 Body weight 84.82 kg Antoinette Vyas [facility].; [place] [employer]) [facility], [facility]. 04-01-2013 14:53-0400 Diastolic blood pressure 75 mm[Hg] Antoinette Vyas [facility], [facility].; [email or web address], [employer]. Comment on above: Patient Position: Sitting; Cuff Location : Left Arm; Cuff Size: Large 04-01-2013 14:53-0400 Heart rate 80 /min NatashaKaylin Vyas [facility], [facility].; [employer]) [facility], Inc[facility] Comment on above: Pattern: Regular 04-01-2013 14:53-0400 Systolic blood pressure 129 mm[Hg] Antoinette Vyas [facility].; [employer], [employer]. Comment on above: Patient Position: Sitting; Cuff Location : Left Arm; Cuff Size: Large 09-16-2012 [id number] Body height 177.8 cm Antoinette Vyas [facility].; [place] [employer], [employer]. 09-16-2012 15:10-0500 Body mass index (BMI) [Ratio] 27.84 kg/m2 Antoinette Vyas [facility].; [place] [employer]) [facility], [employer]. 09-16-2012 15:10-0500 Body surface area Derived from formula 2.06 m2 Antoinette Vyas LPN [facility], [facility].; [employer] [facility] Inc[facility] 09-16-2012 15:10-0500 Body weight 88 kg Antoinette Vyas LPN [facility], Inc.; [employer] [facility], Inc[facility] 09-16-2012 15:10-0500 Diastolic blood pressure 80 mm[Hg] Antoinette Vyas [facility].; [employer], [employer] Comment on above: Patient Position: Sitting; Cuff Location : Left Arm; Cuff Size: Large 09-16-2012 15:10-0500 Heart rate 78 /min Antoinette Vyas [facility].; [employer], [employer] Comment on above: Pattern: Regular 09-16-2012 15:10-0500 Systolic blood pressure 121 mm[Hg] Antoinette Vyas LPN [facility], Inc.; [employer], [employer] Comment on above: Patient Position: Sitting; Cuff Location : Left Arm; Cuff Size: Large 03-14-2012 07:05-0400 Body height 177.8 cm Antoinette Vyas OPERATIONS RESEARCH SCIENTIST [facility], Inc.; [employer], [employer] 03-14-2012 07:05-0400 Body mass index (BMI) [Ratio] 26.54 kg/m2 Antoinette Vyas [facility].; [employer], [employer] 03-14-2012 07:05-0400 Body surface area Derived from formula 2.02 m2 Antoinette Vyas OPERATIONS RESEARCH SCIENTIST [facility], [facility].; [employer]) [facility] 03-14-2012 07:05-0400 Body weight 83.92 kg Antoinette Vyas [facility].; [employer], [employer]. 03-14-2012 07:05-0400 Diastolic blood pressure 85 mm[Hg] Antoinette Vyas [facility].; [employer], [employer] Comment on above: Patient Position: Sitting; Cuff Location : Left Arm; Cuff Size: Large 03-14-2012 07:05-0400 Heart rate 73 /min Antoinette Vyas [facility].; [employer], [employer]. Comment on above: Pattern: Regular 03-14-2012 07:05-0400 Systolic blood pressure 138 mm[Hg] Antoinette Vyas ALAN [place] [employer] [facility].; [employer]. Comment on above: Patient Position: Sitting; Cuff Location : Left Arm; Cuff Size: Large 10-12-2011 07:02-0500 Body weight 82.56 kg Ely Whatley Isaías PHILLIPS [place] [employer]) [facility], [facility].; [employer] 10-12-2011 07:02-0500 Diastolic blood pressure 84 mm[Hg] Ely Metz LPN [facility] [employer] [employer]. Comment on above: Patient Position: Sitting; Cuff Location : Left Arm; Cuff Size: Standard 10-12-2011 07:02-0500 Systolic blood pressure 138 mm[Hg] Ely Metz LPN [place] [employer] [facility], [facility].; [employer]. Comment on above: Patient Position: Sitting; Cuff Location : Left Arm; Cuff Size: Standard 04-13-2011 09:04-0400 Body weight 82.1 kg Elyvanesa Metz ALAN [place] [employer] [facility], [employer].; [employer]. 04-13-2011 09:04-0400 Diastolic blood pressure 77 mm[Hg] Ely E Isaías PHILLIPS [place] [employer] [facility], [employer].; [employer]. Comment on above: Patient Position: Sitting; Cuff Location : Left Arm; Cuff Size: Standard 04-13-2011 09:04-0400 Heart rate 74 /min Ely Metz LPN [place] [employer] [facility], [employer].; [employer]. Comment on above: Pattern: Regular 04-13-2011 09:04-0400 Systolic blood pressure 124 mm[Hg] Ely Chacorta Metz ALAN [email or web address], [employer].; [employer]. Comment on above: Patient Position: Sitting; Cuff Location : Left Arm; Cuff Size: Standard 08-08-2010 09:05-0500 Body height 177.8 cm Antoinette Ewing [place] OPERATIONS RESEARCH SCIENTIST [place] [employer] [facility].; [employer]. 08-08-2010 09:05-0500 Body mass index (BMI) [Ratio] 26.97 kg/m2 Antoinette Ewing Lilliam [facility].; [facility], [facility]. 08-08-2010 09:05-0500 Body surface area Derived from formula 2.03 m2 Antoinette Vyas [facility], [facility].; [facility], [facility]. 08-08-2010 09:05-0500 Body weight 85.28 kg Antoinette Vyas [facility], [facility].; [facility], [facility]. 08-08-2010 09:05-0500 Diastolic blood pressure 71 mm[Hg] Antoinette Vyas [facility].; [place] [employer] [facility], [employer]. Comment on above: Patient Position: Sitting; Cuff Location : Left Arm; Cuff Size: Large 08-08-2010 09:05-0500 Heart rate 64 /min Antoinette Vyas [facility], [facility].; [place] [employer] [facility], [employer]. Comment on above: Pattern: Regular 08-08-2010 09:05-0500 Systolic blood pressure 113 mm[Hg] Atnoinette Vyas [facility], [facility].; [place] [employer] [facility], [employer]. Comment on above: Patient Position: Sitting; Cuff Location : Left Arm; Cuff Size: Large 07-07-2010 10:51-0500 Body weight 86.64 kg Ely Metz [facility], [facility].; [facility], [facility]. 07-07-2010 10:51-0500 Diastolic blood pressure 98 mm[Hg] Ely Metz [facility], [facility].; [place] [employer] [facility], [employer]. Comment on above: Patient Position: Sitting; Cuff Location : Left Arm; Cuff Size: Standard 07-07-2010 10:51-0500 Heart rate 90 /min Ely Metz [facility], [facility].; [place] [employer] [facility], [employer]. Comment on above: Pattern: Regular 07-07-2010 10:51-0500 Systolic blood pressure 174 mm[Hg] Ely Metz [facility], [facility].; [place] [employer] [facility], [employer]. Comment on above: Patient Position: Sitting; Cuff Location : Left Arm; Cuff Size: Standard 06-08-2010 18:38-0400 Body height 177.8 cm Wilfredo Reno MD Work Phone: [employer]; [employer]. 06-08-2010 18:38-0400 Body mass index (BMI) [Ratio] 26.26 kg/m2 Wilfredo Reno MD Work Phone: [employer]; [employer]. 06-08-2010 18:38-0400 Body surface area Derived from formula 2.01 m2 Wilfredo Reno MD Work Phone: [employer]; [employer]. 06-08-2010 18:38-0400 Body temperature 97.7 [degF] Wilfredo Reno MD Work Phone: [employer]; [employer]. Comment on above: Method: Tympanic 06-08-2010 18:38-0400 Body weight 83.01 kg Wilfredo Reno MD Work Phone: [employer]; [employer] 06-08-2010 18:38-0400 Diastolic blood pressure 100 mm[Hg] Wilfredo Reno MD Work Phone: [employer]; [employer]. Comment on above: Patient Position: Sitting; Cuff Location : Left Arm; Cuff Size: Standard 06-08-2010 18:38-0400 Systolic blood pressure 155 mm[Hg] Wilfredo Reno MD Work Phone: [employer]; [employer]. Comment on above: Patient Position: Sitting; Cuff Location : Left Arm; Cuff Size: Standard Encounters Encounter Date Encounter Type Care Provider Facility Start: 01-28-2025 End: 01-28-2025 Office outpatient visit 15 minutes Wilfredo Reno MD Work Phone: [employer] Start: 12-24-2024 End: 12-24-2024 Historical Summary Wilfredo Reno MD Work Phone: [employer] Start: 12-24-2024 End: 12-24-[address] Clementina Peñaloza MD -[facility] Work Phone: Start: 12-24-2024 End: 12-24-[address] Wilfredo Reno MD Work Phone: [facility] Work Phone: Start: 12-24-2024 End: 12-24-2024 ambulatory Wilfredo Reno Facility:[facility] Start: 11-30-2024 End: 11-30-2024 Orders Wilfredo Reno MD Work Phone: [employer]. Start: 11-16-2024 End: 11-16-2024 ambulatory WILFREDO RENO [facility] Start: 11-16-2024 End: 11-16-2024 Orders Wilfredo Reno MD Work Phone: [employer]. Start: 11-12-2024 End: 11-12-2024 Office outpatient visit 25 minutes Wilfredo Reno MD Work Phone: [employer]. Start: 09-17-2024 End: 09-17-2024 Patient encounter procedure Wilfredo Reno MD Work Phone: [employer]. Start: 09-17-[address] [facility] Start: 07-23-2024 Review Wilfredo Reno MD Work Phone: [employer]. Start: 07-23-2024 End: 07-23-2024 Periodic preventive med est patient 40-64yrs Wilfredo Reno MD Work Phone: [employer]. Start: 07-23-2024 End: 07-23-2024 Physical examination Wilfredo Reno MD Work Phone: [employer] Start: 07-06-2024 End: 07-06-2024 Orders Wilfredo Reno MD Work Phone: [employer]. Start: 06-30-2024 End: 06-30-2024 Orders Wilfredo Reno MD Work Phone: [employer]. Start: 04-07-2024 End: 04-07-2024 Medication Wilfredo Reno MD Work Phone: [employer]. Start: 04-02-2024 Review Wilfredo Reno MD Work Phone: [employer]. Start: 04-02-2024 End: 04-02-2024 Orders Wilfredo Reno MD Work Phone: [employer]. Start: 04-02-2024 End: 04-02-2024 Office outpatient visit 15 minutes Wilfredo Reno MD Work Phone: [employer]. Start: 04-02-2024 Review Wilfredo Reno MD Work Phone: [employer]. Start: 01-02-2024 End: 01-02-2024 Office outpatient visit 15 minutes Wilfredo Reno MD Work Phone: [employer]. Start: 07-17-2023 End: 07-17-2023 Periodic preventive med est patient 40-64yrs Wilfredo Reno MD Work Phone: [employer]. Start: 07-17-2023 End: 07-17-2023 Physical examination Wilfredo Reno MD Work Phone: [employer] Start: 07-10-2023 End: 07-15-2023 Orders Wilfredo Reno MD Work Phone: [employer]. Start: 06-26-2023 End: 06-26-2023 Office outpatient visit 15 minutes Wilfredo Reno MD Work Phone: [employer]. Start: 06-24-2023 End: 06-24-2023 Orders Wilfredo Reno MD Work Phone: [employer]. Start: 04-18-2023 End: 04-18-[address] [facility] Work Phone: Start: 04-18-2023 End: 04-18-[address] [facility] Work Phone: Start: 04-11-2023 End: 04-11-2023 Office outpatient visit 15 minutes Wilfredo Reno MD Work Phone: [employer] Start: 04-11-2023 End: 04-11-2023 Preprocedural examination done Wilfredo Reno MD Work Phone: [employer]; [employer] Start: 01-02-2023 End: 01-02-2023 Office outpatient visit 15 minutes Wilfredo Reno MD Work Phone: [employer] Start: 08-27-2022 End: 08-27-2022 Historical Summary Wilfredo Reno MD Work Phone: [employer] Start: 2022 End: 2022 Periodic preventive med est patient 40-64yrs Wilfredo Reno MD Work Phone: [employer] Start: 2022 End: 2022 Physical examination Wilfredo Reno MD Work Phone: [employer]; [employer] Start: 06-27-2022 End: 06-27-2022 Orders Wilfredo Reno MD Work Phone: [employer] Start: 06-07-2022 End: 06-07-2022 Orders Wilfredo Reno MD Work Phone: [employer] Start: 05-10-2022 End: 05-10-2022 Admission to same day surgery center [facility] Start: 05-10-2022 End: 05-10-[address] [facility] Work Phone: Start: 05-02-2022 End: 05-02-2022 Office outpatient visit 15 minutes Wilfredo Reno MD Work Phone: [employer] Start: 05-02-2022 End: 05-02-2022 Preprocedural examination done Wilfredo Reno MD Work Phone: [employer]; [employer] Work Phone: Start: 04-17-2022 End: 09-06-[address] [facility] Work Phone: Start: 04-17-2022 End: 04-17-[address] [facility] Start: 01-04-2022 End: 01-04-2022 Orders Wilfredo Reno MD Work Phone: [employer] Start: 01-01-2022 End: 01-01-2022 Office outpatient visit 25 minutes Wilfredo Reno MD Work Phone: [employer]. Start: 03-06-2021 End: 03-06-2021 Office outpatient visit 15 minutes Wilfredo Reno MD Work Phone: [employer]. Start: 09-05-2020 End: 09-05-2020 Patient encounter status Wilfredo Reno MD Work Phone: [employer] Start: 09-05-2020 End: 09-05-2020 Periodic preventive med est patient 40-64yrs Wilfredo Reno MD Work Phone: [employer]. Start: 07-18-2020 End: 07-18-2020 Orders Wilfredo Reno MD Work Phone: [employer]. Start: 02-22-2020 End: 02-22-2020 Office outpatient visit 15 minutes Wilfredo Reno MD Work Phone: [employer]. Start: 01-27-2020 End: 01-27-2020 Follow-up encounter Wilfredo Reno MD Work Phone: [employer]. Start: 08-24-2019 End: 08-24-2019 Patient encounter status Wilfredo Reno MD Work Phone: [employer] Start: 08-24-2019 End: 08-24-2019 Periodic preventive med est patient 40-64yrs Wilfredo Reno MD Work Phone: [employer]. Start: 08-13-2019 End: 08-14-2019 Orders Wilfredo Reno MD Work Phone: [employer]. Start: 06-16-2019 End: 06-16-2019 Orders Wilfredo Reno MD Work Phone: [employer]. Start: 03-18-2019 End: 03-18-2019 Office outpatient visit 15 minutes Wilfredo Reno MD Work Phone: [employer]. Start: 03-04-2019 End: 03-04-2019 Telephone follow-up Wilfredo Reno MD Work Phone: [employer]. Start: 02-11-2019 End: 02-11-2019 Office outpatient visit 15 minutes Wilfredo Reno MD Work Phone: [employer]. Start: 07-25-2018 End: 07-25-2018 Patient encounter status Wilfredo Reno MD Work Phone: [employer] Start: 07-25-2018 End: 07-25-2018 Periodic preventive med est patient 40-64yrs Wilfredo Reno MD Work Phone: [employer]. Start: 05-12-2018 End: 05-12-2018 Orders Wilfredo Reno MD Work Phone: [employer]. Start: 04-15-2018 End: 04-15-2018 Office outpatient visit 15 minutes Wilfredo Reno MD Work Phone: [employer]. Start: 01-17-2018 End: 01-17-2018 Office outpatient visit 15 minutes Wilfredo Reno MD Work Phone: [employer]. Start: 10-08-2017 End: 10-08-2017 Office outpatient visit 15 minutes Wilfredo Reno MD Work Phone: [employer]. Start: 07-15-2017 End: 07-15-2017 Office outpatient visit 15 minutes Wilfredo Reno MD Work Phone: [employer]. Start: 06-20-2017 End: 06-20-2017 Orders Wilfredo Reno MD Work Phone: [employer]. Start: 01-02-2017 End: 01-02-2017 Office outpatient visit 15 minutes Wilfredo Reno MD Work Phone: [employer]. Start: 12-19-2016 End: 12-19-2016 Orders Wilfredo Reno MD Work Phone: [employer]. Start: 12-04-2016 End: 12-04-2016 Office outpatient visit 15 minutes Wilfredo Reno MD Work Phone: [employer]. Start: 07-16-2016 End: 07-16-2016 Patient encounter procedure Wilfredo Reno MD Work Phone: [employer]. Start: 06-11-2016 End: 06-11-2016 Office outpatient visit 15 minutes Wilfredo Reno MD Work Phone: [employer]. Start: 08-24-2015 End: 08-24-2015 Orders Wilfredo Reno MD Work Phone: [employer]. Start: 08-09-2015 End: 08-09-2015 Office outpatient visit 15 minutes Wilfredo Reno MD Work Phone: [employer]. Start: 01-21-2015 End: 01-21-2015 Medication Wilfredo Reno MD Work Phone: [employer]. Start: 01-04-2015 End: 01-04-2015 Office outpatient visit 15 minutes Wilfredo Reno MD Work Phone: [employer]. Start: 04-30-2014 End: 04-30-2014 Office outpatient visit 15 minutes Wilfredo Reno MD Work Phone: [employer]. Start: 04-13-2014 End: 04-13-2014 Patient encounter procedure Wilfredo Reno MD Work Phone: [employer]. Start: 10-02-2013 End: 10-02-2013 Historical Summary Wilfredo Reno MD Work Phone: [employer]. Start: 09-28-2013 End: 09-28-2013 Orders Wilfredo Reno MD Work Phone: [employer]. Start: 09-25-2013 End: 09-25-2013 Patient encounter procedure Wilfredo Reno MD Work Phone: [employer] Start: 05-29-2013 End: 05-29-2013 Patient encounter procedure Wilfredo Reno MD Work Phone: [employer]. Start: 05-14-2013 End: 05-14-2013 Patient encounter procedure Wilfredo Reno MD Work Phone: [employer]. Start: 04-01-2013 End: 04-01-2013 Patient encounter procedure Wilfredo Reno MD Work Phone: [employer]. Start: 09-16-2012 End: 09-16-2012 Patient encounter procedure Wilfredo Reno MD Work Phone: [employer]. Start: 03-14-2012 End: 03-14-2012 Patient encounter procedure Wilfredo Reno MD Work Phone: [employer]. Start: 10-12-2011 End: 10-12-2011 Patient encounter procedure Wilfredo Reno MD Work Phone: [employer]. Start: 09-18-2011 End: 09-18-2011 Medication Wilfredo Reno MD Work Phone: [employer]. Start: 04-13-2011 End: 04-13-2011 Patient encounter procedure Wilfredo Reno MD Work Phone: [employer]. Start: 03-23-2011 End: 03-23-2011 Medication Wilfredo Reno MD Work Phone: [employer]. Start: 11-09-2010 End: 11-09-2010 Medication Wilfredo Reno MD Work Phone: [employer]. Start: 08-08-2010 End: 08-08-2010 Patient encounter procedure Wilfredo Reno MD Work Phone: [employer]. Start: 07-07-2010 End: 07-07-2010 Patient encounter procedure Wilfredo Reno MD Work Phone: [employer] Start: 06-08-2010 End: 06-08-2010 Patient encounter procedure Wilfredo Reno MD Work Phone: [employer] [facility] Patient encounter status Wilfredo Reno MD [facility]: [facility] Procedures Date Procedure Procedure Detail Performing Clinician Start: 12-24-2024 End: 12-24-2024 Most Recent Cardio Report Taylor Daiyl LPN Start: 11-16-2024 End: 11-17-2024 Radex hand minimum 3 views Wilfredo Reno MD Work Phone: Start: 11-12-2024 End: 11-17-2024 Chest x-ray Wilfredo Reno MD Work Phone: Start: 11-12-2024 End: 11-30-2024 Xtrnl ecg & 48 hr record scan stor w/r&i Wilfredo Reno MD Work Phone: Start: 09-17-2024 End: 09-17-2024 Arthrocentesis aspir&/inj interm jt/burs w/o us Wilfredo Reno MD Work Phone: Start: 07-23-2024 End: 07-22-2024 Depression screening Wilfredo Reno MD Work Phone: Start: 07-23-2024 End: 07-23-2024 Flu imm no admin doc lisa Wilfredo Stokes Work Phone: Start: 07-23-2024 End: 07-22-2024 Pos clin depres scrn f/u doc Wilfredo Reno MD Work Phone: Start: 07-23-2024 End: 07-23-2024 Pt falls assess docd 2/> falls/fall w/injury/yr Wilrfedo Reno MD Work Phone: Start: 07-23-2024 End: 07-22-2024 Scr dep neg, no plan reqd Wilfredo Reno MD Work Phone: Start: 07-06-2024 End: 07-06-2024 Lab findings surveillance Taylor Daily LPN Comment on above: 96 Start: 07-06-2024 End: 07-06-2024 Lipid panel results documented & reviewed Taylor Daily LPN Comment on above: TC 192 HDL 53 LDL 12 1 TRI 82 Start: 04-02-2024 End: 04-02-2024 Dexamethasone sodium phos Wilfredo Reno MD Work Phone: Start: 04-02-2024 End: 04-02-2024 Triamcinolone acet inj NOS Wilfredo Reno MD Work Phone: Start: 07-17-2023 End: 07-17-2023 Depression screening Wilfredo Reno MD Work Phone: Start: 07-17-2023 End: 07-17-2023 Scr dep neg, no plan reqd Wilfredo Reno MD Work Phone: Start: 07-10-2023 End: 07-10-2023 Lab findings surveillance Abdirahman VALENCIA Comment on above: 94 in cmp Start: 07-10-2023 End: 07-10-2023 Lipid panel results documented & reviewed Abdirahman Forrester LPN Comment on above: TC 205, HDL 39, LDL 135, Trig 172 Start: 07-10-2023 End: 07-10-2023 Prostate specific antigen measurement Abdirahman Forrester LPN Comment on above: 0.82 Start: 04-18-2023 MRI of lower extremity Start: 04-12-2023 End: 04-12-2023 Total replacement of right hip joint Abdirahman Forrester LPN Start: 08-15-2022 End: 08-15-2022 FIT DNA test Abdirahman Forrester LPN Comment on above: negative Cologuard Start: 2022 End: 2022 Depression screening Wilfredo Reno MD Work Phone: Start: 2022 End: 08-27-2022 Oncology colorectal screening alana 10 dna markrs Wilfredo Reno MD Work Phone: Start: 2022 End: 2022 Scr dep neg, no plan reqd Wilfredo Reno MD Work Phone: Start: 05-10-2022 Plain X-ray of hip Start: 09-29-2022 Total Hip Replacemen t Robotic Arm Assist (Left) Start: 04-17-2022 MRI of lower extremity Start: 01-01-2022 End: 01-01-2022 Radex hips bilateral with pelvis 2 views Wilfredo Reno MD Work Phone: Start: 09-05-2020 End: 09-05-2020 Depression screening Wilfredo Reno MD Work Phone: Start: 09-05-2020 End: 09-05-2020 Scr dep neg, no plan reqd Wilfredo Reno MD Work Phone: Start: 08-24-2019 End: 08-24-2019 Depression screening Wilfredo Reno MD Work Phone: Comment on above: Pt refused to do scr een. Interview did not reveal any problems though Start: 04-15-2018 End: 04-15-2018 Radex hand minimum 3 views Wilfredo Reno MD Work Phone: Comment on above: ATTENTION TO MIDDLE FINGER Start: 01-17-2018 End: 01-17-2018 Body mass index documented Wilfredo Reno MD Work Phone: Start: 10-08-2017 End: 10-08-2017 Body mass index documented Wilfredo Reno MD Work Phone: Start: 07-15-2017 End: 10-15-2017 Body mass index documented Ely Metz LPN Start: 07-15-2017 End: 07-15-2017 Most recent diastolic blood pressure < 80 mm hg Wilfredo Reno MD Work Phone: Start: 07-15-2017 End: 07-15-2017 Most recent systolic blood pressure <130 mm hg Wilfredo Reno MD Work Phone: Start: 05-29-2013 End: 05-29-2013 Tobacco use cessation ivntj counseling Annia Quiñones MD Work Phone: Hernia repair Abdirahman Bonner PN Comment on above: [place] Total replacement of hip Raisa janeth Forrester LPN Comment on above: Left. Vasectomy Abdirahman Forrester LP N Plan of Treatment Date Care Activity Detail Author Start: 05-20-2025 Patient encounter procedure Medical; PHYSICAL - awv [facility] Start: 20-May-2025 10:10-04:00 MD Wilfredo Reno Appointment Request [email or web address] Start: 05-12-2025 Nursing evaluation of patient and report Medical; Nurse visit - fasting labs sfb [email or web address]. Start: 12-May-2025 08:40-04:00 NURSE, FLOAT Appointment Request [email or web address] Start: 01-28-2025 Patient encounter procedure [facility] Start: 12-24-2024 Evaluation of diagnostic study results [facility] Start: 11-16-2024 Radex hand minimum 3 views Hand x-ray, Left Complete ([id number]) Start: 16-Nov-2024 Intent [email or web address] Start: 11-12-2024 Chest x-ray CHEST X-RAY, PA AND LATERAL ([id number]) Start: 12-Nov-2024 Intent [employer] Start: 11-12-2024 End: 11-12-2024 Xtrnl ecg & 48 hr record scan stor w/r&i 24 Hr Holter ([id number]) Date: 12-Nov-2024 [email or web address] Start: 07-23-2024 Patient encounter procedure Medical; PHYSICAL - AWV [email or web address]. Start: 23-Jul-2024 07:20-05:00 MD Wilfredo Reno Appointment Request [employer] Start: 07-06-2024 Comprehensive metabolic panel CMP w/ GFR* (53972) Start: 06-Jul-2024 Request [employer] Start: 07-06-2024 Lipid panel [email or web address] [employer] Start: 07-06-2024 Nursing evaluation of patient and report [email or web address] Start: 04-02-2024 Dexamethasone sodium phos Dexamethasone sodium (Decadron) injection, 4mg/ml (J1100) Start: 02-Apr-2024 Intent [employer], [employer]. Start: 04-02-2024 End: 04-02-2024 Triamcinolone acet inj NOS Kenalog injection, 60mg/1.5ml ([id number]) Date: 02-Apr-2024 [facility], [facility] Start: 01-02-2024 Patient encounter procedure Medical; RTN OFFICE VISIT - 6 mo rtn [facility], [facility] Start: 02-Jan-2024 07:10-04:00 MD Wilfredo Reno Appointment Request [facility], [facility] Start: 05-10-2022 Application of ice collar, cap or bag [facility] Work Phone: Start: 05-10-[address] [facility] Work Phone: Start: 05-10-[address] [facility] Work Phone: Start: 05-10-[address] [facility] Work Phone: Start: 05-10-[address] [facility] Work Phone: Start: 05-10-[address] [facility] Work Phone: Start: 05-10-2022 Provision of activity privileges [facility] Work Phone: Start: 05-10-[address] [facility] Work Phone: Start: 05-10-[address] [facility] Work Phone: Start: 05-10-[address] [facility] Work Phone: Start: 05-10-2022 [facility] Work Phone: Complete blood count [facility] Comprehensive metabo lic 2000 panel - Serum or Plasma [facility] Magnesium measurement [facility] Patient referral [facility] Work Phone: Radionuclide imaging of perfusion of myocardium under exercise stress [facility] Thyroid stimulating hormone measurement [facility] Carotid arteries [facility] Heart [facility] dexAMETHasone so d phos (bulk) 100 % powder Ordered: 02-Apr-2024 MD Wilfredo Reno Intent [facility], [facility] Immunizations Immunization Date Immunization Notes Care Provider Melida hernandez 08-24-2019 tetanus toxoid, redu karin diphtheria toxoid, and acellular pertussis vaccine, adsorbed Wilfredo Reno MD Work Phone: [facility] Comment on above: Site: Right DeltoidV IS Given: * Tdap (Tetanus, Diphtheria, Pertussis) (10/05/14) Payers Date Payer Category Payer Self-pay 2000 Unknown [id number] 2000 Unknown [id number] 1965 Unknown [id number] Unknown [employer] Unknown [id number] Unknown [id number] Social History Date Type Detail Facility Start: 02-28-2022 End: 04-17-2023 Tobacco smoking status GAIS Unknown if ever smoked [facility] Start: 1965 Sex Assigned At Male [facility] Alcohol Use Alcohol Use [facility] [employer] [facility] Exercise History: Exercise Histo ry: ; Light. [email or web address] Tobacco Use: Tobacco Use: ; F ormer smoker. [facility] [employer] [email or web address] Smokes tobacco daily [facility] [facility] [email or web address] Work Phone: Start: 12-17-[address] [facility] Medical Equipment Procedure Code Equipment Code Equipment Origin al Text Equipment Identifier Dates ([id number]) Ceramic femoral head prosthesis ()[id number] FDA Start: 05-10-2022 ([id number]) Coated hip femur prosthesis, modular ()[id number] FDA Start: 05-10-2022 ([id number]) Non-constrained polyethylene acetabular liner ()[id number] FDA Start: 05-10-2022 ([id number]) Acetabular shell ()[id number] FDA Start: 05-10-2022 ([id number]) Orthopaedic bone screw, non-bioabsorbable, sterile ()[id number] [id number] FDA Start: 05-10-2022 ([id number]) Ceramic femoral head prosthesis ()[id number] FDA Start: 05-09-2023 ([id number]) Coated hip femur prosthesis, modular ()[id number] [id number] FDA Start: 05-09-2023 ([id number]) Non-constrained polyethylene acetabular liner ()[id number] [id number] FDA Start: 05-09-2023 ([id number]) Acetabular shell ()[id number] [id number] [id number] FDA Start: 05-09-2023 ([id number]) Orthopaedic bone screw, non-bioabsorbable, sterile ()[id number] [id number] FDA Start: 05-09-2023 Goals Date Patient Goal Desired Activity /State Functional Status Date Assessment Result Facility 05-10-2022 Functional status Stand with Urinal [facility] Work Phone: Mental Status Date Assessment Result Facility 05-10-2022 Cognitive function [facility] Work Phone: Evaluation note 12-24-2024 Note Date & Type Note Facility 12-24-2024 Evaluation note Diagnosis Onset Date Resolution Syncope acute December 24, 2024 8:54am Dyslipidemia chronic December 24 8:54am ETOH abuse chronic December 24, 2024 8:54am Hypertension chronic December 24 8:54am [facility] Work Phone: Progress note 12-24-2024 Note Date & Type Note Facility 12-24-2024 Progress note [facility] Progress note 12-24-2024 Note Date & Type Note Facility 12-24-2024 Progress note Note Date/Time December 24, 2024 9:34am [facility] [address] [place] [address] OFFICE VISIT Date of Service: 12/24/24 MR#: [id number] Acct: [id number] Name: MARY PHAN Rep #: [id number] : 1965 Provider: Dr. Markie Peñaloza MD Age/Sex: 59/M [place] [facility] [place] Status: Signed HPI HPI History of Present Illness Details: This gentleman has a past medical history significant for dyslipidemia and hypertension. He has been referred to us for a syncopal episode that he has hadcouple of weeks ago. According to the patient, he was eating his dinner when he felt nauseous and lightheaded. According to him, he felt as if he was going to blackout. At thatpoint, he stood up. As soon as he stood up, he passed out and hit the ground. He woke up immediately after hitting the ground. He had an episode of vomiting soon thereafter. Denies any chest pains or shortness of breath either prior to or after the episode. No headaches. The episode was witnessed by his . Noseizure activity noted. No bladder or bowel incontinence. No tongue bite. According to the patient, he has had a somewhat similar episode couple of monthsago. That also occurred when he was having his breakfast. At that time however, he did not pass out but felt like he was going to pass out. He did have an episode of vomiting then as well. Patient denies any chest pains or shortness of breath either at rest or with exertion. No orthopnea. No PND. No ankle edema. No palpitations. His PCP ordered a 24-hour Holter monitor for the patient. It was unremarkable. Patient drinks about 5-6 bottles of beer every day. Per him, he was working outside in the heat the day his syncopal episode occurred and had about 5 bottles of beer throughout the day. Intake Vital Signs 05/09/23 06:37 12/24/24 08:27 Height 5 ft 11 in 5 ft 11 in Weight: 193 lb BMI 26.9 BP 122/87 H Blood Pressure Location Lt brachial Position Sitting Respiration 18 Pulse 76 Pulse Source NIBP Comment Standing BP: 133/88 HR: 88 Intake Visit Reasons: Syncope Caption Writer Required: No Accompanied by: Self Is patient in pain?: No Allergies Environmental Allergies: Uncoded (seasonal) Allergy (Mild, Verified 12/24/24 08:58) congestion Medications ?Medication ?Instructions ?Recorded ?Confirmed ?Type lisinopril 5 mg tablet 5 mg PO DAILY 04/27/2212/24 History atorvastatin 10 mg tablet 10 mg PO QHS 12/17/24 History Have you fallen in the past year?: Yes (no major injuries; swollen L-Hand) [facility] Medical History (Updated 12/24/24 @ 09:[address] Clementina Peñaloza MD) Multiple falls Syncope Hyperlipidemia Arthritis Wears glasses Alcohol use Back pain Bleeding hemorrhoids Former smoker Hypertension Surgical History (Updated 12/24/24 @ 09:00 by Jamar Rivas RN) History of right hip replacement History of left hip replacement History of inguinal hernia repair Social History Smoking Status: Former smoker how long ago did patient quit smokin alcohol intake: current alcohol intake frequency: a few times a month ROS Const Const: Positive for fatigue (age related per pt); Negative for weakness, headache(s) or weight gain ENT ENT: Positive for dizziness; Negative for headache(s), Nosebleed/epistaxis or balance problems Cardio Chest Pain: No Palpitations: No Edema: Left (hand s/p syncope and fall) Muscle aches with walking: None Resp Respiratory: Positive for SOB with activity (with overexertion); Negative for SOB at rest or SOB orthopneaundefinedSOB lying down GI GI: Positive for nausea and vomiting (following syncope episodes); Negative heartburn Musc Musc: Positive for muscle aches/ myalgia and joint pain; Negative for muscle weakness or balance problems Neuro Neuro: Positive for dizziness, lightheadedness, near syncope and syncope; Negative for headache(s) or weakness Endo Endo: Positive for fatigue (age related per pt) Cardiology Exam Const Appearance: comfortable and no acute distress Nutritional Appearance: well nourished Neck Neck: no JVD Carotids: Negative bruit Chest Auscultation: Bilateral: Clear to Auscultation Cardio Rate: regular rate Rhythm: regular rhythm Heart sounds: S1 normal and S2 normal Neuro General: patient alert, patient awake and patient oriented x3 Extremities Lower Extremity Edema: None: Bilateral Supplemental Info Supplemental Information 24 hour Monitor 11/18/2024 Primary rhythm was Sinus Rhythm. AVG HR 73 bpm. MIN HR 48 bpm on Day 2 04:48:22 am. MAX HR 118 bpm on Day 1 08:13:37 pm. PVC's: [place] was < 0.01%. 6 total PVC's. 4 disparate morphologies. Assessment and Plan Assessment and Plan (1) Syncope: Status: Acute Plan: Likely vasovagal based upon symptomatology. However will exclude cardiac causes. Check echocardiogram. Check exercise stress Myoview. Complete metabolic profile and complete blood count. Carotid Doppler. (2) Hypertension: Status: Chronic Plan: Lisinopril. (3) Dyslipidemia: Status: Chronic Plan: Atorvastatin. (4) ETOH abuse: Status: Chronic Plan: Counseled to quit. Orders: Orders 12 Lead EKG performed by [facility] Today R29.6 - Repeated falls, R55 - Syncope and collapse Plan Details Follow Up: 3 Months Coding Level of Care Code Off vis,new,level 4 Diagnoses Syncope R55 Hypertension I10 Dyslipidemia E78.5 ETOH abuse F10.10 Coding Level of Care Code Off vis,new,level 4 Diagnoses Syncope R55 Hypertension I10 Dyslipidemia E78.5 ETOH abuse F10.10 Clinical Quality Measures Falls Risk Screening/Assistive Devices Have you fallen in the past year?: Yes (no major injuries; swollen L-Hand) 12/24/24 0934 <Electronically signed by Clementina Peñaloza MD> Date _ Clementina Peñaloza MD Cosigner Signature: Date (if applicable) CC: Dr. Wilfredo Reno MD ~ [place] [facility] Work Phone: Evaluation note Note Date & Type Note Facility Evaluation note No assessment information availa ble [facility] Work Phone: Evaluation note Note Date & Type Note Facility Evaluation note Diagnosis Onset Date Resolution Syncope acute December 24, 2024 8:54am Dyslipidemia chronic December 24 8:54am ETOH abuse chronic December 24, 2024 8:54am Hypertension chronic December 24 8:54am [facility] Work Phone: Hospital Discharge instructions Note Date & Type Note Facility Hospital Discharge instructions Additional Instructions Follow preprinted instructions from your surgeons office [facility] Work Phone: Reason for referral (narrative) Note Date & Type Note Facility Reason for referral (narrative) No reason for referral information available [facility] Work Phone: Chief Complaint and Reason for Visit Chief Complaint Admit Date Syncope December 24, 2024 8:54a m EORDERS December 24, 2024 9:47a m Reason for Visit Admit Date Syncope December 24, 2024 8:54a m Dyslipidemia December 24, 2024 8:54a m ETOH abuse December 24, 2024 8:54a m Hypertension December 24, 2024 8:54a m Chief Complaint OA LT HIP *GENESIS PROT OCOL* Chief Complaint 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 Coronary Artery Disease Status:Active Comments :Father. Diabetes Mellitus Type II Status:Active Commen ts:Father. Uncle Hypertension Status:Active Comments:Father. Brothers Cancer Status:Active Comments:Negativ e Family History Of. Coronary Artery Disease Status:Active Comments :Father. Diabetes Mellitus Type II Status:Active Commen ts:Father. Uncle Hypertension Status:Active Comments:Father. Brothers Cancer Status:Active Comments:Negativ e Family History Of. Coronary Artery Disease Status:Active Comments :Father. Diabetes Mellitus Type II Status:Active Commen ts:Father. Uncle Hypertension Status:Active Comments:Father. Brothers Cancer Status:Active Comments:Negativ e Family History Of. Coronary Artery Disease Status:Active Comments :Father. Diabetes Mellitus Type II Status:Active Commen ts:Father. Uncle Hypertension Status:Active Comments:Father. Brothers Cancer Status:Active Comments:Negativ e Family History Of. Coronary Artery Disease Status:Active Comments :Father. Diabetes Mellitus Type II Status:Active Commen ts:Father. Uncle Hypertension Status:Active Comments:Father. Brothers Cancer Status:Active Comments:Negativ e Family History Of. Coronary Artery Disease Status:Active Comments :Father. Diabetes Mellitus Type II Status:Active Commen ts:Father. Uncle Hypertension Status:Active Comments:Father. Brothers Cancer Status:Active Comments:Negativ e Family History Of. Coronary Artery Disease Status:Active Comments :Father. Diabetes Mellitus Type II Status:Active Commen ts:Father. Uncle Hypertension Status:Active Comments:Father. Brothers Cancer Status:Active Comments:Negativ e Family History Of. Coronary Artery Disease Status:Active Comments :Father. Diabetes Mellitus Type II Status:Active Commen ts:Father. Uncle Hypertension Status:Active Comments:Father. Brothers Cancer Status:Active Comments:Negativ e Family History Of. Coronary Artery Disease Status:Active Comments :Father. Diabetes Mellitus Type II Status:Active Commen ts:Father. Uncle Hypertension Status:Active Comments:Father. Brothers Cancer Status:Active Comments:Negativ e Family History Of. Coronary Artery Disease Status:Active Comments :Father. Diabetes Mellitus Type II Status:Active Commen ts:Father. Uncle Hypertension Status:Active Comments:Father. Brothers Cancer Status:Active Comments:Negativ e Family History Of. Coronary Artery Disease Status:Active Comments :Father. Diabetes Mellitus Type II Status:Active Commen ts:Father. Uncle Hypertension Status:Active Comments:Father. Brothers Cancer Status:Active Comments:Negativ e Family History Of. Coronary Artery Disease Status:Active Comments :Father. Diabetes Mellitus Type II Status:Active Commen ts:Father. Uncle Hypertension Status:Active Comments:Father. Brothers Cancer Status:Active Comments:Negativ e Family History Of. Coronary Artery Disease Status:Active Comments :Father. Diabetes Mellitus Type II Status:Active Commen ts:Father. Uncle Hypertension Status:Active Comments:Father. Brothers Cancer Status:Active Comments:Negativ e Family History Of. Coronary Artery Disease Status:Active Comments :Father. Diabetes Mellitus Type II Status:Active Commen ts:Father. Uncle Hypertension Status:Active Comments:Father. Brothers Cancer Status:Active Comments:Negativ e Family History Of. Coronary Artery Disease Status:Active Comments :Father. Diabetes Mellitus Type II Status:Active Commen ts:Father. Uncle Hypertension Status:Active Comments:Father. Brothers Cancer Status:Active Comments:Negativ e Family History Of. Coronary Artery Disease Status:Active Comments :Father. Diabetes Mellitus Type II Status:Active Commen ts:Father. Uncle Hypertension Status:Active Comments:Father. Brothers Cancer Status:Active Comments:Negativ e Family History Of. Coronary Artery Disease Status:Active Comments :Father. Diabetes Mellitus Type II Status:Active Commen ts:Father. Uncle Hypertension Status:Active Comments:Father. Brothers Cancer Status:Active Comments:Negativ e Family History Of. Coronary Artery Disease Status:Active Comments :Father. Diabetes Mellitus Type II Status:Active Commen ts:Father. Uncle Hypertension Status:Active Comments:Father. Brothers Cancer Status:Active Comments:Negativ e Family History Of. Coronary Artery Disease Status:Active Comments :Father. Diabetes Mellitus Type II Status:Active Commen ts:Father. Uncle Hypertension Status:Active Comments:Father. Brothers Cancer Status:Active Comments:Negativ e Family History Of. Coronary Artery Disease Status:Active Comments :Father. Diabetes Mellitus Type II Status:Active Commen ts:Father. Uncle Hypertension Status:Active Comments:Father. Brothers Cancer Status:Active Comments:Negativ e Family History Of. Coronary Artery Disease Status:Active Comments :Father. Diabetes Mellitus Type II Status:Active Commen ts:Father. Uncle Hypertension Status:Active Comments:Father. Brothers Cancer Status:Active Comments:Negativ e Family History Of. Coronary Artery Disease Status:Active Comments :Father. Diabetes Mellitus Type II Status:Active Commen ts:Father. Uncle Hypertension Status:Active Comments:Father. Brothers Cancer Status:Active Comments:Negativ e Family History Of. Coronary Artery Disease Status:Active Comments :Father. Diabetes Mellitus Type II Status:Active Commen ts:Father. Uncle Hypertension Status:Active Comments:Father. Brothers Cancer Status:Active Comments:Negativ e Family History Of. Coronary Artery Disease Status:Active Comments :Father. Diabetes Mellitus Type II Status:Active Commen ts:Father. Uncle Hypertension Status:Active Comments:Father. Brothers Cancer Status:Active Comments:Negativ e Family History Of. Coronary Artery Disease Status:Active Comments :Father. Diabetes Mellitus Type II Status:Active Commen ts:Father. Uncle Hypertension Status:Active Comments:Father. Brothers Cancer Status:Active Comments:Negativ e Family History Of. Coronary Artery Disease Status:Active Comments :Father. Diabetes Mellitus Type II Status:Active Commen ts:Father. Uncle Hypertension Status:Active Comments:Father. Brothers Cancer Status:Active Comments:Negativ e Family History Of. Coronary Artery Disease Status:Active Comments :Father. Diabetes Mellitus Type II Status:Active Commen ts:Father. Uncle Hypertension Status:Active Comments:Father. Brothers Cancer Status:Active Comments:Negativ e Family History Of. Coronary Artery Disease Status:Active Comments :Father. Diabetes Mellitus Type II Status:Active Commen ts:Father. Uncle Hypertension Status:Active Comments:Father. Brothers Cancer Status:Active Comments:Negativ e Family History Of. Coronary Artery Disease Status:Active Comments :Father. Diabetes Mellitus Type II Status:Active Commen ts:Father. Uncle Hypertension Status:Active Comments:Father. Brothers Advance Directives Advance Directive Response Recorded Date/ Time Name of Medical Power of Integrity Analyst April 27, 2022 9:41am Living Will Yes April 27, 2022 9:41am Power of Integrity Analyst Yes April 9:41am Advance Directive Response Recorded Date/ Time Living Will Yes April 17, 2 023 2:06pm Power of Integrity Analyst Yes April 17, 2023 2:06pm Additional Source Comments Goals (unrecognized section and content) Goals may be documented in a n alternate sectionGoals may be documented in an alternate sectionGoals may be documented in an alternate sectionGoals may be documented in an alternate section (unrecognized sect ion and content) No Status Records FoundNo Status Records FoundNo Status Records FoundNo Status Records FoundNo Status Records Found INFORMATION SOURCE (unrecogn ized section and content) DATE CREATED AUTHOR 05/12/2022 [facility] DATE CREATED AUTHOR AUTHOR'S ORGANIZ ATION 07/09/2024 [facility] DATE CREATED AUTHOR AUTHOR'S ORGANIZ ATION 09/19/2024 [facility] DATE CREATED AUTHOR AUTHOR'S ORGANIZ ATION 11/17/2024 [facility] DATE CREATED AUTHOR AUTHOR'S ORGANIZ ATION 01/06/2025 [facility] Care Teams (unrecognized sec tion and content) Team Status: Active Member Role Status Dates Dr. Wilfredo Reno MD Primary Care Provider Active Team Status: Inactive Member Role Status Dates Dr. Wilfredo Reno MD Primary Care Provider Active Dr. Jd Vincent DO Attending Provider, Referrin g Provider Active Team Status: Inactive Member Role Status Dates Dr. Wilfredo Reno MD Primary Care Provider Active Start: December 24, 2024 End: December 24, 2024 Dr. Wilfredo Reno MD Referring Provider Active S tart: December 24, 2024 End: December 24, 2024 Dr. Clementina Peñaloza MD Attending Provider Active Start: December 24, 2024 End: December 24, 2024 Team Status: Inactive Member Role Status Dates Dr. Wilfredo Reno MD Primary Care Provider Active Start: December 24, 2024 End: December 24, 2024 Dr. Clementina Peñaloza MD Attending Provider Active Start: December 24, 2024 End: December 24, 2024 Dr. Clementina Peñaloza MD Referring Provider Active Start: December 24, 2024 End: December 24, 2024 FOR RECORDS PERTAINING TO PATIENTS WHO ARE OR HAVE BEEN ENROLLED IN A CHEMICAL DEPENDENCY/SUBSTANCEABUSE PROGRAM, SOME INFORMATION MAY BE OMITTED. This clinical summary was aggregated from multiple sources. Caution should be exercised in using it in the provision of clinical care. This summary normalizes information from multiple sources, and as a consequence, information in this document may materially change the coding, format and clinical context of patient data. In addition, data may be omitted in some cases. CLINICAL DECISIONS SHOULD BE BASED ON THE PRIMARY CLINICAL RECORDS. [employer] provides no warranty or guarantee of the accuracy or completeness of information in this document.
--- NOTE | 2025-02-03 07:26 | ECHOD_ITS ---
Reason For Study Reason For Study: Syncope Procedure This was a 2D Doppler, Color Flow transthoracic echocardiogram. Exam performed in department. Left Ventricle Normal LV size. Mild concentric left ventricular hypertrophy. The LV ejection fraction is 65 %. Stage 1 diastolic dysfunction. Right Ventricle Normal right ventricle. Atria The left atrium is mildly enlarged. Normal right atrium. Bubble contrast study is negative for PFO/ASD. Mitral Valve Trivial mitral valve insufficiency. Tricuspid Valve Trivial tricuspid valve insufficiency. Unable to estimate RV systolic pressure due to insufficient tricuspid regurgitant envelope. Aortic Valve Mildly calcified aortic valve. Mild aortic valve stenosis with mean peak gradient 10.5 mmHg. Valve area estimated at 1.6 cm??. Pulmonic Valve Trivial pulmonic valve insufficiency. Great Vessels Normal sized aortic root. Pericardium/Pleural No pericardial effusion. Medication 22 gauge I.V. with prn adaptor inserted into right arm. Performed a rapid injection of agitated mix of 9 cc saline and 1cc air to assess for atrial septal defect. MMode/2D Measurements & Calculations LVIDd: 4.8 cm IVSd: 1.2 cm LVOT diam: 2.3 cm LVIDs: 3.4 cm LVPWd: 1.2 cm RVDd: 3.4 cm FS: 30.0 % LVOT area: 4.2 cm2 Ao root diam: 3.8 cm LAV(MOD-bp): 49.4 ml LVAd ap4: 30.2 cm2 LA dimension: 4.2 cm LAV(MOD-bp) Indexed: 23.8 ml/m2 LVLd ap4: 8.2 cm LAV(MOD-sp2): 52.0 ml EDV(MOD-sp4): 90.4 ml LAV(MOD-sp4): 47.0 ml EDV(sp4-el): 94.6 ml LVAs ap4: 17.9 cm2 LVLs ap4: 6.6 cm ESV(MOD-sp4): 40.2 ml ESV(sp4-el): 41.5 ml EF(MOD-sp4): 55.6 % EF(sp4-el): 56.1 % SV(MOD-sp4): 50.2 ml SV(sp4-el): 53.0 ml Aortic Valve Planimetry: 1.6 cm2 SI(MOD-sp4): 24.2 ml/m2 LA A4 area: 17.6 cm2 LA dimension(2D): 4.4 cm RA A4 area: 15.2 cm2 TAPSE: 1.8 cm Time Measurements MV dec time: 0.23 sec Doppler Measurements & Calculations MV E max nathanael: 56.3 cm/sec Lat Peak E' Nathanael: 10.8 cm/sec Med Peak E' Nathanael: 7.0 cm/sec MV A max nathanael: 75.8 cm/sec E/E' lat: 5.2 E/E' med: 8.0 MV E/A: 0.74 MV V2 max: 78.5 cm/sec MV P1/2t max nathanael: 63.8 cm/sec Ao V2 max: 223.2 cm/sec MV max P.5 mmHg MV P1/2t: 78.3 msec Ao max P.1 mmHg MV V2 mean: 41.7 cm/sec MV dec slope: 238.8 cm/sec2 Ao V2 mean: 149.5 cm/sec MV mean P.82 mmHg MVA(P1/2t): 2.8 cm2 Ao mean P.5 mmHg MV V2 VTI: 26.8 cm Ao V2 VTI: 48.9 cm MVA(VTI): 3.2 cm2 AV (velocity ratio): 0.41 AGUS(I,D): 1.8 cm2 AGUS(V,D): 1.6 cm2 LV V1 max: 82.0 cm/sec SV(LVOT): 86.2 ml PA V2 max: 126.7 cm/sec LV V1 max P.7 mmHg LV V1 mean P.6 mmHg LV V1 mean: 58.8 cm/sec LV V1 VTI: 20.3 cm ECHO/Echo Complete Interpretation Summary Mild concentric left ventricular hypertrophy. The LV ejection fraction is 65 %. Stage 1 diastolic dysfunction. The left atrium is mildly enlarged. Bubble contrast study is negative for PFO/ASD. Mildly calcified aortic valve. Mild aortic valve stenosis with mean peak gradie nt 10.5 mmHg. Valve area estimated at 1.6 cm??. Ordering Physician: Clementina Peñaloza Referring Physician: Clementina Peñaloza Performed By: Sascha Pimentel [facility]
--- NOTE | 2025-02-03 07:26 | CDU_ITS ---
Reason For Study Reason For Study: SYNCOPE Rt. Velocities/BP Lt. Velocities/BP Prox CCA 71.0/19.3 cm/sec. Prox CCA 81.5/23.0 cm/sec. Mid CCA 93.0/20.4 cm/sec. Mid CCA 101.6/35.8 cm/sec. Dist CCA 80.9/18.2 cm/sec. Dist CCA 79.8/33.6 cm/sec. Prox ICA 80.9/24.8 cm/sec. Prox ICA 84.2/33.6 cm/sec. Mid ICA 77.6/33.6 cm/sec. Mid ICA 74.3/36.9 cm/sec. Dist ICA 60.0/30.3 cm/sec. Dist ICA 63.5/32.0 cm/sec. ICA/CCA = 0.9. ICA/CCA = 0.8. Prox ECA 99.6/19.3 cm/sec. Prox ECA 94.1/16.0 cm/sec. Vert. 31.9/11.9 cm/sec. Vert. 46.8/20.6 cm/sec. Right Extracranial There is intimal thickening but no significant atherosclerotic plaque noted in the right common carotid artery. There is heterogeneous, irregular atherosclerotic plaque noted in the right internal carotid artery. There is intimal thickening but no significant atherosclerotic plaque noted in the right external carotid artery. Antegrade flow is noted in the right vertebral artery. Left Extracranial There is intimal thickening but no significant atherosclerotic plaque noted in the left common carotid artery. There is heterogeneous, irregular atherosclerotic plaque noted in the left internal carotid artery. There is intimal thickening but no significant atherosclerotic plaque noted in the left external carotid artery. Antegrade flow is noted in the left vertebral artery. Procedure Carotid Duplex [id number]. This is a Carotid Duplex examination using B-mode, color flow and specral Doppler. The exam was diagnostic. Exam performed in department. VL/Carotid Duplex Ultrasound Interpretation Summary Mild (<50%) stenosis right extracranial internal carotid. Mild (<50%) stenosis left extracranial internal carotid. Patent and antegrade vertebrals bilaterally. Ordering Physician: Clementina Peñaloza Referring Physician: Wilfredo Reno Performed By: Toy Coughlin RVT
--- NOTE | 2025-02-03 11:22 | STRESSREP_ITS ---
Stress Test Report Date: 02/03/2025 Procedure: Exercise tolerance test/imaging study Indications: Syncope Consent: Per the patient Procedure: The patient exercised on a Gerald protocol for 6 minutes and 30 seconds achieving a peak heart rate of 139 bpm (87% predicted maximal heart rate) with a peak blood pressure 180/68 mmHg and a peak MET capacity of 8.4 METs. The baseline ECG demonstrated sinus rhythm. The peak exercise ECG showed ST depressions consistent with ischemia in inferior and anterior leads. No significant cardiac arrhythmias noted during exercise or in recovery. The functional capacity was considered average. There was no complaint of chest discomfort during exercise or recovery. The examination was discontinued secondary to target heart rate being achieved. The patient was injected with 13.3 mCi of technetium 99m Cardiolite and subsequently rest SPECT Cardiolite nuclear imaging was obtained in the horizontal long, vertical long, and short axis views. Post-exercise, the patient was injected with 42.2 mCi of technetium 99m Cardiolite and subsequently stress SPECT Cardiolite nuclear imaging was obtained in the horizontal long, vertical long, and short axis views. A gated Cardiolite study at peak stress was obtained. Rest and stress SPECT Cardiolite nuclear imaging status post realignment, normalization, and attenuation correction, demonstrates mildly reduced perfusion of the inferior wall post stress, suggestive of mild ischemia. There is end systolic thickening and brightening. The gated Cardiolite study demonstrates myocardial thickening and inward wall motion. The reported LVEF is 60%. Impression: 1. Technically adequate (percent predicted maximal heart rate greater than 85%) exercise tolerance test 2. Peak exercise ECG with ST depressions suggestive of ischemia 3. No significant cardiac dysrhythmias during exercise or in recovery 4. Rest and stress SPECT Cardiolite nuclear imaging demonstrate mildly reduced perfusion of the inferior wall poststress, suggestive of mild ischemia. 5. The gated Cardiolite study reports an LVEF of 60%. This note was generated with [employer] software. It may contain incorrect words, spelling, and punctuation that were not noted in checking the note before signing.
== END | disposition home or self-care (01) ==
PROVIDERS: PCP Family Medicine; Referring Provider Internal Medicine Cardiovascular Disease; Visit Provider Internal Medicine Cardiovascular Disease
DX: R55 Syncope and collapse (principal); R29.6 Repeated falls
CPT/HCPCS: 78452; 93017; 93306; 93880; A9500

== ENCOUNTER 2025-02-24 07:18 | Day surgery (SDC) | payer OTHER, SELFPAY ==
[2025-02-15 08:34] LABS: Hematocrit 46.0 % (40-54); Hemoglobin 15.9 g/dL (13.0-16.5); Immature Granulocytes Count 0.010 X10^3/uL (0.0-0.0); Mean Corp Hgb Conc 34.6 g/dL (32-36); Mean Corpuscular Volume 92.7 fL (80-94); Mean Platelet Vol. 9.5 fl (6.2-12.0); NRBC Flagged by Analyzer 0 % (0-5); Platelet Count 250 K/mm3 (150-450); RBC Distribution Width CV 13.2 % (11.6-14.6); RBC Distribution Width SD 45.0 fl (35.1-43.9); Red Blood Count 4.96 M/mm3 (4.6-6.2); White Blood Count 5.0 K/mm3 (4.4-11.0)
[2025-02-15 09:13] LABS: Prothrombin Time (Protime)PT. 13.2 SECONDS (11.7-14.9)
[2025-02-15 09:14] LABS: Partial Thromboplast Time 29.8 Seconds (24.1-36.2)
[2025-02-15 09:24] LABS: Anion Gap 11 (5-15); BUN 13 mg/dL (4-19); BUN/Creat Ratio 12.9 RATIO (10-20); Calcium,Total 10.1 mg/dL (7.6-11.0); Carbon Dioxide 25.5 mmol/L (21.0-32.0); Chloride 103 mmol/L (98-108); Glucose 100 mg/dL (70-99); Potassium 4.6 mmol/L (3.3-5.1)
[2025-02-23 08:48] VITALS: BMI 28.3
--- NOTE | 2025-03-22 09:46 | CL.D_ITS ---
Patient Name: MARY HECK Study Date: 02/24/2025 Performing: Clementina Peñaloza MD Ht: 71 inches 180.34 cm : 1965 Wt: 203.3 lbs 92.08 kg Age: 59 Gender: male BSA: 2.12 PROCEDURE(S) PERFORMED DC02-(58436)LHC/COR IC10-([id number])FFR, CORONARY OR GRAFT, INITIAL VESSEL CLINICAL PROFILE AND INDICATIONS Indications: Suspected CAD Heart Failure: None Stress/Imaging Stress Test w/SPECT MPI: Yes Result: Positive Intermediate RiskStress Test with SPECT MPI: Positive Intermediate Risk CAD Presentations: No Sxs, no angina. CONCLUSIONS 50% Mid LDA, iFR 0.95, FFR 0.92 RECOMMENDATIONS Medical therapy Risk factor modification DESCRIPTION OF PROCEDURE The patient arrived to the procedure lab. The risks and benefits of the procedure as well as a full description of our services here and current unavailability of surgical backup were fully explained to the patient and/or their significant other prior to the catheterization. The Timeout was completed, verifying the correct patient and procedure. The patient's procedural site was prepped and draped in the usual fashion. Local anesthetic was given subcutaneously to right radial region with Lidocaine 2%. Using a modified Seldinger technique, arterial access was obtained via the right radial artery, a 6Fr sheath was inserted. Left Coronary Artery selective angiography was performed in multiple views using a 5 Fr. 4.0 [place] catheter. Right Coronary Artery selective angiography was then performed in multiple views using a 5 Fr. 3DRC (Jose) catheter.The arterial sheath was pulled and a TR Band was applied for hemostasis 13 ml of air CORONARY ANGIOGRAPHY DOMINANCE: Right Dominant LEFT MAIN: Angiographically normal LEFT ANTERIOR DESCENDING ARTERY: LAD: Tubular 40% Proximal lesion in LAD Tubular 50% Mid lesion in LAD CIRCUMFLEX ARTERY: Angiographically normal RIGHT CORONARY ARTERY: Angiographically normal COMPLICATIONS No Complications PROCEDURE MEDICATIONS Versed 1 mg IV Fentanyl 50 mcg IV Versed 1 mg IV Fentanyl 50 mcg IV Oxygen: 2 L/min via nasal cannula Adenosine drip for FFR 25.8 ml IV @ 02/24/2025 10:04:54 Heparin given IA 02/24/2025 09:41:41 Heparin 6000 unit(s) IV 02/24/2025 09:54:47 Verapamil 2.5mg, Ntg 200mcgs, 2000 units of Heparin given IA 02/24/2025 09:41:41 IV Bolus: .9 NaCl 250 ml total 02/24/2025 09:48:52 SUMMARY OF HEMODYNAMIC DATA Time AIR REST ECG 07:48:20 ECG 09:29:43 AO 90/72 (81) SA 09:49:20 AO 112/77 (93) 10:00:55 AO 131/76 (97) 10:05:16 10:19:08 Signed By Clementina Peñaloza MD On 02/24/2025 10:22:12 Clementina Peñaloza MD
--- NOTE | 2025-03-22 09:46 | CL.D_ITS ---
Patient Name: MARY HECK Study Date: 02/24/2025 Performing: Clementina Peñaloza MD Ht: 71 inches 180.34 cm : 1965 Wt: 203.3 lbs 92.08 kg Age: 59 Gender: male BSA: 2.12 PROCEDURE(S) PERFORMED DC02-(16639)LHC/COR IC10-([id number])FFR, CORONARY OR GRAFT, INITIAL VESSEL CLINICAL PROFILE AND INDICATIONS Indications: Suspected CAD Heart Failure: None Stress/Imaging Stress Test w/SPECT MPI: Yes Result: Positive Intermediate RiskStress Test with SPECT MPI: Positive Intermediate Risk CAD Presentations: No Sxs, no angina. CONCLUSIONS 50% Mid LDA, iFR 0.95, FFR 0.92 RECOMMENDATIONS Medical therapy Risk factor modification DESCRIPTION OF PROCEDURE The patient arrived to the procedure lab. The risks and benefits of the procedure as well as a full description of our services here and current unavailability of surgical backup were fully explained to the patient and/or their significant other prior to the catheterization. The Timeout was completed, verifying the correct patient and procedure. The patient's procedural site was prepped and draped in the usual fashion. Local anesthetic was given subcutaneously to right radial region with Lidocaine 2%. Using a modified Seldinger technique, arterial access was obtained via the right radial artery, a 6Fr sheath was inserted. Left Coronary Artery selective angiography was performed in multiple views using a 5 Fr. 4.0 [place] catheter. Right Coronary Artery selective angiography was then performed in multiple views using a 5 Fr. 3DRC (Jose) catheter.The arterial sheath was pulled and a TR Band was applied for hemostasis 13 ml of air CORONARY ANGIOGRAPHY DOMINANCE: Right Dominant LEFT MAIN: Angiographically normal LEFT ANTERIOR DESCENDING ARTERY: LAD: Tubular 40% Proximal lesion in LAD Tubular 50% Mid lesion in LAD CIRCUMFLEX ARTERY: Angiographically normal RIGHT CORONARY ARTERY: Angiographically normal COMPLICATIONS No Complications PROCEDURE MEDICATIONS Versed 1 mg IV Fentanyl 50 mcg IV Versed 1 mg IV Fentanyl 50 mcg IV Oxygen: 2 L/min via nasal cannula Adenosine drip for FFR 25.8 ml IV @ 02/24/2025 10:04:54 Heparin given IA 02/24/2025 09:41:41 Heparin 6000 unit(s) IV 02/24/2025 09:54:47 Verapamil 2.5mg, Ntg 200mcgs, 2000 units of Heparin given IA 02/24/2025 09:41:41 IV Bolus: .9 NaCl 250 ml total 02/24/2025 09:48:52 SUMMARY OF HEMODYNAMIC DATA Time AIR REST ECG 07:48:20 ECG 09:29:43 AO 90/72 (81) SA 09:49:20 AO 112/77 (93) 10:00:55 AO 131/76 (97) 10:05:16 10:19:08 Signed By Clementina Peñaloza MD On 02/24/2025 10:22:12 Clementina Peñaloza MD
== END 2025-02-24 12:45 | disposition home or self-care (01) ==
PROVIDERS: Student in an Organized Health Care Education/Training Program; PCP Family Medicine; Referring Provider Internal Medicine Cardiovascular Disease; Visit Provider Internal Medicine Cardiovascular Disease
DX: I25.10 Atherosclerotic heart disease of native coronary artery without angina pectoris (principal); R55 Syncope and collapse; R94.39 Abnormal result of other cardiovascular function study; I10 Essential (primary) hypertension; E78.5 Hyperlipidemia, unspecified; Z79.82 Long term (current) use of aspirin; Z79.899 Other long term (current) drug therapy; Z87.891 Personal history of nicotine dependence
CPT/HCPCS: 36415; 80048; 85025; 85610; 85730; 93454; 93571; 99152; 99153; J0153; Q9967; C1769; C1894